=== PATIENT | male | born 1950 | race Caucasian/White ===

== ENCOUNTER 2021-04-25 12:05 | Inpatient (IN) | payer MEDICARE ==
[2021-04-25] MEDS ORDERED: Acetaminophen 325 MG Tab PO PRN (12:38)
[2021-04-25] MEDS ORDERED: Ondansetron 4 MG Tab.DIS PO PRN (12:38)
--- NOTE | 2021-04-25 12:49 | PCM.HP.2 ---
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 lucero for a right total knee arthroplasty. He did tolerate the procedure well. After the surgery he developed an ileus which did prolong his hospital stay. He also had some acute delirium secondary to the pain medications that he was on. He was being seen by physical therapy and occupational therapy and by 04/25/2021 and he was deemed good enough for discharge to an outside facility for ongoing therapies. He presents here today for short-term swing bed stay for physical therapy and occupational therapy as well as some nursing assistance prior to his ability to return home. At this time Markel notes that he is feeling well. He has no concerns other than getting strong enough to return home. Does have some swelling and discoloration to the right lower leg. Is doing well from a pain control standpoint would like to continue on with the Tylenol only given the reaction that he had high-level pain medications. We did review his full past medical history in his medications. Did discuss that he'll be on an oral medication for blood clot prevention and he notes understanding. He looks forward to getting started on his therapies and getting home. Past Medical History Cardiovascular History: Reports: High Cholesterol, Hypertension Respiratory History: Reports: Sleep Apnea Gastrointestinal History: Reports: Cirrhosis (secondary to chornic hep c), GERD (with erosive esophagitis) Genitourinary History: Reports: Prostate Disorder (BPH and s/p prostate cancer) Musculoskeletal History: Reports: Arthritis (s/p right total knee arthroplasty) Psychiatric History: Reports: Anxiety H&P Review of Systems - Review of Systems: Review Of Systems: See Below General: Reports: No Symptoms HEENT: Reports: No Symptoms Pulmonary: Reports: No Symptoms Cardiovascular: Reports: No Symptoms Gastrointestinal: Reports: No Symptoms Genitourinary: Reports: No Symptoms Musculoskeletal: Reports: Leg Pain (right knee and lower leg with some mild pains) Skin: Reports: Bruising (right lower leg) Psychiatric: Reports: No Symptoms Neurological: Reports: No Symptoms Hematologic/Lymphatic: Reports: No Symptoms Immunologic: Reports: No Symptoms Exam - Exam Exam: See Below - Vital Signs Vital Signs: Last Vital Signs Temp 98.0 F 04/25/21 12:41 Pulse 85 04/25/21 12:41 Resp BP 102/79 04/25/21 12:41 Pulse Ox 95 04/25/21 12:41 - Exam General: Alert, Oriented HEENT: Conjunctiva Clear, EOMI, Mucosa Moist & [place] Neck: Supple, Trachea Midline Lungs: Normal Respiratory Effort, Crackles (fine crackles at the bilateral bases (OHS?)) Cardiovascular: Regular Rate, Regular Rhythm GI/Abdominal Exam: Normal Bowel Sounds, Soft, Non-Tender Back Exam: Normal Inspection Extremities: Pedal Edema (RLE with some tenderness to palpation of the anterior calf) Skin: Warm, Dry, Intact, Other (surgical site is not evaluated as bandage is in place) Neuro Extensive - Mental Status: Alert, Oriented x3, Normal Mood/Affect, Normal Cognition Neuro Extensive - Motor, Sensory, Reflexes: CN II-XII Intact, Abnormal Gait (patient with use of walker and slight antalgia due to need of offloading right leg) Psychiatric: Alert, Normal Affect, Normal Mood Sepsis Event Note - Focused Exam Vital Signs: Vital Signs Temp Pulse BP Pulse Ox 04/25/21 12:41 98.0 F 85 102/79 95 *Q Meaningful Use (ADM) - VTE *Q VTE Anticoagulation Contraindications: Medical/Procedure Contrai - Problem List (1) Physical deconditioning SNOMED Code(s): 97496114996804 ICD Code: R53.81 - OTHER MALAISE Status: Acute Current Visit: Yes (2) Total knee replacement status SNOMED Code(s): 0186220009702, [id number], 4828604359882 ICD Code: Z96.659 - PRESENCE OF UNSPECIFIED ARTIFICIAL KNEE JOINT Status: Acute Current Visit: Yes Problem List Initiated/Reviewed/Updated: Yes Orders Last 24hrs: Active Orders 24 hr Category Date Time Status Patient Status [ADT] Routine ADT 04/25/21 12:38 Ordered Oxygen Therapy [RC] PRN Care 04/25/21 12:38 Ordered Up With Assistance [RC] ASDIRECTED Care 04/25/21 12:38 Ordered VTE/DVT Education [RC] PER UNIT ROUTINE Care 04/25/21 12:38 Ordered Vital Signs [RC] Q4H Care 04/25/21 12:38 Ordered Regular Diet [DIET] Diet 04/25/21 Lunch Ordered CBC WITH AUTO DIFF [HEME] AM Lab 04/26/21 05:11 Ordered COMPREHENSIVE METABOLIC PN,CMP [CHEM] AM Lab 04/26/21 05:11 Ordered Acetaminophen [TylenoL] Med 04/25/21 12:38 Ordered 650 mg PO Q4H PRN Ondansetron [Zofran ODT] Med 04/25/21 12:38 Ordered 4 mg PO Q4H PRN Anticoagulation Contraindications VTE [AST] Per Unit Oth 04/25/21 12:38 Ordered Routine Resuscitation Status Routine Resus Stat 04/25/21 12:38 Ordered Medication Orders Acetaminophen (Acetaminophen 325 Mg Tab) 650 mg PO Q4H PRN PRN Reason: Pain (Mild 1-3)/fever Ondansetron HCl (Ondansetron 4 Mg Tab.Dis) 4 mg PO Q4H PRN PRN Reason: nausea, able to take PO Assessment/Plan Comment:: Physical deconditioning S/P total right knee arthroplasty - Patient is status post total right knee arthroplasty on 04/17/2021 - A bit slow to recover and was discharged to [facility] or facility for ongoing PT/OT Plan - Continue eliquis 2.5 mg twice a day (Zechariah wanted us on for 12 days post operative which would bring us throug hthe evening of 04/29/21) - Lidocaine patch PRN - PT/OT - Tylenol prn for pain - heating pad and ice OK as needed Chronic: - HTN: Continue home losartan 50 mg daily, Coreg 3.125 mg twice a day added as well on discharge for uncontrolled BP - Coronary artery disease: Continue home aspirin, Lipitor 20 mg daily, nitro when necessary - Mood: Continue home citalopram 20 mg daily - GERD: Continue home omeprazole 20 mg daily - BPH: continue home flomax 0.4mg daily Diet: Regular DVT: oral anticoag through 04/29, will then discuss need for add-on CODE: FULL Disposition: Anticipate 1-2 weeks of hospital stay for therapies as well as nursing assistance prior to patient's ability to return home. - Mortality Measure Prognosis:: Good
[2021-04-25] MEDS ORDERED: Loperamide 2 MG Cap PO PRN (13:32)
[2021-04-25] MEDS ORDERED: Bisacodyl 5 MG Tab PO PRN (13:32)
[2021-04-25] MEDS ORDERED: Nitroglycerin 0.4 MG Tab.SL SL PRN (13:32)
[2021-04-25] MEDS: Carvedilol 3.125 MG Tab PO SCH (17:37)
[2021-04-25] MEDS: Apixaban 2.5 MG Tab PO SCH (19:28)
[2021-04-25] MEDS: MILK THISTLE 175 MG PO SCH (19:28)
[2021-04-25] MEDS: Citalopram 20 MG Tab PO SCH (19:28)
[2021-04-25] MEDS: Acetaminophen 500 MG Tab PO PRN (19:30)
[2021-04-26] MEDS: Omeprazole 20 MG Cap.CR PO SCH (06:33)
[2021-04-26] MEDS: Lidocaine 4% 1 each Patch TOP SCH (08:20)
[2021-04-26] MEDS: atorvaSTATin 10 MG Tab PO SCH (08:22)
[2021-04-26] MEDS: Carvedilol 3.125 MG Tab PO SCH ×2 (08:22→17:51)
[2021-04-26] MEDS: Apixaban 2.5 MG Tab PO SCH ×2 (08:22→20:26)
[2021-04-26] MEDS: Losartan 50 MG Tab PO SCH (08:22)
[2021-04-26] MEDS: Multivitamins with Iron/Calcium/Folic Acid/Minerals Tab PO SCH (08:23)
[2021-04-26] MEDS: Aspirin 81 MG Tab.EC PO SCH (08:23)
[2021-04-26] MEDS: MILK THISTLE 175 MG PO SCH ×2 (08:23→20:27)
[2021-04-26] MEDS: Polyethylene Glycol 3350 Powder 17 GM Packet PO SCH (08:24)
[2021-04-26] MEDS: TURMERIC ROOT EXTRACT 1000 MG PO SCH (08:24)
[2021-04-26 08:29] LABS: CHLORIDE,CL 103 mmol/L (98-107); SODIUM,NA 139 mmol/L (136-145)
[2021-04-26 08:34] LABS: ANION GAP 10.4 mmol/L (5-15)
[2021-04-26] MEDS: Acetaminophen 500 MG Tab PO PRN ×2 (11:38→21:43)
[2021-04-26] MEDS: Citalopram 20 MG Tab PO SCH (20:26)
[2021-04-26] MEDS: REMOVE LIDOCAINE TRDERM SCH (20:27)
[2021-04-27] MEDS: Omeprazole 20 MG Cap.CR PO SCH (06:00)
[2021-04-27] MEDS: atorvaSTATin 10 MG Tab PO SCH (07:26)
[2021-04-27] MEDS: Losartan 50 MG Tab PO SCH (07:26)
[2021-04-27] MEDS: Apixaban 2.5 MG Tab PO SCH ×2 (07:27→19:41)
[2021-04-27] MEDS: Aspirin 81 MG Tab.EC PO SCH (07:27)
[2021-04-27] MEDS: Multivitamins with Iron/Calcium/Folic Acid/Minerals Tab PO SCH (07:27)
[2021-04-27] MEDS: Carvedilol 3.125 MG Tab PO SCH ×2 (07:27→17:41)
[2021-04-27] MEDS: MILK THISTLE 175 MG PO SCH ×2 (07:28→19:42)
[2021-04-27] MEDS: TURMERIC ROOT EXTRACT 1000 MG PO SCH (07:28)
[2021-04-27] MEDS: Lidocaine 4% 1 each Patch TOP SCH (07:29)
[2021-04-27] MEDS: Polyethylene Glycol 3350 Powder 17 GM Packet PO SCH (07:31)
[2021-04-27] MEDS: Acetaminophen 500 MG Tab PO PRN ×2 (10:06→19:41)
[2021-04-27] MEDS: Citalopram 20 MG Tab PO SCH (19:41)
[2021-04-27] MEDS: REMOVE LIDOCAINE TRDERM SCH (19:52)
[2021-04-28] MEDS: Omeprazole 20 MG Cap.CR PO SCH ×2 (05:57→06:07)
[2021-04-28] MEDS: Aspirin 81 MG Tab.EC PO SCH (08:07)
[2021-04-28] MEDS: atorvaSTATin 10 MG Tab PO SCH (08:07)
[2021-04-28] MEDS: Multivitamins with Iron/Calcium/Folic Acid/Minerals Tab PO SCH (08:07)
[2021-04-28] MEDS: Carvedilol 3.125 MG Tab PO SCH ×2 (08:07→17:53)
[2021-04-28] MEDS: Losartan 50 MG Tab PO SCH (08:08)
[2021-04-28] MEDS: Lidocaine 4% 1 each Patch TOP SCH (08:08)
[2021-04-28] MEDS: MILK THISTLE 175 MG PO SCH ×2 (08:08→19:45)
[2021-04-28] MEDS: Apixaban 2.5 MG Tab PO SCH ×2 (08:08→19:46)
[2021-04-28] MEDS: TURMERIC ROOT EXTRACT 1000 MG PO SCH (08:09)
[2021-04-28] MEDS: Polyethylene Glycol 3350 Powder 17 GM Packet PO SCH (08:11)
[2021-04-28] MEDS: Acetaminophen 500 MG Tab PO PRN ×2 (13:02→19:46)
[2021-04-28] MEDS: Citalopram 20 MG Tab PO SCH (19:46)
[2021-04-28] MEDS: REMOVE LIDOCAINE TRDERM SCH (19:47)
[2021-04-29] MEDS: Acetaminophen 500 MG Tab PO PRN ×3 (01:35→18:47)
[2021-04-29] MEDS: Omeprazole 20 MG Cap.CR PO SCH (06:01)
[2021-04-29] MEDS: Losartan 50 MG Tab PO SCH (07:46)
[2021-04-29] MEDS: Aspirin 81 MG Tab.EC PO SCH (07:46)
[2021-04-29] MEDS: Carvedilol 3.125 MG Tab PO SCH ×2 (07:47→17:39)
[2021-04-29] MEDS: Multivitamins with Iron/Calcium/Folic Acid/Minerals Tab PO SCH (07:47)
[2021-04-29] MEDS: Apixaban 2.5 MG Tab PO SCH ×2 (07:47→20:36)
[2021-04-29] MEDS: atorvaSTATin 10 MG Tab PO SCH (07:47)
[2021-04-29] MEDS: Polyethylene Glycol 3350 Powder 17 GM Packet PO SCH (07:49)
[2021-04-29] MEDS: MILK THISTLE 175 MG PO SCH ×2 (07:49→20:38)
[2021-04-29] MEDS: TURMERIC ROOT EXTRACT 1000 MG PO SCH (07:50)
[2021-04-29] MEDS: Lidocaine 4% 1 each Patch TOP SCH (07:50)
--- OUTSIDE RECORDS SUMMARY | 2021-04-29 09:35 | XMSREPORT ---
:1950 Author Organization [facility] Address [address] [place] [address] [address] [place] [address] Care Team Providers Name Role Phone Provider, Attributed RESOURCE Attributed Provider Unavailab kolton Colon MD Primary Care Provider Reason for Visit Auth/Cert (Routine) Status Reason Specialty Diagnoses / Referred By Referred To Procedures Contact Contact Continuity of Diagnoses Bilateral primary osteoarthritis of knee Joaquín Robles MD Care Procedures ARTHROPLASTY KNEE CONDYLE & PLATEAU MEDIAL & LAT COMPARTMENTS [facility] [address] [place] [id number] Encounter Details Date Type Department Care Team Description 04/17/2021 - Hospital Encounter [facility] Joaquín Robles MD Ileus ([facility]) 04/25/[address] [place] [address] [address] [place] [address] [place] [address] [phone] Allergies Active Allergy Reactions Severity Noted Date Comments Codeine Other (Specify in Comments) Low 03/31/2013 Constipation documented as of this encounter (statuses as of 04/25/2021) Medications Medication Sig Dispensed Refills Start Date End Date Status milk thistle 250 MG CAPS Take 2 capsules 0 Active by mouth 1 time per day nitroglycerin Dissolve 1 30 tablet 1 06/18/2018 Acti ve (NITROSTAT) 0.4 mg tablet (0.4 mg) sublingual under the tongue tabletIndications: Every 5 minutes Nonobstructive as needed for atherosclerosis of chest pain May coronary artery repeat every 5 minutes for a total of 3 doses. 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) Additional Information Patient taking differently: 20 mg Oral Bedtime, Informant: Self, Reported on 04/17/2021 tamsulosin (FLOMAX) Take 0.4 mg by 0 Active 0.4 mg capsule mouth Take as directed atorvaSTATin Take 20 mg by mouth 0 Active (LIPITOR) 20 mg 1 time per day tablet Multiple Vitamin Take 2 tablets by 0 Active (MULTIVITAMIN) mouth 1 time per tablet day omeprazole Take 20 mg by mouth 0 Active (PRILOSEC) 20 mg 1 time a day in the capsule morning Take as directed Turmeric (QC TUMERIC Take 2,000 mg by 0 Active COMPLEX PO) mouth 1 time per day acetaminophen Take 2 tablets (650 40 tablet 0 04/18/ Active (TYLENOL) 325 mg mg) by mouth every 021 tabletIndications: 6 hours as needed Status post total for mild pain right knee replacement oxyCODONE (OXY-IR) 5 Take 1-2 tablets 40 tablet 0 04/18/2 Active mg tablet (immediate (5-10 mg) by mouth 021 release)Indications: Every 4 hours as Status post total needed for moderate right knee pain or severe pain replacement aspirin (ECOTRIN LOW Take 1 tablet (81 30 tablet 0 04/22/2 Active STRENGTH) 81 MG mg) by mouth 1 time 021 enteric coated per day tabletIndications: Status post total right knee replacement apixaban (ELIQUIS) Take 1 tablet (2.5 24 tablet 0 24/2 Active 2.5 MG mg) by mouth 2 021 tabletIndications: times a day Prophylaxis of DVT Indications: in Orthopedic Prophylaxis of Deep Surgery Vein Thrombosis in Orthopedic Surgery bisacodyl (DULCOLAX) Take 1 tablet (5 30 tablet 0 04/21/2 Active 5 mg mg) by mouth 2 021 tabletIndications: times a day as Status post total needed for right knee constipation replacement polyethylene glycol Take 1 packet by 30 packet 0 04/22/2 Active (MIRALAX) 17 g mouth 1 time per 021 packetIndications: day Dissolve in 4 Status post total to 8 ounces of right knee water, juice, soda, replacement coffee, tea. losartan 50 mg Take 1 tablet (50 90 tablet 4 25/2 04/27/ Active tabletIndications: mg) by mouth 1 time 021 0 22 Essential per day hypertension acetaminophen Take 2 tablets 60 tablet 0 A ctive (TYLENOL) 500 mg (1,000 mg) by mouth 021 tabletIndications: Every 6 hours Chronic low back pain with sciatica, sciatica laterality unspecified, unspecified back pain laterality lidocaine (LIDODERM) Apply 2 patches 30 patch 0 Active 5% patchIndications: topically 1 time 021 Chronic low back per day Patches may pain with sciatica, be left on for up sciatica laterality 12 hours in a 24 unspecified, hour period. unspecified back pain laterality loperamide (IMODIUM) Take 2 caps after 20 capsule 0 Active 2 mg the first loose 021 capsuleIndications: stool, then 1 cap Functional diarrhea after each loose stool, but no more than 8 caps per day. carVEDilol (COREG) Take 1 tablet 180 tablet 4 2 Active 3.125 mg (3.125 mg) by mouth 021 022 tabletIndications: 2 times a day with Essential meals hypertension doxycycline Take 1 tablet (100 20 tablet 0 2 Discontinued (VIBRAMYCIN) 100 mg mg) by mouth 2 (Therapy tabletIndications: times a day completed) Upper respiratory tract infection, unspecified type benzonatate Take 1 capsule (200 30 capsule 0 Discontinued (TESSALON) 200 MG mg) by mouth 3 018 021 (Therapy capsuleIndications: times a day as completed) Cough needed for cough sildenafil 20 mg Take up to 5 tabs 30 tablet 6 04/17 Discontinued tabletIndications: one hour before 021 (Duplicate) Other male erectile sexual intercourse dysfunction losartan 25 mg Take 1 tablet (25 90 tablet 3 2 Discontinued (Stop tabletIndications: mg) by mouth 1 time 018 0 21 Taking at Hypertension, per day Discha rge) unspecified type pantoprazole Take 1 tablet (40 60 tablet 1 2 Discontinued (PROTONIX) 40 mg mg) by mouth 2 021 (Duplicate) enteric coated times a day before tabletIndications: meals Erosive esophagitis sildenafil (VIAGRA) Take 1 tab one hour 6 tablet 11 Discontinued (Stop 100 MG prior to 021 021 Taking at tabletIndications: anticipated sexual Discharge) Erectile dysfunction activity. 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 Perez Vertebral body hemangioma 07/19/2013 Overview: T 6 Chronic hepatitis C 07/17/2013 Prostate cancer 02/17/2013 Elevated PSA 01/06/2013 Arthritis of knee, degenerative 10/03/2012 documented as of this encounter (statuses as of 04/25/2021) Resolved Problems Problem Noted Date Resolved Date Paraspinal muscle spasm 08/10/2013 08/31/2013 Acute back pain 07/19/2013 08/10/2013 documented as of this encounter (statuses as of 04/25/2021) Immunizations Name Administration Dates Next Due Hep A-Hep B 11/10/2013, 05/12/2013, 04/11/2013 Influenza Vaccine,unspecified 09/22/2000 Pneumococcal Conj PCV13 12/16/2017 documented as of this encounter Social History Tobacco Use Types Packs/Day Years Used Date Never Smoker Smokeless Tobacco: Never Used Alcohol Use Standard Drinks/Week Comments Yes 0 (1 standard drink = 0.6 oz pure alcoho l) Alcohol Habits Answer Date Recorded How often do you have a drink containing alcohol? Monthly or less 05/12/2019 How many drinks containing alcohol do you have on a Not aske d typical day when you are drinking? How often do you have six or more drinks on one Not asked occasion? Sexually Active Control Partners Comments Yes Female Sex Assigned at Date Recorded Not on file documented as of this encounter Last Filed Vital Signs Vital Sign Reading Time Taken Comments Blood Pressure 179/88 04/25/2021 7:08 AM CDT Pulse 74 04/25/2021 7:08 AM CDT Temperature 36.7 C (98.1 F) 04/25/2021 7:08 AM CDT Respiratory Rate 18 04/25/2021 7:08 AM CDT Oxygen Saturation 98% 04/25/2021 7:08 AM CDT Inhaled Oxygen Concentration - - Weight 158 kg (348 lb 5.2 oz) 04/17/2021 8:58 AM CDT Height 182.9 cm (6') 04/15/2021 8:56 AM CDT Body Mass Index 47.24 04/15/2021 8:56 AM CDT documented in this encounter Functional Status Functional Status Response Date of Assessment Is the person deaf or does he/she have serious difficulty No 06/04/2018 hearing? Is this person blind or does he/she have difficulty No 06/04/2018 seeing even when wearing glasses? Do you have difficulty with walking, balance, climbing Yes 06/04/2018 stairs, or had a fall in the last 3 months? Does the patient have difficulty dressing or bathing? No 06/04/2018 Because of a physical, mental, or emotional condition; No 06/04/2018 does this person have difficulty doing errands alone such as visiting a doctor's office or shopping? Cognitive Status Response Date of Assessment Because of a physical, mental, or emotional condition; No 06/04/2018 does this person have serious difficulty concentrating, remembering, or making decisions? documented as of this encounter Discharge Summaries See, Dale Short MD - 04/21/2021 8:53 AM CDT Images from the original note were not included. Hospital Discharge Summary Attending Physician: Joaquín Robles MD Attending Physician Specialty: Orthopedic Surgery Admit Date: 04/17/2021 Discharge Date: 05/24/21 Primary Care Physician: Kyle Colon MD Discharge Diagnoses 1. Ileus (HCC) 2. Status post total right knee replacement Total knee replacement status 3.Constipation, postoperative ileus. Resolved. 4.Coronary artery disease 5. Hypertension 6. Prediabetes 7. Depression 8. Hyperlipidemia 9. Morbid obesity 10. History of prostate cancer. BPH: 11.Liver cirrhosis secondary to Hepatitis C infection 12. History of gastric ulcers Hospital Course The patient is a 71-year-old male with past medical history of hypertension, coronary artery disease, hyperlipidemia, morbid obesity, prostate cancer, and liver cirrhosis secondary to hepatitis C infection. The patient was admitted by Dr. Joaquín Robles on 04/17/2021 for a right total knee replacement. Postoperatively, he developed ileus. He was seen by PT, OT, and it is recommended that he go to a fdc for continued therapy. He will follow up with his primary care provider and Dr. Robles after discharge. Receipt: [id number] Trans ID: [id number] PRODUCTION SANITIZER PRODUCTION SANITIZER LabTests Pending at Discharge Unresulted Pathology Orders (From admission, onward) Start Ordered 04/17/211201 TISSUE EXAM RELEASE UPON ORDERING, Routine Comments: Specimen A: Right knee bone and tissue Start: 04/17/211201 End: None 04/17/211201 Follow-Up Scheduled Contact information for follow-up [place], [facility], RESOURCE [address] [place] [id number] Next Steps: Follow up Instructions: Staff will provide services and therapies as needed. Preliminary Discharge Medications This list of medications is preliminary and tentative. Please see the After Visit Summary for the final and accurate medication list. Discharge Medication List START taking these medications START: acetaminophen 325 mg tablet Commonly known as: TYLENOL Dose: 650 mg Take 2 tablets (650 mg) by mouth every 6 hours as needed for mild pain START: apixaban 2.5 MG tablet Commonly known as: ELIQUIS Dose: 2.5 mg Take 1 tablet (2.5 mg) by mouth 2 times a day Indications: Prophylaxis of Deep Vein Thrombosis in Orthopedic Surgery START: aspirin 81 MG enteric coated tablet Commonly known as: ECOTRIN LOW STRENGTH Dose: 81 mg Take 1 tablet (81 mg) by mouth 1 time per day Start taking on: April 22, 2021 START: bisacodyl 5 mg tablet Dose: 5 mg Take 1 tablet (5 mg) by mouth 2 times a day as needed for constipation START: oxyCODONE 5 mg tablet (immediate release) Commonly known as: OXY-IR Dose: 5-10 mg Take 1-2 tablets (5-10 mg) by mouth Every 4 hours as needed for moderate pain or severe pain START: polyethylene glycol 17 g packet Commonly known as: MIRALAX Dose: 1 packet Take 1 packet by mouth 1 time per day Dissolve in 4 to 8 ounces of water, juice, soda, coffee, tea. Start taking on: April 22, 2021 CONTINUE taking these medications which have NOT CHANGED CONTINUE: atorvaSTATin 20 mg tablet Commonly known as: LIPITOR Dose: 20 mg Take 20 mg by mouth 1 time per day CONTINUE: escitalopram 20 mg tablet Commonly known as: LEXAPRO TAKE 1 TABLET BY MOUTH EVERY NIGHT AT BEDTIME CONTINUE: losartan 25 mg tablet Dose: 25 mg Take 1 tablet (25 mg) by mouth 1 time per day CONTINUE: milk thistle 250 MG Caps Dose: 2 capsule Take 2 capsules by mouth 1 time per day CONTINUE: multivitamin tablet Dose: 2 tablet Take 2 tablets by mouth 1 time per day CONTINUE: nitroglycerin 0.4 mg sublingual tablet Commonly known as: NITROSTAT Dose: 0.4 mg Dissolve 1 tablet (0.4 mg) under the tongue Every 5 minutes as needed for chest pain May repeat every 5 minutes for a total of 3 doses. CONTINUE: omeprazole 20 mg capsule Commonly known as: priLOSEC Dose: 20 mg Take 20 mg by mouth 1 time a day in the morning Take as directed CONTINUE: QC TUMERIC COMPLEX PO Dose: 2,000 mg Take 2,000 mg by mouth 1 time per day CONTINUE: tamsulosin 0.4 mg capsule Commonly known as: FLOMAX Dose: 0.4 mg Take 0.4 mg by mouth Take as directed You might also be taking other medications not listed above. If you have questions about any of your other medications, talk to the person who prescribed them or your Primary Care Provider. STOP taking these medications STOP: sildenafil 100 MG tablet Commonly known as: VIAGRA Where to Get Your Medications These medications were sent to [facility]/pharmacy #[id number] [place] [id number] [place] [id number] [place] [id number] acetaminophen 325 mg tablet apixaban 2.5 MG tablet aspirin 81 MG enteric coated tablet bisacodyl 5 mg tablet oxyCODONE 5 mg tablet (immediate release) polyethylene glycol 17 g packet Physical Exam Vitals and nursing note reviewed. Procedures Performed and Findings All procedures during admission Procedure(s): Right - RIGHT TOTAL KNEE REPLACEMENT - Wound Class: Clean Consultations Obtained CONSULT INTERNAL MEDICINE Discharge Disposition Instructions for after discharge Call 911 and seek emergency care if you experience any chest pain, shortness of breath or if you are coughing up blood Change with occlusive dressing at discharge. Leave dressing on for 7 days, then change every 7 dayswith occlusive dressing until follow up with provider. Purchase 4"x12" Mepilex dressing from pharmacy at discharge Contact your doctor if you develop a temperature of 101 degrees or greater Contact your doctor if you experience any numbness or tingling in your surgical extremity Contact your doctor if you have any pain or swelling in the calf of either leg Contact your doctor if you have any questions in the first week Contact your doctor if you have any redness or warmth around your incision. (Bruising is normal, expect the area around your incision to be bruised and many different shades of purple/yellow as the healing stages progress) Contact your doctor if you have significant side effects from your pain medications such as rash, itching, upset stomach or vomiting Contact your doctor if you notice any drainage from your incision or if the edges of your incision come apart Contact your doctor if your pain medications are not keeping your pain at a tolerable level Elevate affected extremity Elevate affected extremity for 30 minutes 4 times per day and as needed for swelling. While lying flat in bed or on the sofa, elevate your surgical leg on 2-3 pillows so it is above the level of your heart. This will help reduce swelling and pain. Swelling is to be expected for the first couple of weeks after an orthopedic surgery. Ice and elevation are important ways to help manage the swelling and pain. Ice to affected area Ice to affected area: 4-5 times per day for 30 minutes and as needed for swelling. Assess skin every 2 hrs. Do not apply directly on skin. May not return to work until after follow-up appointment No driving No driving until follow-up with your health care provider No tub bath until directed Do not take a tub bath, go swimming, or sit in a hot tub until your doctor tells you that you may do so. No use of alcohol or non-prescription drugs No use of alcohol. Alcohol affects your balance and can be very harmful if taken with pain medications. Also, do not take any non-prescription drugs not listed on your after visit summary without talking with your doctor first. They may cause increased bleeding and other harmful side effects. Notify provider with any questions or concerns Pharmacist: Review anticoagulation indication and dosing for accuracy Pharmacist, review the discharge AVS and: 1. The provider has specified that anticoagulation is not indicated outside thromboprophylaxis in the setting of orthopedic surgery. Please review and contact the prescribing physician if there are inaccuracies in anticoagulation prescribing (ex. wrong dose ordered for indication). 2. Ensure any doses given in the hospital are subtracted from the outpatient prescription quantity if on a set dose for a defined period of time. 3. If anticoagulation was e-prescribed, ensure patient is able to obtain prescription on discharge to prevent delays in therapy (ex. not sent to a mail order pharmacy where therapy could be interruptedfor multiple days). Contact the prescribing provider if medication should be filled locally on discharge. Resume home diet Resume home diet Resume normal activity Walk frequently and gradually increase the distance you are walking Weight bearing status - As tolerated When showering, cover your dressing with waterproof protection such as saran wrap or press and sealand tape so the dressing does not get wet. Medical Decision Making A total of 35 minutes were spent on discharge coordination. documented in this encounter Medications at Time of Discharge Medication Sig Dispensed Refills Start Date End Date loperamide (IMODIUM) 2 Take 2 caps after 20 capsule 0 2020 mg capsuleIndications: the first loose Functional diarrhea stool, then 1 cap after each loose stool, but no more than 8 caps per day. carVEDilol (COREG) 3.125 Take 1 tablet (3.125 180 tablet 4 0 04/25/2021 04/30/2022 mg tabletIndications: mg) by mouth 2 times Essential hypertension a day with meals aspirin (ECOTRIN LOW Take 1 tablet (81 30 tablet 0 04/22/20 21 STRENGTH) 81 MG enteric mg) by mouth 1 time coated per day tabletIndications: Status post total right knee replacement apixaban (ELIQUIS) 2.5 Take 1 tablet (2.5 24 tablet 0 04/21 MG tabletIndications: mg) by mouth 2 times Prophylaxis of DVT in a day Indications: Orthopedic Surgery Prophylaxis of Deep Vein Thrombosis in Orthopedic Surgery bisacodyl (DULCOLAX) 5 Take 1 tablet (5 mg) 30 tablet 0 mg tabletIndications: by mouth 2 times a Status post total right day as needed for knee replacement constipation polyethylene glycol Take 1 packet by 30 packet 0 04/22/2021 (MIRALAX) 17 g mouth 1 time per day packetIndications: Dissolve in 4 to 8 Status post total right ounces of water, knee replacement juice, soda, coffee, tea. losartan 50 mg Take 1 tablet (50 90 tablet 4 04/22/2021 tabletIndications: mg) by mouth 1 time Essential hypertension per day acetaminophen (TYLENOL) Take 2 tablets 60 tablet 0 04/21/20 21 500 mg (1,000 mg) by mouth tabletIndications: Every 6 hours Chronic low back pain with sciatica, sciatica laterality unspecified, unspecified back pain laterality lidocaine (LIDODERM) 5% Apply 2 patches 30 patch 0 021 patchIndications: topically 1 time per Chronic low back pain day Patches may be with sciatica, sciatica left on for up 12 laterality unspecified, hours in a 24 hour unspecified back pain period. laterality acetaminophen (TYLENOL) Take 2 tablets (650 40 tablet 0 325 mg mg) by mouth every 6 tabletIndications: hours as needed for Status post total right mild pain knee replacement oxyCODONE (OXY-IR) 5 mg Take 1-2 tablets 40 tablet 0 2020 tablet (immediate (5-10 mg) by mouth release)Indications: Every 4 hours as Status post total right needed for moderate knee replacement pain or severe pain Turmeric (QC TUMERIC Take 2,000 mg by 0 COMPLEX PO) mouth 1 time per day tamsulosin (FLOMAX) 0.4 Take 0.4 mg by mouth 0 mg capsule Take as directed atorvaSTATin (LIPITOR) Take 20 mg by mouth 0 20 mg tablet 1 time per day Multiple Vitamin Take 2 tablets by 0 (MULTIVITAMIN) tablet mouth 1 time per day omeprazole (PRILOSEC) 20 Take 20 mg by mouth 0 mg capsule 1 time a day in the morning Take as directed escitalopram (LEXAPRO) TAKE 1 TABLET BY 90 tablet 0 019 20 mg tabletIndications: MOUTH EVERY NIGHT AT Alcoholic cirrhosis of BEDTIME liver without ascites (HCC) nitroglycerin Dissolve 1 tablet 30 tablet 1 06/18/2018 (NITROSTAT) 0.4 mg (0.4 mg) under the sublingual tongue Every 5 tabletIndications: minutes as needed Nonobstructive for chest pain May atherosclerosis of repeat every 5 coronary artery minutes for a total of 3 doses. milk thistle 250 MG CAPS Take 2 capsules by 0 mouth 1 time per day documented as of this encounter Progress Notes See, Dale Short MD - 04/23/2021 9:05 AM CDT Images from the original note were not included. DAILY PROGRESS NOTE Markel Lares is a 71yr old male admitted on 04/17/2021 7:41 AM. Impression / Plan 1. Status post right total knee arthroplasty 04/17/2021- continue PT,OT, plan to transfer to rehab 2. Delirium from tramadol -resolved 3. Ileus-dc reglan , resolved 4. Coronary artery disease: Aspirin, Lipitor. 5. Hypertension: increase losartan 6. Prediabetes:dc blood glucose monitoring and Sliding scale insulin 7. Depression: Continue Lexapro 8. Hyperlipidemia: Continue Lipitor 9. Morbid obesity: Weight management as outpatient 10. History of prostate cancer. BPH: Continue Flomax 11. 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 History of gastric ulcers: Continue omeprazole. 13. Dispo: insurance denied placement to [facility]. 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 Daughter at bedside Review of Systems Review of Systems Constitutional: Positive for activity change. Negative for appetite change. HENT: Negative for mouth sores. Eyes: Negative for discharge. Respiratory: Negative for shortness of breath. Cardiovascular: Negative for chest pain. Gastrointestinal: Negative for abdominal distention. Genitourinary: Positive for frequency. Negative for dysuria. Musculoskeletal: Positive for arthralgias and joint swelling. Skin: Positive for color change and wound. Neurological: Negative for dizziness. Hematological: Negative for adenopathy. Psychiatric/Behavioral: Negative for agitation. All other systems reviewed and are negative. Physical Exam Vital Signs: Temp: 97.6 F (36.4 C) | BP: 145/69 | Pulse: 79 | Resp: 16 | Pain Ratin (out of 10) | Weight: (!) 158 kg (348 lb 5.2 oz) | O2 Device: Room Air O2 Flow Rate (L/min): 2 l/min | SpO2: 96 % (RA) Maximum Temperatures (last 24 hours) Temperature Maximum Max Temp 99.3 F (37.4 C) Intake and Output: 04/22 0700 - 04/23 0659 In: 1542 [Oral:250] Out: 750 [Urine:650; Emesis:100] Physical Exam Vitals and nursing note reviewed. Constitutional: Appearance: Normal appearance. He is obese. HENT: Head: Normocephalic and atraumatic. Nose: Nose normal. Eyes: General: Right eye: No discharge. Left eye: No discharge. Cardiovascular: Rate and Rhythm: Normal rate and regular rhythm. Pulmonary: Effort: Pulmonary effort is normal. Breath sounds: Normal breath sounds. Abdominal: Palpations: Abdomen is soft. Musculoskeletal: Right lower leg: Edema present. Left lower leg: Edema present. Skin: General: Skin is warm and dry. Findings: Bruising present. Neurological: General: No focal deficit present. Mental Status: He is alert. Labs Labs (Last day) 04/23/21 0557 - 04/22/21 0934 CBC 04/23/21 0557 04/22/21 0934 CBC WBC 4.0-11.0 (K/uL) 6.5 9.8 RBC 4.40-5.80 (M/uL) 4.03 4.40 Hemoglobin 13.5-17.5 (g/dL) 12.0 13.1 Hematocrit 40.0-50.0 (%) 37.5 40.6 MCV 80.0-98.0 (fL) 93.1 92.3 MCH 25.5-34.0 (pg) 29.8 29.8 MCHC 31.5-36.5 (g/dL) 32.0 32.3 RDW-CV 11.5-15.5 (%) 14.9 14.8 RDW-SD 35.5-50.0 (fl) 48.2 48.0 Platelet Count 140-400 (K/uL) 147 186 MPV 8.5-12.0 (fL) 10.7 10.6 04/23/21556 - 04/22/21 0934 CHEMISTRY 04/23/2155604/22/21 09 CHEMISTRY Glucose 70-100 (mg/dL) 115 140 Sodium 135-145 (meq/L) 138 137 Potassium 3.5-5.3 (meq/L) 3.9 4.1 Chloride 99-110 (meq/L) 105 100 CO2 20-29 (meq/L) 26 28 Anion Gap with K 6-20 (meq/L) 11 13 BUN 6-22 (mg/dL) 15 17 Creatinine 0.80-1.30 (mg/dL) 0.70 0.81 BUN/Creatinine Ratio 10.0-25.0 21.4 21.0 Calcium 8.5-10.5 (mg/dL) 8.2 8.7 Corrected Calcium 8.5-10.5 (mg/dL) 8.8 9.0 Bilirubin Total 0.2-1.2 (mg/dL) 1.7 1.9 Alkaline Phosphatase 30-150 (U/L) 66 75 ALT - SGPT 0-55 (U/L) 44 40 AST - SGOT 0-35 (U/L) 46 46 Protein Total 6.0-8.2 (g/dL) 5.7 6.4 Albumin 3.5-5.0 (g/dL) 3.2 3.6 eGFR >=60 (mL/min/1.73m2) >90 >90 eGFR Non- >=60 (mL/min/1.73m2) >90 >90 04/23/21556 - 04/22/21 0934 DIFFERENTIAL 04/23/2155604/22/21 09 DIFFERENTIAL Seg Neut Absolute 1.8-8.0 (K/uL) 4.0 8.1 Lymphocytes Absolute 0.8-4.1 (K/uL) 1.2 0.7 Monocytes Absolute 0.0-1.0 (K/uL) 0.9 0.9 Eosinophils Absolute 0.0-0.7 (K/uL) 0.3 0.1 Basophil Absolute 0.0-0.2 (K/uL) 0.0 0.0 Neutrophils Percent (%) 62.0 82.1 Neutrophils Abs. (Segs and Bands) (/uL) 4,000 8,100 Lymphocytes Percent (%) 19.1 6.9 Monocytes Percent (%) 14.4 9.5 Eosinophils Percent (%) 4.0 1.2 Basophil Percent (%) 0.2 0.1 04/22/21 1515 - 04/22/21 1515 FECAL TESTING MISC 04/22/21 1515 [place] [facility] [place] Presumptive Negative Presumptive Negative C difficile Toxin B Gene NAD Not Detected Not Detected 04/23/21 0614 - 04/22/21 1106 GLUCOSE POINT OF CARE 04/23/21 0614 04/22/21 2104 04/22/21 1703 04/22/21 1106 GLUCOSE POINT OF CARE Glucose POC 70-99 (mg/dL) 111 109 120 139 04/23/21 0557 - 04/22/21 0934 OTHER 04/23/21 0557 04/22/21 0934 OTHER [age]Years) [age] Medical Decision making MDM Reviewed: previous chart, nursing note and vitals eeDale MD - 04/22/2021 9:24 AM CDT Images from the original note were not included. DAILY PROGRESS NOTE Markel Lares is a 71yr old male admitted on 04/17/2021 7:41 AM. Impression / Plan 1. Status post right total knee arthroplasty 04/17/2021- continue PT,OT, plan to transfer to rehab 2. Delirium from tramadol -resolved 3. Ileus- start reglan , obtain abdominal x-ray and cbc, cmp 4. Coronary artery disease: Aspirin, Lipitor. 5. Hypertension: increase losartan 6. Prediabetes: Sliding scale insulin 7. Depression: Continue Lexapro 8. Hyperlipidemia: Continue Lipitor 9. Morbid obesity: Weight management as outpatient 10. History of prostate cancer. BPH: Continue Flomax 11. 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 History of gastric ulcers: Continue omeprazole. 13. Dispo: [facility] once insurance approve Interval History HPI Patient had nausea and vomiting this morning.he had diarrhea too Review of Systems Review of Systems Constitutional: Positive for activity change. Negative for appetite change. HENT: Negative for mouth sores. Eyes: Negative for discharge. Respiratory: Negative for shortness of breath. Cardiovascular: Negative for chest pain. Gastrointestinal: Negative for abdominal distention. Genitourinary: Positive for frequency. Negative for dysuria. Musculoskeletal: Positive for arthralgias and joint swelling. Skin: Positive for color change and wound. Neurological: Negative for dizziness. Hematological: Negative for adenopathy. Psychiatric/Behavioral: Negative for agitation. All other systems reviewed and are negative. Physical Exam Vital Signs: Temp: 98.3 F (36.8 C) | BP: 154/84 | Pulse: 88 | Resp: 16 | Pain Ratin (out of 10) | Weight: (!) 158 kg (348 lb 5.2 oz) | O2 Device: Room Air O2 Flow Rate (L/min): 2 l/min | SpO2: 93 % Maximum Temperatures (last 24 hours) Temperature Maximum Max Temp 98.8 F (37.1 C) Intake and Output: 04/21 0700 - 04/22 0659 In: - Out: 850 [Urine:650; Emesis:200] Physical Exam Vitals and nursing note reviewed. Constitutional: Appearance: Normal appearance. He is obese. HENT: Head: Normocephalic and atraumatic. Nose: Nose normal. Eyes: General: Right eye: No discharge. Left eye: No discharge. Cardiovascular: Rate and Rhythm: Normal rate and regular rhythm. Pulmonary: Effort: Pulmonary effort is normal. Breath sounds: Normal breath sounds. Abdominal: Palpations: Abdomen is soft. Musculoskeletal: Right lower leg: Edema present. Left lower leg: Edema present. Skin: General: Skin is warm and dry. Findings: Bruising present. Neurological: General: No focal deficit present. Mental Status: He is alert. Labs Labs (Last day) 04/22/21 0601 - 04/21/21 1642 GLUCOSE POINT OF CARE 04/22/21 0601 04/21/21 2124 04/21/21 1642 GLUCOSE POINT OF CARE Glucose POC 70-99 (mg/dL) 161 132 142 04/21/21 1003 - 04/21/21 1003 URINALYSIS 04/21/21 1003 URINALYSIS Color Urine Selene, Dark Yellow, Straw, Yellow, Colorless Yellow Clarity Urine Clear Clear Specific [place] 1.002-1.030 1.015 Glucose Urine Negative Negative Bilirubin Urine Negative Negative Ketones Urine Negative, 5 mg/dL, 10 mg/dL 5 mg/dL Blood Urine Negative Negative PH Urine 5.0, 5.5, 6.0, 6.5, 7.0, 7.5, 8.0 5.0 Protein Urine Negative Negative Nitrite Negative Negative Leukocyte Esterase Urine Negative Negative Urobilinogen < 2 mg/dL < 2 mg/dL Medical Decision making MDM Reviewed: previous chart, nursing note and vitals Dale tao MD - 04/21/2021 3:00 PM CDT Images from the original note were not included. DAILY PROGRESS NOTE Markel Lares is a 71yr old male admitted on 04/17/2021 7:41 AM. Impression / Plan 1. Status post right total knee arthroplasty 04/17/2021- continue PT,OT, plan to transfer to rehab 2. Delirium from tramadol last night- tramadol dc, continue tylenol and oxycodone 3. Ileus- resolved, continue bowel regimen 4. Coronary artery disease: Aspirin, Lipitor. 5. Hypertension: Continue losartan 6. Prediabetes: Sliding scale insulin 7. Depression: Continue Lexapro 8. Hyperlipidemia: Continue Lipitor 9. Morbid obesity: Weight management as outpatient 10. History of prostate cancer. BPH: Continue Flomax 11. 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 History of gastric ulcers: Continue omeprazole. 13. Dispo: [facility] once insurance approve Interval History HPI Patient sitting in the chair, had frequency Review of Systems Review of Systems Constitutional: Positive for activity change. Negative for appetite change. HENT: Negative for mouth sores. Eyes: Negative for discharge. Respiratory: Negative for shortness of breath. Cardiovascular: Negative for chest pain. Gastrointestinal: Negative for abdominal distention. Genitourinary: Positive for frequency. Negative for dysuria. Musculoskeletal: Positive for arthralgias and joint swelling. Skin: Positive for color change and wound. Neurological: Negative for dizziness. Hematological: Negative for adenopathy. Psychiatric/Behavioral: Negative for agitation. All other systems reviewed and are negative. Physical Exam Vital Signs: Temp: 98.8 F (37.1 C) | BP: 141/82 | Pulse: 93 | Resp: 18 | Pain Ratin (out of 10) | Weight: (!) 158 kg (348 lb 5.2 oz) | O2 Device: Room Air O2 Flow Rate (L/min): 2 l/min | SpO2: 96 % Maximum Temperatures (last 24 hours) Temperature Maximum Max Temp 99 F (37.2 C) Intake and Output: 04/20 0700 - 04/21 0659 In: - Out: 850 [Urine:850] Physical Exam Vitals and nursing note reviewed. Constitutional: Appearance: Normal appearance. He is obese. HENT: Head: Normocephalic and atraumatic. Nose: Nose normal. Eyes: General: Right eye: No discharge. Left eye: No discharge. Cardiovascular: Rate and Rhythm: Normal rate and regular rhythm. Pulmonary: Effort: Pulmonary effort is normal. Breath sounds: Normal breath sounds. Abdominal: Palpations: Abdomen is soft. Musculoskeletal: Right lower leg: Edema present. Left lower leg: Edema present. Skin: General: Skin is warm and dry. Findings: Bruising present. Neurological: General: No focal deficit present. Mental Status: He is alert. Labs Labs (Last day) 04/21/21 0857 - 04/20/21 1734 GLUCOSE POINT OF CARE 04/21/21 0857 04/21/21 0611 04/20/21 2122 04/20/21 1734 GLUCOSE POINT OF CARE Glucose POC 70-99 (mg/dL) 128 151 107 116 04/21/21 1003 - 04/21/21 1003 URINALYSIS 04/21/21 1003 URINALYSIS Color Urine Selene, Dark Yellow, Straw, Yellow, Colorless Yellow Clarity Urine Clear Clear Specific [place] 1.002-1.030 1.015 Glucose Urine Negative Negative Bilirubin Urine Negative Negative Ketones Urine Negative, 5 mg/dL, 10 mg/dL 5 mg/dL Blood Urine Negative Negative PH Urine 5.0, 5.5, 6.0, 6.5, 7.0, 7.5, 8.0 5.0 Protein Urine Negative Negative Nitrite Negative Negative Leukocyte Esterase Urine Negative Negative Urobilinogen < 2 mg/dL < 2 mg/dL Medical Decision making MDM Reviewed: previous chart, nursing note and vitals Delfino Smith MD - 04/20/2021 9:48 AM CDT Images from the original note were not included. DAILY PROGRESS NOTE Markel Lares is a 71yr old male admitted on 04/17/2021 7:41 AM. Impression / Plan Active Problems: Ileus (HCC) Status post total right knee replacement Total knee replacement status Resolved Problems: * No resolved hospital problems. * Plan: Status post right total knee arthroplasty 04/17/2021 -Care as per Ortho team. -PT/OT. -Pain management. Constipation, postoperative ileus. Resolved. Post-op nausea, no emesis -advance diet as tolerated -bowel regimen prn, pt had 8 BMs -zofran, reglan prn for nausea Chronic medical conditions: Coronary artery disease: Aspirin, Lipitor. Hypertension: Continue losartan Prediabetes: Sliding scale insulin Depression: Continue Lexapro Hyperlipidemia: Continue Lipitor Morbid obesity: Weight management as outpatient History of prostate cancer. BPH: Continue Flomax Liver cirrhosis secondary to Hepatitis C infection: Status post Hepatitis C treatment History of gastric ulcers: Continue omeprazole. Dispo: SNF vs [facility] on Wednesday Interval History HPI No acute events overnight. Content patient resolved. Patient had a bowel movement since yesterday. Reports has abdominal paindistention improved. Still reports nausea. Right leg pain, well controlled with current regimen. Review of Systems Review of Systems Constitutional: Negative for fever. Respiratory: Negative for cough and shortness of breath. Cardiovascular: Negative for chest pain, palpitations and leg swelling. Gastrointestinal: Positive for diarrhea and nausea. Negative for abdominal distention, abdominal pain, constipation and vomiting. Genitourinary: Negative for dysuria. Musculoskeletal: Positive for arthralgias. Neurological: Negative for dizziness. Physical Exam Vital Signs: Temp: 98.5 F (36.9 C) | BP: 135/101 | Pulse: 94 | Resp: 16 | Pain Ratin (out of10) | Weight: (!) 158 kg (348 lb 5.2 oz) | O2 Device: Room Air O2 Flow Rate (L/min): 2 l/min | SpO2: 90 % Maximum Temperatures (last 24 hours) Temperature Maximum Max Temp 98.5 F (36.9 C) Intake and Output: 04/19 0700 - 04/20 0659 In: - Out: 250 [Urine:250] Physical Exam Vitals and nursing note reviewed. Cardiovascular: Rate and Rhythm: Normal rate and regular rhythm. Pulmonary: Breath sounds: No wheezing or rales. Abdominal: General: There is distension. Tenderness: There is abdominal tenderness. Hernia: A hernia is present. Musculoskeletal: Right lower leg: No edema. Left lower leg: No edema. Neurological: General: No focal deficit present. Mental Status: He is alert. Labs Labs (Last day) 04/20/21 0554 - 04/19/21 1123 GLUCOSE POINT OF CARE 04/20/21 0554 04/19/21 1715 04/19/21 1123 GLUCOSE POINT OF CARE Glucose POC 70-99 (mg/dL) 143 132 109 Medical Decision making Medical Decision Making enedict, Gina Gonzalez APRN-EDITOR IN CHIEF - 04/20/2021 8:59 AM CDT Orthopedic Progress Note Markel Lares is a 71yr old male admitted on 04/17/2021 7:41 AM 3 Days Post-Op, patient of Joaquín Robles MD Status Post: Procedure(s): RIGHT TOTAL KNEE REPLACEMENT Secondary diagnoses: Patient Active Problem List Diagnosis Arthritis of knee, degenerative Elevated PSA Prostate cancer (HCC) Chronic hepatitis C (HCC) Compression fracture Vertebral body hemangioma Back pain Erosive esophagitis Radiation proctitis Hepatic cirrhosis due to chronic hepatitis C infection (HCC) Radiation induced proctitis Thoracic back pain Low back pain Cirrhosis of liver without ascites (HCC) Other chest pain Chest pain, non-cardiac Erectile dysfunction of organic origin Ileus (HCC) Status post total right knee replacement Total knee replacement status The patient is doing well, good pain control with current meds. He denies nausea, chest pain, and shortness of breath today. He is passing gas and urinating without difficulty. He did have a bowel movement yesterday after difficulties with constipation. Lab Results Component Value Date HEMOGLOBIN 13.4 (L) 04/18/2021 Current Vitals: BP 135/101 | Pulse 94 | Temp 98.5 F (36.9 C) | Resp 16 | Ht 1.829 m (6') | Wt (!) 158 kg (348 lb 5.2 oz) | SpO2 90% | BMI 47.24 kg/m Gen: Sitting up in chair, alert and orientated, no apparent distress Incision: no drainage. Dressing clean, dry, and intact. right KNEE: Warm, well perfused. Brisk capillary refill noted. Sensation intact to light touchdistally. Homans negative, no calf pain bilaterally. Compartments soft and compressible. DP and PT pulses are palpable. Motor grossly intact, able to PF/DF ankle and wiggle toes. Some tenderness to palpation, moderate swelling to knee. No erythema around knee or increase in warmth. Lab Results Component Value Date WBC 10.0 06/18/2018 RBC 4.62 06/18/2018 HEMOGLOBIN 13.4 (L) 04/18/2021 HEMATOCRIT 42.0 06/18/2018 MCV 90.9 06/18/2018 MCH 31.0 06/18/2018 MCHC 34.0 06/18/2018 RDW 15.0 08/03/2013 PLTCOUNT 152 06/18/2018 NEUTROPCT 69.9 06/18/2018 LYMPHSPCT 20.6 06/18/2018 MONOSPCT 7.9 06/18/2018 EOSPCT 1.3 06/18/2018 BASOPHILPCT 0.3 06/18/2018 Lab Results Component Value Date INR 1.0 (L) 05/12/2019 Plan: Continue cares, PT/OT. Continue pain management and DVT prophylaxis with Eliquis. Continue weightbearing as tolerated with no kneeling or twisting. Plan for discharge to [facility] rehab Wednesday. Gina Cervantes APRN, [employer]-C Delfino Smith MD - 04/19/2021 1:43 PM CDT Images from the original note were not included. DAILY PROGRESS NOTE Markel Lares is a 71yr old male admitted on 04/17/2021 7:41 AM. Impression / Plan Active Problems: Ileus (HCC) Status post total right knee replacement Resolved Problems: * No resolved hospital problems. * Plan: Status post right total knee arthroplasty 04/17/2021 -Care as per Ortho team. -PT/OT. -Pain management. Constipation, postoperative ileus. -Encourage out of bed to chair, ambulation. -bowel regimen -N.p.o., had a bowel movement passes gas now, advance to clear liquid diet Chronic medical conditions: Coronary artery disease: Aspirin, Lipitor. Hypertension: Continue losartan Prediabetes: Sliding scale insulin Depression: Continue Lexapro Hyperlipidemia: Continue Lipitor Morbid obesity: Weight management as outpatient History of prostate cancer. BPH: Continue Flomax Liver cirrhosis secondary to Hepatitis C infection: Status post Hepatitis C treatment History of gastric ulcers: Continue omeprazole. Interval History HPI No acute events overnight. Patient reports nausea, abdominal distention and pain. Patient was placedn.p.o. abdominal x-ray obtained which revealed distended small bowel loops. Later patient had a small bowel movement, nausea abdominal pain improved, clear liquid diet started. Review of Systems Review of Systems Constitutional: Negative for fever. Respiratory: Negative for cough and shortness of breath. Cardiovascular: Negative for chest pain, palpitations and leg swelling. Gastrointestinal: Positive for abdominal distention, abdominal pain, constipation and nausea. Negative for diarrhea and vomiting. Genitourinary: Negative for dysuria. Musculoskeletal: Positive for arthralgias. Neurological: Negative for dizziness. Physical Exam Vital Signs: Temp: 97.4 F (36.3 C) | BP: 124/73 | Pulse: 66 | Resp: 16 | Pain Ratin (out of 10) | Weight: (!) 158 kg (348 lb 5.2 oz) | O2 Device: Room Air O2 Flow Rate (L/min): 2 l/min | SpO2: 93 % Maximum Temperatures (last 24 hours) Temperature Maximum Max Temp 97.8 F (36.6 C) Intake and Output: 04/18 0700 - 04/19 0659 In: - Out: 200 [Urine:200] Physical Exam Vitals signs and nursing note reviewed. Cardiovascular: Rate and Rhythm: Normal rate and regular rhythm. Pulmonary: Breath sounds: No wheezing or rales. Abdominal: General: There is distension. Tenderness: There is abdominal tenderness. Hernia: A hernia is present. Musculoskeletal: Right lower leg: No edema. Left lower leg: No edema. Neurological: General: No focal deficit present. Mental Status: He is alert. Labs Labs (Last day) 04/19/21 0542 - 04/19/21 0542 CHEMISTRY 04/19/21 0542 CHEMISTRY Glucose 70-100 (mg/dL) 154 Sodium 135-145 (meq/L) 136 Potassium 3.5-5.3 (meq/L) 5.0 Chloride 99-110 (meq/L) 102 CO2 20-29 (meq/L) 26 Anion Gap with K 6-20 (meq/L) 13 BUN 6-22 (mg/dL) 21 Creatinine 0.80-1.30 (mg/dL) 0.79 BUN/Creatinine Ratio 10.0-25.0 26.6 Calcium 8.5-10.5 (mg/dL) 9.3 eGFR >=60 (mL/min/1.73m2) >90 eGFR Non- >=60 (mL/min/1.73m2) >90 04/19/21 1123 - 04/18/21 1712 GLUCOSE POINT OF CARE 04/19/21 1123 04/19/21 0528 04/18/21 2059 04/18/21 1712 GLUCOSE POINT OF CARE Glucose POC 70-99 (mg/dL) 109 140 141 158 04/19/21 0542 - 04/19/21 0542 OTHER 04/19/21 0542 OTHER Age (Years) 71 Medical Decision making Medical Decision Making lir Romo PA - 04/19/2021 11:35 AM CDT ORTHOPAEDIC POST-OPERATIVE PROGRESS NOTE 04/19/2021 POD # 2 Right total knee arthroplasty Patient of Dr. Robles S: Markel Lares is a 71yr male. Patient currently reports of moderate pain. Notes that slowly improving. Currently planning for placement at [facility] on Wednesday. Tolerates diet. Reports that he does have abdominal discomfort due to constipation. Suppository has been tried, no effect at this point. Urinating without difficulty. Denies chest pain, shortness of breath, nausea. Denies numbness and tingling and calf pain. O: Temp Readings from Last 1 Encounters: 04/19/21 97.4 F (36.3 C) BP Readings from Last 1 Encounters: 04/19/21 124/73 Pulse Readings from Last 1 Encounters: 04/19/21 66 Gen: Appears comfortable lying in bed. No acute distress. Alert and oriented. Incision: Prineo in place. NO active drainage. No purulence or fluctuance. Dressing C/D/I. right KNEE: Tender to palpation around the anterior knee. Moderate edema. Compartments are compressible. Sensation is grossly intact to light touch L3- S1. Motor is grossly intact distally, able to DF/PF ankle, flex/extend toes. DP and PT pulses are palpable. No calf tenderness to palpation. Extremity is warm and well perfused. Lab Results Component Value Date WBC 10.0 06/18/2018 RBC 4.62 06/18/2018 HEMOGLOBIN 13.4 (L) 04/18/2021 HEMATOCRIT 42.0 06/18/2018 MCV 90.9 06/18/2018 MCH 31.0 06/18/2018 MCHC 34.0 06/18/2018 RDW 15.0 08/03/2013 PLTCOUNT 152 06/18/2018 NEUTROPCT 69.9 06/18/2018 LYMPHSPCT 20.6 06/18/2018 MONOSPCT 7.9 06/18/2018 EOSPCT 1.3 06/18/2018 BASOPHILPCT 0.3 06/18/2018 Lab Results Component Value Date INR 1.0 (L) 05/12/2019 A/P: 1. s/p Right total knee arthroplasty: DVT prophylaxis: Eliquis 2.5mg 2x/day x 12 days total post-operetive Pain control: Continue current regimen Wound care: Placed mepilex dressing over the incision. Change prior to discharge PT/OT: continue; WBAT with standard knee precautions Activity: as tolerated; Disposition/planning: continue cares; plan for d/c to [facility] on Wednesday Follow up: 2 weeks with [facility] and [address] Robles 2. Opiod induced constipation Will attempt another suppository, if continues to be ineffective then try enema. 3. Acute Blood loss Anemia: Expected Ilir Huntley Pa-C Adela Mendoza APRN-MARIELLE - 04/18/2021 10:39 AM CDT Images from the original note were not included. DAILY PROGRESS NOTE Markel Lares is a 71yr old male admitted on 04/17/2021 7:41 AM. Impression / Plan #CAD -patient not currently taking asa, start 81 mg aspirin daily #Hypertension Restart losartan, hold if systolic less than 100 when necessary hydralazine for systolic blood pressure greater than 180 #Prediabetes Last hemoglobin A1c 6.1 on 03/31/2021 -Fasting glucose was 164 Low-dose sliding scale insulin 3 times a day with meals, blood sugars before meals and at bedtime Hypoglycemia protocol #Status post right total knee arthroplasty Managed by orthopedics Tylenol and tramadol scheduled for pain, oxycodone as needed Eliquis 2.5 mg twice daily for 23 doses for DVT prophylaxis per orthopedic preference Postop hemoglobin 13.4 PT/OT following Case management to assist with discharge planning. patient would like to discharge to short-term intermediate facility versus acute rehab #History of hepatitis C infection #Hyperlipidemia Continue Lipitor GERD Continue omeprazole #BPH Continue Flomax #Mood Disorder Continue lexapro #History of prostate cancer #Hemochromatosis Morbid obesity Body mass index is 47.24 kg/m. Interval History AMANDA Jean Baptiste is postop day 1 from a right total knee arthroplasty. No acute events overnight. His vital signs are stable. Postop hemoglobin 13.4, creatinine 0.91, GFR 83. His pain is controlled on oral pain medication. He is tolerating a regular diet with no nausea or vomiting. He is voiding well, but has not had a bowel movement. He does report passing flatus. He currently denies any chest pain, shortness breath, nausea, headache, and numbness or tingling. He will work with physical and occupational therapy today and plan will be for him to discharge to short-term intermediate facility ifinsurance approves. Case management working on placement. Review of Systems Review of Systems Respiratory: Negative for chest tightness and shortness of breath. Cardiovascular: Negative for chest pain. Gastrointestinal: Negative for nausea and vomiting. Genitourinary: Negative for difficulty urinating. Musculoskeletal: Positive for arthralgias. Neurological: Negative for light-headedness and headaches. Physical Exam Vital Signs: Temp: 98.2 F (36.8 C) | BP: 136/79 | Pulse: 80 | Resp: 16 | Pain Ratin (out of 10) | Weight: (!) 158 kg (348 lb 5.2 oz) | O2 Device: Room Air O2 Flow Rate (L/min): 2 l/min | SpO2: 96 % Maximum Temperatures (last 24 hours) Temperature Maximum Max Temp 98.4 F (36.9 C) Intake and Output: 04/17 0700 - 04/18 0659 In: 3404 [Oral:540] Out: 1200 [Urine:1200] Physical Exam Vitals signs and nursing note reviewed. Constitutional: General: He is not in acute distress. Appearance: He is well-developed. He is obese. He is not diaphoretic. HENT: Head: Normocephalic and atraumatic. Eyes: Conjunctiva/sclera: Conjunctivae normal. Neck: Musculoskeletal: Normal range of motion. Cardiovascular: Rate and Rhythm: Normal rate and regular rhythm. Pulses: Normal pulses. Heart sounds: Normal heart sounds. No murmur. No friction rub. No gallop. Pulmonary: Effort: Pulmonary effort is normal. No respiratory distress. Breath sounds: Normal breath sounds. No wheezing or rales. Abdominal: General: Bowel sounds are normal. There is no distension. Palpations: Abdomen is soft. Tenderness: There is no abdominal tenderness. Musculoskeletal: Right knee: He exhibits decreased range of motion. Skin: General: Skin is warm and dry. Neurological: Mental Status: He is alert and oriented to person, place, and time. Psychiatric: Behavior: Behavior normal. Thought Content: Thought content normal. Judgment: Judgment normal. Labs Labs (Last day) 04/18/21 05 - 04/18/21 05 CBC 04/18/21 05 CBC Hemoglobin 13.5-17.5 (g/dL) 13.4 Medical Decision making MDM Reviewed: previous chart, nursing note and vitals Reviewed previous: labs Interpretation: labs This note was created, at least in part, with the use of [employer] System. Inadvertenttypographical errors, due to software recognition problems, may still exist. Zi Diaz PA - 04/18/2021 9:00 AM CDT ORTHO progress note. Markel Lares is a 71yr old male admitted on 04/17/2021 7:41 AM 1 Day Post-Op Status Post: Procedure(s): RIGHT TOTAL KNEE REPLACEMENT Patient doing ok, complains of mild pain with current meds. The patient denies nausea. Patient states overall he is happy with his progress and treatment and has no concerns. Lab Results Component Value Date HEMOGLOBIN 13.4 (L) 04/18/2021 Current Vital Signs Temp: 98.2 F (36.8 C) BP: 144/87 Pulse: 80 O2 Device: NC - no humidity O2 Flow Rate (L/min): 2 l/min Resp: 16 Pain Ratin (out of 10) Weight: (!) 158 kg (348 lb 5.2 oz) SpO2: 96 % Dist NVI. Dressings Clean & Dry. Homans negative. Compartments soft. EHL/DF/PF intact. X-rays reviewed, no complications seen. Plan: Continue cares, PT. Home when able. Zi Diaz, PA documented in this encounter Consult Notes Adela Hutchins APRN-CNP - 04/17/2021 1:02 PM CDTAssociated Order(s): CONSULT INTERNAL MEDICINE Images from the original note were not included. HOSPITAL CONSULT NOTE Patient ID: Markel Lares is a 71yr male. PCP: Kyle Colon MD Attending Provider: Joaquín Robles MD CONSULT INTERNAL MEDICINE Consult performed by: Adela Hutchins APRN-CNP Consult ordered by: Zi Diaz PA Impression / Plan #CAD -patient not currently taking asa, start 81 mg aspirin daily #Hypertension Hold losartan until a.m. labs when necessary hydralazine for systolic blood pressure greater than 180 #Prediabetes Last hemoglobin A1c 6.1 on 03/31/2021 Fasting glucose in a.m. #Status post right total knee arthroplasty Managed by orthopedics Tylenol and tramadol scheduled for pain, oxycodone as needed Eliquis 2.5 mg twice daily for 24 doses for DVT prophylaxis per orthopedic preference Hemoglobin in a.m., preop hemoglobin 15.5 PT/OT to see Case management to assist with discharge planning. Patient plans to discharge back to his motor home. #History of hepatitis C infection #Hyperlipidemia Continue Lipitor GERD Continue omeprazole #BPH Continue Flomax #Mood Disorder Continue lexapro #History of prostate cancer #Hemochromatosis Morbid obesity Body mass index is 47.24 kg/m. Chief Complaint / HPI HPI Markel Lares is admitted under the orthopedic service status post right total knee arthroplasty on 04/17/2021. Spinal anesthesia with EBL not listed. Internal medicine consultation requested to assist with co-managment postoperatively. Patient was seen at his bedside. He currently denies any p ain, chest pain, shortness of breath, nausea, and headache. He has not voided since surgery. Patient has had right knee pain for years. Preoperatively he rates his pain 8 out of 10. He had difficulty with ambulation and activities of daily living. He started marijuana for pain control priorto surgery. He was using a cane at home. Preop labs reviewed from 03/31/2021: Hemoglobin 15.5, creatinine 0.93, GFR 83 Stress echo reviewed from 04/22/2014: Normal study, EF 77% Medications Current Facility-Administered Medications Medication fentaNYL 100 mcg/2 mL preservative free injection solution 25-100 mcg midazolam (VERSED) injection solution 0.25-2 mg nalOXone (NARCAN) injection solution (vial) 0.4 mg nalOXone (NARCAN) injection solution (vial) 0.2 mg ondansetron (ZOFRAN) injection solution 4 mg sodium chloride 0.9% flush (adult) 10 mL lactated ringers IV solution lidocaine PF (XYLOCAINE-MPF) 1 % preservative free injection solution 0.1- 0.3 mL ropivacaine (NAROPIN) 35 mg, ketorolac (TORADOL) 15 mg, EPINEPHrine (ADRENALIN) 0.25 mg, morphine sulfate (PF) (DURAMORPH) 5 mg in sodium chloride 0.9% 50 mL (multimodal syringe) vancomycin for injection 1000 mg vial no anticoagulants/antiplatelets reminder lactated ringers IV solution fentaNYL 100 mcg/2 mL preservative free injection solution 50 mcg nalOXone (NARCAN) injection solution (vial) 0.4 mg nalOXone (NARCAN) injection solution (vial) 0.2 mg ondansetron (ZOFRAN) injection solution 4 mg And prochlorperazine (COMPAZINE) 10 mg/2 mL injection solution 5 mg And diphenhydrAMINE (BENADRYL) injection solution 12.5 mg albuterol (PROVENTIL) (2.5 mg/3mL) 0.083% inhalation soln 2.5 mg racepinephrine (S-2) 2.25 % inhalation solution 0.5 mL meperidine (DEMEROL) injection solution (conc: 25 mg/mL) 25 mg benzocaine-menthol (CEPACOL w/ BENZOCAINE) lozenge 1 lozenge Facility-Administered Medications Ordered in Other Encounters Medication ePHEDrine injection solution PHENYLephrine (100 mcg/mL) in sodium chloride 0.9% IV prefilled syringe 10 mL midazolam (VERSED) injection solution dexAMETHasone sodium phosphate (DECADRON) (10 mg/mL) injection solution bupivacaine 0.75% in dextrose 8.25% (MARCAINE SPINAL;SENSORCAINE-MPF SPINAL) intrathecal injection propofol (DIPRIVAN) 10 mg/mL IV emulsion (anesthesia lidocaine PF (XYLOCAINE-MPF) 2 % injection solution Allergies Allergies Allergen Reactions Codeine Other (Specify in Comments) Constipation Medical / Surgical / Family History Past Medical History: Diagnosis Date Allergy Anxiety and depression BPH (benign prostatic hypertrophy) Degenerative disc disease, lumbar Depression ED (erectile dysfunction) Hemochromatosis Hepatitis C history of HTN (hypertension) Hyperlipidemia Knee pain Morbid obesity (HCC) Prostate cancer (HCC) Radiation/lupron Past Surgical History: Procedure Laterality Date APPENDECTOMY COLONOSCOPY 07/06/2014 Procedure: COLONOSCOPY;; Surgeon: Yun Gray MD OPEN REDUCTION Right 03/27/2015 Procedure: RIGHT PROXIMAL HUMERUS FRACTURE OPEN REDUCTION INTERNAL FIXATION;; Surgeon: Joaquín Robles MD UPPER ENDOSCOPY 07/06/2014 Procedure: UPPER ENDOSCOPY;; Surgeon: Yun Gray MD UPPER ENDOSCOPY N/A 06/06/2018 Procedure: UPPER ENDOSCOPY;; Surgeon: Mo Higginbotham MD VASECTOMY Family History Problem Relation Age of Onset Colorectal Cancer Father Prostate Cancer Father Bone Cancer Father Bladder Cancer Neg Hx Kidney Cancer Neg Hx Testicular Cancer Neg Hx Social History Social History Tobacco Use Smoking status: Never Smoker Smokeless tobacco: Never Used Substance Use Topics Alcohol use: Yes Frequency: Monthly or less Drug use: Yes Types: Marijuana Comment: Medical marijuana gummies. , 'Hash' - couple weeks ago. ROS Review of Systems Constitutional: Negative. HENT: Negative. Eyes: Negative. Respiratory: Negative for chest tightness and shortness of breath. Cardiovascular: Negative for chest pain. Gastrointestinal: Negative for nausea and vomiting. Genitourinary: Positive for difficulty urinating. Musculoskeletal: Positive for arthralgias. Skin: Negative. Neurological: Negative for headaches. Hematological: Negative. Psychiatric/Behavioral: Negative. Physical Exam BP 142/71 | Pulse 67 | Temp 98.2 F (36.8 C) | Resp 14 | Ht 1.829 m (6') | Wt (!) 158 kg (348 lb 5.2 oz) | SpO2 93% | BMI 47.24 kg/m Physical Exam Vitals signs and nursing note reviewed. Constitutional: General: He is not in acute distress. Appearance: He is well-developed. He is obese. He is not diaphoretic. HENT: Head: Normocephalic and atraumatic. Eyes: Conjunctiva/sclera: Conjunctivae normal. Neck: Musculoskeletal: Normal range of motion. Cardiovascular: Rate and Rhythm: Normal rate and regular rhythm. Pulses: Normal pulses. Heart sounds: Normal heart sounds. No murmur. No friction rub. No gallop. Pulmonary: Effort: Pulmonary effort is normal. No respiratory distress. Breath sounds: Normal breath sounds. No wheezing or rales. Abdominal: General: Bowel sounds are normal. There is no distension. Palpations: Abdomen is soft. Tenderness: There is no abdominal tenderness. Musculoskeletal: Right knee: He exhibits decreased range of motion. Skin: General: Skin is warm and dry. Neurological: Mental Status: He is alert and oriented to person, place, and time. Psychiatric: Behavior: Behavior normal. Thought Content: Thought content normal. Judgment: Judgment normal. Labs Labs (Last day) No results found within the past day. Medical Decision Making MDM Reviewed: previous chart, nursing note and vitals Reviewed previous: labs (echo) This note was created, at least in part, with the use of [employer] Voice Dictation System. Inadvertenttypographical errors, due to software recognition problems, may still exist. documented in this encounter Miscellaneous Notes Clinical Team - Nieves Marrero RN - 04/25/2021 10:39 AM CDT Patient discharged to [facility]ing Bed via wheelchair and transport staff. The patient's sonis transporting the patient to the facility. Dressing change completed to right knee with occlusive dressing. Discharge package sent with patient and report called to nurse Benjamin at [facility]. Questions answered. Personal belongings sent home with patient. are Planning - Nieves Marrero RN - 04/25/2021 9:38 AM CDT Problem: ACUTE PAIN Goal: CLIENT SATISFACTION: PAIN MANAGEMENT Description: DEFINITION: Extent of positive perception of nursing care to relieve pain. 1=Not at all satisfied, 2=Somewhat satisfied, 3=Moderately satisfied, 4=Very satisfied, 5=Completely satisfied. Outcome: NOC Rating 3 Flowsheets (Taken 04/25/2021 0956) Initial Score: 2 Target Score: 4 Plan of care reviewed with: Patient Patient specific goal for the day: Patient's pain will be managed with both pharmacologic and non-pharmacologic options Patient specific goal for the stay: Patient's pain will be managed to keep pain less than 4/10 Achieve goal for stay: By discharge Patient Progress: Patient verbalizing pain to right knee this shift rating it at 6/10. Ice pack applied, scheduled Tylenol administered. RLE elevated and pillow support in place. Will continue to monitor and assess pain. Problem: RISK FOR FALLS Goal: FALL PREVENTION BEHAVIOR Description: DEFINITION: Personal or family hospice home care coordinator actions to minimize risk factors that might precipitate falls in the personal environment. 1=Never demonstrated, 2=Rarely demonstrated, 3=Sometimes demonstrated, 4=Often demonstrated, 5=Consistently demonstrated. Outcome: NOC Rating 3 Flowsheets (Taken 04/25/2021 0933) Initial Score: 2 Target Score: 4 Plan of care reviewed with: Patient Patient specific goal for the day: Fall/safety precautions will be implemented to prevent falls Patient specific goal for the stay: Patient will not fall during this shift Achieve goal for stay: By discharge Patient Progress: Patient alert and oriented and calling appropriately. Patient ambulates with assist of 1, FWW, GB. Bed in lowest position, call light within reach, care rounding ongoing. Will continue to monitor and assess fall risk. hysical Therapy - Mary Galindo SPT - 04/25/2021 9:25 AM CDT Physical Therapy Orthopedic TKA Discharge Note Date: 04/25/2021 Subjective: Alert and Oriented. Patient feels ready to discharge to [facility] bed today. Objective: Gait belt donned for all out of bed activities. Lab Results Component Value Date HEMOGLOBIN 12.8 (L) 04/25/2021 Supine to/from sit: N/t. Sit to/from stand: Patient goes sit to/from stand to/from recliner with BFWW and contact to minimalassistance. Sitting Balance: Fair. Standing Balance: Fair with BFWW and CGA. Gait: Patient ambulates 185 ft x 2 with BFWW and CGA with a steady semi reciprocating gait pattern and recliner follow. Upon completion of session, patient to return to recliner with cold packs applied to anterior-posterior aspect of right knee. Stairs: N/t. ROM: AAROM - right knee - 8 - 80 degrees Exercises: Completes 10 repetitions of exercise on surgical LE including heels slides, seated LAQ, and knee extension and flexion stretching with 30 second holds x 2. Pain: (0-10 scale) At rest: 2 With Activity: 2 Education: Completed for precautions, use of equipment, home exercise activity and mobility progression. Written home exercise program provided. Patient and family verbalizes understanding of home exercise program. Equipment: Patient indicates all needed assistive devices obtained prior to hospitalization or will obtain on their own. Assessment: Patient demonstrates safety with mobility, applying precautions as indicated. Goals: All goals achieved as identified in initial evaluation. Plan: Patient will be discharged to [facility] swing bed. Time Treatment Occurred: 8:13 am Gait trainin minutes Therapeutic Exercise: 17 minutes Therapeutic Activity: 0 minutes TOTAL TIMED CODES: 32 minutes TREATMENT TOTAL TIME: 32 minutes are Planning - Vidal Robison RN - 04/25/2021 7:32 AM CDT Problem: ACUTE PAIN Goal: CLIENT SATISFACTION: PAIN MANAGEMENT Description: DEFINITION: Extent of positive perception of nursing care to relieve pain. 1=Not at all satisfied, 2=Somewhat satisfied, 3=Moderately satisfied, 4=Very satisfied, 5=Completely satisfied. Outcome: NOC Rating 2 Flowsheets (Taken 04/25/2021 07) Patient Progress: minimal rt knee discomfort voiced Problem: IMPAIRED PHYSICAL MOBILITY Goal: MOBILITY Description: DEFINITION: Ability to move purposefully in own environment independently with or without assistive device. 1=Severely compromised / Total assistance: Performs less than 25% of activity; 2=Substantially compromised / Maximal assistance: Performs 25-49% of activity; 3=Moderately compromised / Moderate assistance: Performs 50-74% of activity; 4=Mildly compromised / Modified independence: Needs assistive device, supervision, minimal contact,or safety is a concern; 5=Not compromised / Complete independence. Flowsheets (Taken 04/25/2021 07) Patient Progress: up in chair for meals,walk with staff hysical Therapy - Mary Galindo SPT - 04/24/2021 2:55 PM CDT Physical Therapy Orthopedic TKA Treatment Note Date: 04/24/2021 Assessment/Recommendations: Patient tolerates exercise and ambulation well. Patient ambulated 185 ftx 2 with BFWW and CGA. Plan to discharge to [facility] swing bed tomorrow if medically stable and bed available. Subjective: Alert and Oriented. Patient mentions right knee loosened up after completion of exercise and ambulation. Objective: Gait belt donned for all out of bed activities. Lab Results Component Value Date HEMOGLOBIN 13.4 (L) 04/24/2021 Supine to/from sit: Patient goes supine to sit with minimal assistance. Sit to/from stand: Patient goes sit to stand from raised bed with BFWW and CGA. Patient goes stand to sit to recliner with BFWW and CGA. Sitting Balance: Fair. Standing Balance: Fair with BFWW and CGA. Gait: Patient ambulates 185 ft x 2 with BFWW and CGA with a slow, steady semi reciprocating gait pattern with a recliner follow. At completion of session, patient returned to recliner with cold packs to anterior-posterior aspect of right knee. Stairs: N/t. ROM: N/t. Exercises: Completes 10 reps of exercise on surgical LE which includes ankle pumps, quad sets and hamstring sets with good quality strength, and supine heel slides, SAQ, and SLR with minimal assistance. Pain: (0-10 scale) At rest: 0 With Activity: 0 Education: Reviewed precautions, exercise progression, transfer techniques, gait and mobility progression. Assessment: Patient tolerated treatment well. Anticipate that patient will be ready to discharge to [facility] swing bed in [place] tomorrow. Plan: Continue with plan of care. Time Treatment Occurred: 14:15 Gait: 20 minutes Therapeutic Exercise: 15 minutes Therapeutic Activity: 0 minutes TOTAL TIMED CODES: 35 minutes TREATMENT TOTAL TIME: 35 minutes are Planning - Marley Olivares LPN - 04/24/2021 2:23 PM CDT Problem: ACUTE PAIN Goal: CLIENT SATISFACTION: PAIN MANAGEMENT Description: DEFINITION: Extent of positive perception of nursing care to relieve pain. 1=Not at all satisfied, 2=Somewhat satisfied, 3=Moderately satisfied, 4=Very satisfied, 5=Completely satisfied. Flowsheets (Taken 04/24/2021 0944) Plan of care reviewed with: Patient Patient specific goal for the day: manage pain Patient specific goal for the stay: Patient's pain will be controlled with oral pain medications during stay Patient Progress: minimal rt knee discomfort voiced Problem: IMPAIRED PHYSICAL MOBILITY Goal: MOBILITY Description: DEFINITION: Ability to move purposefully in own environment independently with or without assistive device. 1=Severely compromised / Total assistance: Performs less than 25% of activity; 2=Substantially compromised / Maximal assistance: Performs 25-49% of activity; 3=Moderately compromised / Moderate assistance: Performs 50-74% of activity; 4=Mildly compromised / Modified independence: Needs assistive device, supervision, minimal contact,or safety is a concern; 5=Not compromised / Complete independence. Flowsheets (Taken 04/24/2021 0944) Plan of care reviewed with: Patient Patient specific goal for the day: work with therapy, increase tolerance Patient specific goal for the stay: safe mobility Patient Progress: up in chair for meals,walk with staff Problem: IMBALANCED NUTRITION: LESS THAN BODY REQUIREMENTS Goal: GASTROINTESTINAL FUNCTION Description: DEFINITION: Ability of the gastrointestinal tract to ingest and digest food products, absorb nutrients, and eliminate waste. 1=Severely compromised, 2=Substantially compromised, 3=Moderately compromised, 4=Mildly compromised, 5=Not compromised. 04/24/2021 1423 by Marley Olivares LPN Flowsheets (Taken 04/24/2021 1423) Patient Progress: one loose stool eary am this shift 04/24/2021 0945 by Marley Olivares LPN Flowsheets (Taken 04/24/2021 0945) Patient specific goal for the day: Patient will have formed stools Patient specific goal for the stay: Patient will return to baseline bowel status Achieve goal for stay: By discharge Patient Progress: abd distended,pt had large liquid loose stool will continue to monotor Problem: RISK FOR FALLS Goal: FALL PREVENTION BEHAVIOR Description: DEFINITION: Personal or family hospice home care coordinator actions to minimize risk factors that might precipitate falls in the personal environment. 1=Never demonstrated, 2=Rarely demonstrated, 3=Sometimes demonstrated, 4=Often demonstrated, 5=Consistently demonstrated. Flowsheets (Taken 04/24/2021 0947) Plan of care reviewed with: Patient Patient specific goal for the day: Pt will call for assistance Patient specific goal for the stay: No falls Achieve goal for stay: By discharge Patient Progress: using call light appropriately hysical Therapy - Mary Galindo SPT - 04/24/2021 10:32 AM CDT Physical Therapy Orthopedic TKA Treatment Note Date: 04/24/2021 Assessment/Recommendations: Patient tolerated exercise, ambulation and stairs well. Patient ambulated 225ft x1 and 140ft x 1 with BFWW and CGA. Patient ascended/descended 10 stairs with BFWW and CGA. Patient ready to be discharged to [facility] swing bed when available. Subjective: Alert and Oriented. Patient reports feeling less stiffness in his right knee after completing exercises and ambulating. Objective: Gait belt donned for all out of bed activities. Lab Results Component Value Date HEMOGLOBIN 13.4 (L) 04/24/2021 Supine to/from sit: N/t. Sit to/from stand: Patient goes sit to/from stand with BFWW and CGA. Sitting Balance: Fair. Standing Balance: Fair with BFWW and CGA. Gait: Patient ambulates 225ft x 1 and 140ft x1 with BFWW and CGA with a steady semi reciprocating gait pattern and recliner follow. Upon completion of session, patient returned to recliner with cold packs applied to anterior-posterior aspect of right knee. Stairs: Patient ascends/descends 10 stairs with BFWW and CGA with a step to pattern. ROM: AAROM - right knee - 8 - 83 degrees Exercises: Completes 10 reps of exercise on surgical LE which includes heel slides and LAQ with minimal to no assistance and right knee flexion and extension stretches 2 x 30 seconds each with minimal to no assistance. Pain: (0-10 scale) At rest: 0 With Activity: 0 Education: Reviewed precautions, exercise progression, transfer techniques, gait and mobility progression. Assessment: Patient tolerated treatment well. Anticipate that patient will be ready to go [facility] bed when medically stable and bed available. Plan: Continue with plan of care. Time Treatment Occurred: 0945am Gait: 15 minutes Therapeutic Exercise: 15 minutes Therapeutic Activity: 10 minutes TOTAL TIMED CODES: 40 minutes TREATMENT TOTAL TIME: 40 minutes ase Jay - Ren Tolbert (MARLA Cobb - 04/24/2021 9:01 AM CDT CASE MANAGEMENT / SOCIAL SERVICE FINAL TRANSITION PLAN TRANSITION DATE: 04/25/21 TRANSITION TIME: 1000 INTENDED PAYER SOURCE FOR AGENCY: Private Insurance TRANSITION DESTINATION: [place] [facility] [id number] [place] [phone] please complete orders per discharge to SNF protocol [facility] please fax orders/meds/transfer forms per discharge to SNF protocol Nursing please call for nurse to nurse report Nurse # [phone], DOES ACCEPTING FACILITY REQUIRE COVID TESTING BEFORE DISCHARGE: Needs one negative test within 24-48 hours TRANSITION TRANSPORTATION: Family Car TRANSPORTATION PAYMENT: Not applicable TRANSITION CHOICES OFFERED: Acute Rehab Home Health: Bath Aid, Home Safety Evaluation, Nurse, Occupational Therapy and Physical Therapy Home: Family/Friend Support [facility] Facility Swing Bed DOES THE PATIENT HAVE A PRIMARY CARE PHYSICIAN? Yes Kyle Colon MD PATIENT / SUBSTITUTE DECISION MAKER GOAL UPON TRANSITION: First Choice: Acute Rehab [facility] inpatient rehab had approved admission but [employer] insurance denied the admission. PATIENT CHOICE EDUCATION: Not applicable MEDICARE 3 IP MIDNIGHT CRITERIA MET: Yes: 5 days RESOURCE(S) PROVIDED: NA DOES PATIENT HAVE CLOTHING TO WEAR AT DISCHARGE? Yes ANTICIPATED MODE OF TRANSPORT TO AND FROM FOLLOW UP APPOINTMENTS: As arranged by accepting facility Family Car VERIFIED CORRECT PHARMACY IS ENTERED FOR DISCHARGE: Yes - Pharmacy: they have their own pharmacy Use "65 button" METHOD OF PRESCRIBING MEDICATIONS: Medications to be E-prescribed to above pharmacy TRANSITION ROUNDING COMPLETED WITH THE FOLLOWING: service counselorkeeper helper Pharmacist Physical Therapist COMMENTS / PATIENT AND FAMILY RESPONSE TO PLAN: Received call from Doe cerna nurse caser up from [employer] Called back and left update that patient was still here and that We had tried to get approval for acute rehab and were denied and Were now trying to get approval for swing bed in [place] Asked for assistance with this prior auth SPECIAL TRANSITION DAY INSTRUCTIONS TO NURSE / MD: [place] Swing bed [facility]ing Bed [address],[id number] [place] [phone] please complete orders per discharge to SNF protocol [facility] please fax orders/meds/transfer forms per discharge to SNF protocol Nursing please call for nurse to nurse report Nurse # [phone], CURRENT READMISSION RISK SCORE / HANDOFF: Predictive Risk Score Risk of Unplanned Readmission: 16.4 Handoff given: N/A SIGNED: Mary Tolbert RN ([place]) [facility] [id number] [email or web address] Care Planning - Vidal Robison RN - 04/24/2021 7:44 AM CDT Problem: ACUTE PAIN Goal: CLIENT SATISFACTION: PAIN MANAGEMENT Description: DEFINITION: Extent of positive perception of nursing care to relieve pain. 1=Not at all satisfied, 2=Somewhat satisfied, 3=Moderately satisfied, 4=Very satisfied, 5=Completely satisfied. Flowsheets (Taken 04/24/2021 0743) Patient Progress: Patient has rated pain this shift minimal at 2/10. scheduled medications administered as ordered, see MAR. Problem: IMPAIRED PHYSICAL MOBILITY Goal: MOBILITY Description: DEFINITION: Ability to move purposefully in own environment independently with or without assistive device. 1=Severely compromised / Total assistance: Performs less than 25% of activity; 2=Substantially compromised / Maximal assistance: Performs 25-49% of activity; 3=Moderately compromised / Moderate assistance: Performs 50-74% of activity; 4=Mildly compromised / Modified independence: Needs assistive device, supervision, minimal contact,or safety is a concern; 5=Not compromised / Complete independence. Outcome: NOC Rating 3 Flowsheets (Taken 04/24/2021 0743) Patient Progress: up with gait belt walker and guidance of one grabiel well are Planning - [place] Hall RN - 04/23/2021 5:34 PM CDT Problem: ACUTE PAIN Goal: CLIENT SATISFACTION: PAIN MANAGEMENT Description: DEFINITION: Extent of positive perception of nursing care to relieve pain. 1=Not at all satisfied, 2=Somewhat satisfied, 3=Moderately satisfied, 4=Very satisfied, 5=Completely satisfied. Flowsheets (Taken 04/23/2021 9276) Initial Score: 4 Target Score: 4 Plan of care reviewed with: Patient Patient specific goal for the day: Patient will be able to complete ADLs and transfers with controlled pain Patient specific goal for the stay: Patient's pain will be controlled with oral pain medications during stay Achieve goal for stay: By discharge Patient Progress: Patient has rated pain this shift minimal at 2/10. scheduled medications administered as ordered, see MAR. Problem: IMBALANCED NUTRITION: LESS THAN BODY REQUIREMENTS Goal: GASTROINTESTINAL FUNCTION Description: DEFINITION: Ability of the gastrointestinal tract to ingest and digest food products, absorb nutrients, and eliminate waste. 1=Severely compromised, 2=Substantially compromised, 3=Moderately compromised, 4=Mildly compromised, 5=Not compromised. Flowsheets (Taken 04/23/2021 1731) Initial Score: 3 Target Score: 5 Plan of care reviewed with: Patient Patient specific goal for the day: Patient will have formed stools Patient specific goal for the stay: Patient will return to baseline bowel status Achieve goal for stay: By discharge Patient Progress: Patient has had three BMs today, see flowsheets. Mostly fluffy. Bowel sounds present and very active, abdomen slightly distended and firm. will monitor. hysical Therapy - Mary Galindo SPT - 04/23/2021 4:21 PM CDT Physical Therapy Orthopedic TKA Treatment Note Date: 04/23/2021 Assessment/Recommendations: Patient tolerates exercises and ambulating well. Patient ambulates significantly farther today, 230ft x1 with BFWW, CGA and recliner follow. Awaiting bed availability for discharge to SNF. Subjective: Alert and Oriented. Patient's daughter present from [place] and encouraging patient toparticipate. Patient's right knee is sore and stiff but no pain. Objective: Gait belt donned for all out of bed activities. Lab Results Component Value Date HEMOGLOBIN 12.0 (L) 04/23/2021 Supine to/from sit: Patient goes supine to sit with SBA. Sit to/from stand: Patient goes sit to stand from raised bed and stand to sit to recliner with FWW and CGA. Sitting Balance: Fair. Standing Balance: Fair with BFWW and CGA. Gait: Patient ambulates 230ft with BFWW and CGA with slow, steady semi reciprocating to reciprocating gait pattern and recliner follow. Patient returned to recliner with cold pack applied to anterior-posterior aspect of right knee. Stairs: N/t. ROM: N/t. Exercises: Completes 10 reps of exercise on surgical LE which includes ankle pumps, quad sets and hamstring sets with good quality strength, and supine heel slides, SAQ, and SLR with sheet and minimal to no assistance. Pain: (0-10 scale) At rest: 0 With Activity: 0 Education: Reviewed precautions, exercise progression, transfer techniques, gait and mobility progression. Assessment: Patient tolerated treatment well. Anticipate that patient will be ready to go when medically stable and bed ready to SNF for discharge. Plan: Continue with plan of care. Time Treatment Occurred: 3:53 pm Gait: 12 minutes Therapeutic Exercise: 15 minutes Therapeutic Activity: 0 minutes TOTAL TIMED CODES: 27 minutes TREATMENT TOTAL TIME: 27 minutes are Planning - Marley Olivares LPN - 04/23/2021 2:41 PM CDT Problem: ACUTE PAIN Goal: CLIENT SATISFACTION: PAIN MANAGEMENT Description: DEFINITION: Extent of positive perception of nursing care to relieve pain. 1=Not at all satisfied, 2=Somewhat satisfied, 3=Moderately satisfied, 4=Very satisfied, 5=Completely satisfied. Flowsheets (Taken 04/23/2021 0976) Plan of care reviewed with: Patient Patient specific goal for the day: manage pain Patient specific goal for the stay: Patient will maintain a tolerable pain level with oral pain medications. Achieve goal for stay: By discharge Patient Progress: voices stiffness rt knee, chronic back pain lidocaine patches applied to lower back Problem: IMPAIRED PHYSICAL MOBILITY Goal: MOBILITY Description: DEFINITION: Ability to move purposefully in own environment independently with or without assistive device. 1=Severely compromised / Total assistance: Performs less than 25% of activity; 2=Substantially compromised / Maximal assistance: Performs 25-49% of activity; 3=Moderately compromised / Moderate assistance: Performs 50-74% of activity; 4=Mildly compromised / Modified independence: Needs assistive device, supervision, minimal contact,or safety is a concern; 5=Not compromised / Complete independence. Flowsheets (Taken 04/23/2021 0910) Plan of care reviewed with: Patient Patient specific goal for the day: work with therapy Patient specific goal for the stay: safe mobility Achieve goal for stay: By discharge Patient Progress: up with gait belt walker and guidance of one grabiel well Problem: IMBALANCED NUTRITION: LESS THAN BODY REQUIREMENTS Goal: GASTROINTESTINAL FUNCTION Description: DEFINITION: Ability of the gastrointestinal tract to ingest and digest food products, absorb nutrients, and eliminate waste. 1=Severely compromised, 2=Substantially compromised, 3=Moderately compromised, 4=Mildly compromised, 5=Not compromised. Flowsheets (Taken 04/23/2021 0912) Plan of care reviewed with: Patient Patient specific goal for the day: Resolve ileus Patient specific goal for the stay: Return to baseline Goal: GASTROINTESTINAL FUNCTION Description: DEFINITION: Ability of the gastrointestinal tract to ingest and digest food products, absorb nutrients, and eliminate waste. 1=Severely compromised, 2=Substantially compromised, 3=Moderately compromised, 4=Mildly compromised, 5=Not compromised. Flowsheets (Taken 04/23/2021 1440) Patient Progress: no stools this shift advanced to diabetic diet Problem: IMBALANCED NUTRITION: LESS THAN BODY REQUIREMENTS Goal: GASTROINTESTINAL FUNCTION Description: DEFINITION: Ability of the gastrointestinal tract to ingest and digest food products, absorb nutrients, and eliminate waste. 1=Severely compromised, 2=Substantially compromised, 3=Moderately compromised, 4=Mildly compromised, 5=Not compromised. Flowsheets (Taken 04/23/2021 1440) Patient Progress: no stools this shift advanced to diabetic diet Occupational Therapy - Preeti Wilcox OTR/Michaela - 04/23/2021 2:22 PM CDT Occupational Therapy Orthopedic Progress Note Treatment Today's Treatment Self care/home management: 33 minutes Start Time: 1050 Total for time-based codes: 33 minutes Total treatment time: 33 minutes Impression/Plan: See daily M-F for ADL/transfer training/education, assess adpative equipment needs. Recommend: Short term SNF Pain: Pain at rest: 3/10 Pain during activity: 3/10 Location: R knee Treatment provided: Patient was brought to the OT department via w/c and was educated in car & walk in shower transfers to simulate home setting. Patient completing sit<>stand from w/c with min cues and min A for each stand. Patient completed car transfer with min A using FWW, needing extra time/effort to manage RLE in/out of the car. Patient completed walk in shower transfer with CGA usingshower chair and verbal cues to slow down when completing transfers. Pt completing toileting while standing at toilet with CGA prior to returning to bed. He was mod A with lifting RLE into bed. At thistime, patient would not be safe to return home alone. Recommend for patient to continue with skilled therapies at a low intensity setting upon medical stability. Recommend w/c transport for safety. Adaptive Equipment Recommended: Grab bars shower To further assess. Assessment: Patient showing a decrease in ADL/transfer performance and will benefit from continued OT. Goals by discharge: Patient will be independent with bed, chair, toilet, car transfers with adaptive equipment as needed. Patient will be independent with tub/shower transfer with adaptive equipment as needed. Patient will be independent with self care skills with adaptive equipment as needed. Patient will be independent Pt progressing towards goals Therapist pager #: [phone] Physical Therapy - Mary Galindo SPT - 04/23/2021 10:03 AM CDT Physical Therapy Orthopedic TKA Treatment Note Date: 04/23/2021 Assessment/Recommendations: Patient agreeable and tolerates exercise and walking well. Patient up with 1 and ambulates 100-110 ft x 2 with BFWW and CGA with a recliner follow. Recommend SNF on discharge. Subjective: Alert and Oriented. Patient presents with no confusion. Patient reports stiffness and soreness in his right knee but was eager to participate in therapy. Objective: Gait belt donned for all out of bed activities. Lab Results Component Value Date HEMOGLOBIN 12.0 (L) 04/23/2021 Supine to/from sit: Goes supine to/from sit with minimal assist of 1. Sit to/from stand: Goes sit to stand from recliner with BFWW and minimal to contact assist. Goes stand to sit on raised bed with BFWW and minimal to contact assist. Sitting Balance: Fair. Standing Balance: Fair with BFWW and CGA. Gait: Patient ambulates 100ft x 1 and 110ft x1 with BFWW and CGA with a slow, steady reciprocating gait pattern and close follow with recliner. On completion of treatment, patient returned to bed withcold packs applied to anterior- posterior aspect of right knee. Stairs: N/t. ROM: AAROM right knee - 9-96 degrees. Exercises: Completes 10 reps of exercise on surgical LE which includes ankle pumps, quad sets and hamstring sets with fair quality strength, and supine heel slides, SAQ, and SLR with sheet/minimal to contact assistance. Pain: (0-10 scale) At rest: 0 With Activity: 0 Education: Reviewed precautions, exercise progression, transfer techniques, gait and mobility progression. Assessment: Patient tolerated treatment well. Anticipate that patient will be ready to go SNF when medically stable and bed available. Plan: Continue with plan of care. Time Treatment Occurred: 09:10am Gait: 15 minutes Therapeutic Exercise: 15 minutes Therapeutic Activity: 10 minutes TOTAL TIMED CODES: 40 minutes TREATMENT TOTAL TIME: 40 minutes linical Team - Marley Olivares LPN - 04/23/2021 9:07 AM CDT Rt outer and inner thigh dark purple ase Mgmt - Ren Tolbert RN (Dee) - 04/23/2021 9:01 AM CDT CASE MANAGEMENT / SOCIAL SERVICE TRANSITION PLAN - PROGRESS NOTE PLAN: [facility] has accepted him as a patient for admission Wednesday They have submitted info to [facility] for approval to TCU/SWB Insurance [facility] has denied admission to [facility] rehab Will Continue to Follow for Support and Progression Towards Final Transition Plan Case Management will continue to collaborate with the patient, family, and care team to ensure a safe, timely, and effective transition plan goal is TCU/SWB to continue therapy prior to discharge home BARRIERS TO TRANSITION: Awaiting Therapy Recommendations Discharge Needs to be Determined Medical observation of lab work and vital signs DOES ACCEPTING FACILITY REQUIRE COVID TESTING BEFORE DISCHARGE: N/A COMMENTS / PATIENT AND FAMILY RESPONSE TO PLAN: Patient's chart reviewed. Patient reviewed in transition rounds today with Charge Nurse,pharmacist, physical therapy, andRN/CUT TOBACCO BULKER Pan Devulcanizer. Had long discussion with Patient and daughter Fiona and placido of insurance process He is also aware that [employer] may deny the stayif they don't feel he meets criteria. IS PATIENT'S ADMISSION ASSOCIATED WITH TIA, ISCHEMIC, OR HEMORRHAGIC STROKE?: No PATIENT / SUBSTITUTE DECISION MAKER GOAL UPON TRANSITION: First Choice[facility] Swing Bed ANTICIPATED NEEDS UPON TRANSITION: [facility] RESOURCE(S) PROVIDED: DANDRE WELSH Acute rehab navigatorDiane visitedwith patient on Wednesday Patient accepted their bed offer Insurance approval was started through [facility] on Wednesday ANTICIPATED MODE OF TRANSPORT UPON TRANSITION: Stretcher transport--[facility] or [facility] As arranged by accepting facility [facility] ANTICIPATED MODE OF TRANSPORT TO AND FROM FOLLOW UP APPOINTMENTS: As arranged by accepting facility [facility] VERIFIED CORRECT PHARMACY IS ENTERED FOR DISCHARGE: No Depends on disposition TRANSITION ROUNDING COMPLETED WITH THE FOLLOWING: service counselorkeeper helper Pharmacist Physical Therapist SIGNED: Mary Tolbert RN (Dorea) [facility] [id number] [email or web address] are Planning - Kassidy Crane RN - 04/23/2021 4:06 AM CDT Problem: ACUTE PAIN Goal: CLIENT SATISFACTION: PAIN MANAGEMENT Description: DEFINITION: Extent of positive perception of nursing care to relieve pain. 1=Not at all satisfied, 2=Somewhat satisfied, 3=Moderately satisfied, 4=Very satisfied, 5=Completely satisfied. Flowsheets (Taken 04/23/2021 0358) Patient Progress: pt has denied pain to knee & back this shift. has hx of chronic low back pain,using lidoderm patches Problem: IMPAIRED PHYSICAL MOBILITY Goal: MOBILITY Description: DEFINITION: Ability to move purposefully in own environment independently with or without assistive device. 1=Severely compromised / Total assistance: Performs less than 25% of activity; 2=Substantially compromised / Maximal assistance: Performs 25-49% of activity; 3=Moderately compromised / Moderate assistance: Performs 50-74% of activity; 4=Mildly compromised / Modified independence: Needs assistive device, supervision, minimal contact,or safety is a concern; 5=Not compromised / Complete independence. Flowsheets (Taken 04/23/2021 0358) Patient Progress: pt is up with 1 assist using gait belt & walker. pt walked to & from bathroom this shift. gait steady Problem: IMBALANCED NUTRITION: LESS THAN BODY REQUIREMENTS Goal: GASTROINTESTINAL FUNCTION Description: DEFINITION: Ability of the gastrointestinal tract to ingest and digest food products, absorb nutrients, and eliminate waste. 1=Severely compromised, 2=Substantially compromised, 3=Moderately compromised, 4=Mildly compromised, 5=Not compromised. Flowsheets (Taken 04/23/2021 0400) Initial Score: 2 Target Score: 4 Plan of care reviewed with: Patient Patient specific goal for the day: Resolve ileus Patient specific goal for the stay: Return to baseline Achieve goal for stay: By discharge Patient Progress: pt is on a full liquid diet for now due to ileus. pt has had > 20 bowel movements in past few days due to laxatives. stools very liquidy & has some incontinence. denies nausea at present. abdomen remains slightly firm & rounded, with active bowel sounds. pt tolerating fullliquid diet. Problem: RISK FOR FALLS Goal: FALL PREVENTION BEHAVIOR Description: DEFINITION: Personal or family hospice home care coordinator actions to minimize risk factors that might precipitate falls in the personal environment. 1=Never demonstrated, 2=Rarely demonstrated, 3=Sometimes demonstrated, 4=Often demonstrated, 5=Consistently demonstrated. Flowsheets (Taken 04/23/2021399) Initial Score: 3 Target Score: 4 Plan of care reviewed with: Patient Patient specific goal for the day: Pt will call for assistance Patient specific goal for the stay: No falls Achieve goal for stay: By discharge Patient Progress: pt had post op delirium which has now resolved. has bed & chair alarms activated currently. pt is using call light approprietly & is A&O x4. will continue to monitor linical Team - Melyssa Louis RN - 04/22/2021 6:[address] Muller notified regarding pt has approximately 20 loose stools since yesterday and pt has no control of his bowel. C-diff negative. Order received to hold Lactulose and give Imodium. Will monitor. are Planning - Larry Vázquez RN - 04/22/2021 5:44 PM CDT Problem: ACUTE PAIN Goal: CLIENT SATISFACTION: PAIN MANAGEMENT Description: DEFINITION: Extent of positive perception of nursing care to relieve pain. 1=Not at all satisfied, 2=Somewhat satisfied, 3=Moderately satisfied, 4=Very satisfied, 5=Completely satisfied. Flowsheets (Taken 04/22/20211741) Patient Progress: Rates pain 0-2/10, mainly in lower back. Scheduled medications given, see MAR. Problem: IMPAIRED PHYSICAL MOBILITY Goal: MOBILITY Description: DEFINITION: Ability to move purposefully in own environment independently with or without assistive device. 1=Severely compromised / Total assistance: Performs less than 25% of activity; 2=Substantially compromised / Maximal assistance: Performs 25-49% of activity; 3=Moderately compromised / Moderate assistance: Performs 50-74% of activity; 4=Mildly compromised / Modified independence: Needs assistive device, supervision, minimal contact,or safety is a concern; 5=Not compromised / Complete independence. Flowsheets (Taken 04/22/20211741) Patient Progress: Up x1, gait belt, and walker. Occupational Therapy - Zehra Coreas OTR/L - 04/22/2021 4:05 PM CDT Attempted to see pt for OT this date. Patient declined secondary to fatigue. OT will follow up on 04/23 as able/appropriate. DAHLIA Norris OTR/L [place] Pager #: [phone] ase Mgmt - Ren Tolbert RN (Dee) - 04/22/2021 1:49 PM CDT CASE MANAGEMENT / SOCIAL SERVICE TRANSITION PLAN - PROGRESS NOTE PLAN: Insurance [employer] has denied admission to [facility] rehab Waiting for bed offer for TCU/SWB Will Continue to Follow for Support and Progression Towards Final Transition Plan Case Management will continue to collaborate with the patient, family, and care team to ensure a safe, timely, and effective transition plan goal is TCU to continue therapy prior to discharge home BARRIERS TO TRANSITION: Awaiting Therapy Recommendations Discharge Needs to be Determined Medical observation of lab work and vital signs DOES ACCEPTING FACILITY REQUIRE COVID TESTING BEFORE DISCHARGE: N/A COMMENTS / PATIENT AND FAMILY RESPONSE TO PLAN: Patient's chart reviewed. Patient reviewed in transition rounds today with Charge Nurse,pharmacist, physical therapy, andRN/CUT TOBACCO BULKER Pan Devulcanizer. Had long discussion with Patient and son and they are aware of insurance process He is also aware that [employer] may deny the stay if they don't feel he meets criteria. IS PATIENT'S ADMISSION ASSOCIATED WITH TIA, ISCHEMIC, OR HEMORRHAGIC STROKE?: No PATIENT / SUBSTITUTE DECISION MAKER GOAL UPON TRANSITION: First Choice:[facility] Swing Bed ANTICIPATED NEEDS UPON TRANSITION: [facility] RESOURCE(S) PROVIDED: DANDRE WESLH Acute rehab navigatorDiane visited with patient on Wednesday Patient accepted their bed offer Insurance approval was started through [facility] on Wednesday ANTICIPATED MODE OF TRANSPORT UPON TRANSITION: Stretcher transport--[facility] or [facility] As arranged by accepting facility [facility] ANTICIPATED MODE OF TRANSPORT TO AND FROM FOLLOW UP APPOINTMENTS: As arranged by accepting facility [facility] VERIFIED CORRECT PHARMACY IS ENTERED FOR DISCHARGE: No Depends on disposition TRANSITION ROUNDING COMPLETED WITH THE FOLLOWING: service counselorkeeper helper Pharmacist Physical Therapist SIGNED: Mary Tolbert RN (Dorea) [facility] [phone] [email or web address] hysical Therapy - Kyle Slaughter, PT - 04/22/2021 9:31 AM CDT Patient declined PT as he " does not have the energy " for therapy. are Planning - Aberle, Miranda J, RN - 04/22/2021 6:55 AM CDT Problem: ACUTE PAIN Goal: CLIENT SATISFACTION: PAIN MANAGEMENT Description: DEFINITION: Extent of positive perception of nursing care to relieve pain. 1=Not at all satisfied, 2=Somewhat satisfied, 3=Moderately satisfied, 4=Very satisfied, 5=Completely satisfied. Outcome: NOC Rating 3 Flowsheets (Taken 04/22/2021 06) Plan of care reviewed with: Patient Patient specific goal for the day: Patient will maintain a tolerable pain level with scheduled and PRN pain medications. Patient specific goal for the stay: Patient will maintain a tolerable pain level with oral pain medications. Achieve goal for stay: By discharge Patient Progress: Patient rating pain a 0-2/10 on a scale of 0 to 10. Patient given scheduled pain medications. Patient understands additional pain medications are available if pain increases. Patient repositioned for comfort. Will continue to montior. Problem: IMPAIRED PHYSICAL MOBILITY Goal: MOBILITY Description: DEFINITION: Ability to move purposefully in own environment independently with or without assistive device. 1=Severely compromised / Total assistance: Performs less than 25% of activity; 2=Substantially compromised / Maximal assistance: Performs 25-49% of activity; 3=Moderately compromised / Moderate assistance: Performs 50-74% of activity; 4=Mildly compromised / Modified independence: Needs assistive device, supervision, minimal contact,or safety is a concern; 5=Not compromised / Complete independence. Outcome: NOC Rating 3 Flowsheets (Taken 04/22/2021651) Plan of care reviewed with: Patient Patient specific goal for the day: Patient will alert staff prior to ambulating Patient specific goal for the stay: Patient will remain free from falls during this hospitalization. Achieve goal for stay: By discharge Patient Progress: Patient ambulating with assist x1, gait belt, and walker. Patient repositioned frequently throughout the night. Will continue to monitor. Clinical Team - Melyssa Louis RN - 04/21/2021 7:30 PM CDT Pt had a large emesis tonight with yellow mucus looks like bile mucus as well as a large loose stool. Dr. Jensen notified regarding concern that his post-op ileus has not completely resolved yet as wellas his intermittent confusion. Dr. Jensen ordered scheduled Reglan, lactulose and placed pt on full liquid tonight. Will monitor closely. are Planning - Kristen Roche RN - 04/21/2021 3:27 PM CDT Problem: ACUTE PAIN Goal: CLIENT SATISFACTION: PAIN MANAGEMENT Description: DEFINITION: Extent of positive perception of nursing care to relieve pain. 1=Not at all satisfied, 2=Somewhat satisfied, 3=Moderately satisfied, 4=Very satisfied, 5=Completely satisfied. Flowsheets (Taken 04/21/2021 1525) Initial Score: 3 Target Score: 5 Plan of care reviewed with: Patient Patient specific goal for the day: pt will have tolerable pain level with use of available oral painmedications and alternative therapies, during this shift. Patient specific goal for the stay: pt will report a pain level at or below 6/10 with use of prescribed oral medications before discharge Achieve goal for stay: By discharge Patient Progress: pt rates pain today between 3 and 6 out of 10. pt is satisfied with pain management, hysical Therapy - Suze Lowry DPT - 04/21/2021 12:22 PM CDT Physical Therapy Orthopedic TKA Treatment Note Date: 04/21/2021 Assessment/Recommendations: Patient tolerates seated exercise and walking fair. Patient goes sit to stand from recliner with contact assist and ambulates 150 feet with BFWW and contact assist with slow, semi-reciprocating gait pattern. Was very confused throughout PT treatment, not sure of environment and not appropriate conversation. Recommend discharge to intensive rehab when medically stable and therapy goals met. Subjective: Alert and Oriented. Patient demonstrates confusion. Patient states " I am not in thehospital." Objective: Gait belt donned for all out of bed activities. Lab Results Component Value Date HEMOGLOBIN 13.4 (L) 04/18/2021 Supine to/from sit: N/t as up in recliner. Sit to/from stand: Goes sit to stand from recliner with contact assist and verbal cues for proper hand placement. Sitting Balance: Fair Standing Balance: Fair with bariatric FWW and contact assist. Gait: Ambulates 150 feet with bariatric fWW and contact assist with slow, semi- reciprocating gait pattern with recliner follow. At completion of treatment, cold packs applied to anterior-posterior aspect of right knee while sitting in recliner. Stairs: - ROM: AAROM right knee - 5 - 80 degrees Exercises: Completes 10 reps of exercise on surgical LE which includes ankle pumps, quad sets and hamstring sets with fair quality strength, and seated heel slides, and LAQ with minimal to no assistance. Pain: (0-10 scale) At rest: low back - 6, right knee - 4. With Activity: - Education: Reviewed precautions, exercise progression, transfer techniques, gait and mobility progression. Assessment: Patient tolerated treatment well. Anticipate that patient will be ready to go to rehab when medically stable and bed available. Plan: Continue with plan of care. Time Treatment Occurred: 1245 Gait: 13 minutes Therapeutic Exercise: 15 minutes Therapeutic Activity: 0 minutes TOTAL TIMED CODES: 28 minutes TREATMENT TOTAL TIME: 28 minutes are Planning - Kristen Roche RN - 04/21/2021 12:15 PM CDT Problem: ACUTE PAIN Goal: CLIENT SATISFACTION: PAIN MANAGEMENT Description: DEFINITION: Extent of positive perception of nursing care to relieve pain. 1=Not at all satisfied, 2=Somewhat satisfied, 3=Moderately satisfied, 4=Very satisfied, 5=Completely satisfied. Flowsheets (Taken 04/21/2021 1525) Initial Score: 3 Target Score: 5 Plan of care reviewed with: Patient Patient specific goal for the day: pt will have tolerable pain level with use of available oral painmedications and alternative therapies, during this shift. Patient specific goal for the stay: pt will report a pain level at or below 6/10 with use of prescribed oral medications before discharge Achieve goal for stay: By discharge Patient Progress: pt rates pain today between 3 and 6 out of 10. pt is satisfied with pain management, Problem: IMPAIRED PHYSICAL MOBILITY Goal: MOBILITY Description: DEFINITION: Ability to move purposefully in own environment independently with or without assistive device. 1=Severely compromised / Total assistance: Performs less than 25% of activity; 2=Substantially compromised / Maximal assistance: Performs 25-49% of activity; 3=Moderately compromised / Moderate assistance: Performs 50-74% of activity; 4=Mildly compromised / Modified independence: Needs assistive device, supervision, minimal contact,or safety is a concern; 5=Not compromised / Complete independence. 04/21/20212030 by Kristen Roche RN Flowsheets (Taken 04/21/20212030) Plan of care reviewed with: Patient Patient specific goal for the day: pt will call staff for assitance and remain free from falls for this shift Patient specific goal for the stay: pt will remain free from falls during this admission Patient Progress: pt is up with 1 assist with walker and gait belt in place. 04/21/20211528 by Kristen Roche RN Flowsheets (Taken 04/21/2021 152) Initial Score: 3 Target Score: 4 Plan of care reviewed with: Patient ccupational Therapy - Zehra Coreas OTR/Michaela - 04/21/2021 11:59 AM CDT Occupational Therapy Orthopedic Progress Note Treatment Today's Treatment Self care/home management: 24 minutes Start Time: 1050 Total for time-based codes: 24 minutes Total treatment time: 24 minutes Impression/Plan: See daily M-F for ADL/transfer training/education, assess adpative equipment needs. Recommend: Short term SNF Pain: Pain at rest: 6/10 Pain during activity: 6/10 Location: R knee Treatment provided: Patient was brought to the OT department via w/c and was educated in car & walk in shower transfers to simulate home setting. Patient completing sit<>stand from w/c with max cues and min-mod A for each stand. Patient completed car transfer with mod A using FWW, needing extra time/effort to manage RLE in/out of the car. Patient completed walk in shower transfer with mod Ausing shower chair and verbal cues to manage step over shower threshold. At this time, patient wouldnot be safe to return home alone. Recommend for patient to continue with skilled therapies at a low intensity setting upon medical stability. Recommend w/c transport for safety. Adaptive Equipment Recommended: Grab bars shower To further assess. Assessment: Patient showing a decrease in ADL/transfer performance and will benefit from continued OT. Goals by discharge: Patient will be independent with bed, chair, toilet, car transfers with adaptive equipment as needed. Patient will be independent with tub/shower transfer with adaptive equipment as needed. Patient will be independent with self care skills with adaptive equipment as needed. Patient will be independent Pt progressing towards goals Therapist pager #: [phone] Clinical Team - Kristen Roche RN - 04/21/2021 11:45 AM CDT Pt report given to Tory GUTIÉRREZ, @ [facility]. Pt waitin [facility] to transport to facility. ase Mgmt - Ren Tolbert (Mary)MARLA - 04/21/2021 11:03 AM CDT CASE MANAGEMENT / SOCIAL SERVICE TRANSITION PLAN - PROGRESS NOTE PLAN: Has been approved for [facility] rehab Waiting for insurance approval Will Continue to Follow for Support and Progression Towards Final Transition Plan Case Management will continue to collaborate with the patient, family, and care team to ensure a safe, timely, and effective transition plan goal is TCU or acute rehab to continue therapy prior to discharge home Will also need [employer] Medicare replacement approval for TCU/Rehab BARRIERS TO TRANSITION: Awaiting Therapy Recommendations Discharge Needs to be Determined Medical observation of lab work and vital signs DOES ACCEPTING FACILITY REQUIRE COVID TESTING BEFORE DISCHARGE: N/A COMMENTS / PATIENT AND FAMILY RESPONSE TO PLAN: Patient's chart reviewed. Patient reviewed in transition rounds today with Charge Nurse, pharmacist, physical therapy, and RN/CUT TOBACCO BULKER Pan Devulcanizer. [facility] rehab visited patient on Wednesday and feels he would be a good candidate for their program. They started the pre-auth Wednesday through [employer]. Had long discussion with Patient and son and they are aware of insurance process He is aware that if he makes good progress over the weekend he may be able to go straight home with home health. He is also aware that [employer] may deny the rehab stay if they don't feel he meets criteria. IS PATIENT'S ADMISSION ASSOCIATED WITH TIA, ISCHEMIC, OR HEMORRHAGIC STROKE?: No PATIENT / SUBSTITUTE DECISION MAKER GOAL UPON TRANSITION: First Choice: Acute Rehab [facility] Swing Bed ANTICIPATED NEEDS UPON TRANSITION: Acute Rehab [facility] RESOURCE(S) PROVIDED: DANDRE WELSH Acute rehab navigatorDiane visited with patient on Wednesday Patient accepted their bed offer Insurance approval was started through [facility] on Wednesday ANTICIPATED MODE OF TRANSPORT UPON TRANSITION: Stretcher transport--[facility] or [facility] As arranged by accepting facility [facility] ANTICIPATED MODE OF TRANSPORT TO AND FROM FOLLOW UP APPOINTMENTS: As arranged by accepting facility [facility] VERIFIED CORRECT PHARMACY IS ENTERED FOR DISCHARGE: No Depends on disposition TRANSITION ROUNDING COMPLETED WITH THE FOLLOWING: service counselorkeeper helper Pharmacist Physical Therapist SIGNED: Mary Tolbert RN (Dorea) [facility] [id number] [email or web address] hysical Therapy - Kyle Slaughter, PT - 04/21/2021 10:46 AM CDT Physical Therapy Orthopedic TKA Treatment Note Date: 04/21/2021 Assessment/Recommendations: Patient tolerates seated exercise and walking fair. Patient goes sit to stand from recliner with contact assist and ambulates 150 feet with BFWW and contact assist with slow, semi-reciprocating gait pattern. Demonstrates 1 episode of slight buckling with right knee with walking but able to regain balance on own with contact assist. Recommend discharge to intensive rehab when medically stable and therapy goals met. Subjective: Alert and Oriented. Patient demonstrates some confusion. Patient states " I'm not going to discharge for 4 - 5 days ... and then I"ll just go home." Objective: Gait belt donned for all out of bed activities. Lab Results Component Value Date HEMOGLOBIN 13.4 (L) 04/18/2021 Supine to/from sit: N/t as up in recliner. Sit to/from stand: Goes sit to stand from recliner with contact assist and verbal cues for proper hand placement. Sitting Balance: Fair Standing Balance: Fair with bariatric FWW and contact assist. Gait: Ambulates 150 feet with bariatric fWW and contact assist with slow, semi- reciprocating gait pattern with recliner follow. Demonstrates 1 episode of slight buckling of right knee with walking but able to regain balance. At completion of treatment, cold packs applied to anterior-posterior aspect of right knee while sitting in recliner. Stairs: - ROM: AAROM right knee - 5 - 80 degrees Exercises: Completes 10 reps of exercise on surgical LE which includes ankle pumps, quad sets and hamstring sets with fair quality strength, and seated heel slides, and LAQ with minimal to no assistance. Pain: (0-10 scale) At rest: low back - 6, right knee - 4. With Activity: - Education: Reviewed precautions, exercise progression, transfer techniques, gait and mobility progression. Assessment: Patient tolerated treatment well. Anticipate that patient will be ready to go to rehab when medically stable and bed available. Plan: Continue with plan of care. Time Treatment Occurred: 1017 Gait: 13 minutes Therapeutic Exercise: 15 minutes Therapeutic Activity: 0 minutes TOTAL TIMED CODES: 28 minutes TREATMENT TOTAL TIME: 28 minutes are Planning - Vidal Robison RN - 04/21/2021 7:37 AM CDT Problem: ACUTE PAIN Goal: CLIENT SATISFACTION: PAIN MANAGEMENT Description: DEFINITION: Extent of positive perception of nursing care to relieve pain. 1=Not at all satisfied, 2=Somewhat satisfied, 3=Moderately satisfied, 4=Very satisfied, 5=Completely satisfied. Outcome: NOC Rating 3 Flowsheets (Taken 04/21/2021 0736) Patient Progress: rates pain 4-5/10. see mar Problem: IMPAIRED PHYSICAL MOBILITY Goal: MOBILITY Description: DEFINITION: Ability to move purposefully in own environment independently with or without assistive device. 1=Severely compromised / Total assistance: Performs less than 25% of activity; 2=Substantially compromised / Maximal assistance: Performs 25-49% of activity; 3=Moderately compromised / Moderate assistance: Performs 50-74% of activity; 4=Mildly compromised / Modified independence: Needs assistive device, supervision, minimal contact,or safety is a concern; 5=Not compromised / Complete independence. Outcome: NOC Rating 2 Flowsheets (Taken 04/21/2021 9768) Patient Progress: Up x1-2, gait belt, and walker. Bed alarm on. Tried to get up three times without assistance. linical Team - Johanna Georges RN - 04/21/2021 5:39 AM CDT Pt. has been up & down & in/out of bed every 30-45 minutes all night long. Very little sleep tonight. Possibly 1 hour total. Pt has not slept well the 2 nights prior as well either. linical Team - Johanna Georges RN - 04/20/2021 11:33 PM CDT Pt. is experiencing delirium r/t pain medications and lack of sleep. Pt. states he is seeing Aliens.Dr. Reeves notified and scientific technical writer was told to hold all Narcotics and just give Tylenol. are Planning - Larry Vázquez RN - 04/20/2021 6:38 PM CDT Problem: ACUTE PAIN Goal: CLIENT SATISFACTION: PAIN MANAGEMENT Description: DEFINITION: Extent of positive perception of nursing care to relieve pain. 1=Not at all satisfied, 2=Somewhat satisfied, 3=Moderately satisfied, 4=Very satisfied, 5=Completely satisfied. Flowsheets (Taken 04/20/2021 9802) Patient Progress: Pt says he has no pain during shift. Problem: IMPAIRED PHYSICAL MOBILITY Goal: MOBILITY Description: DEFINITION: Ability to move purposefully in own environment independently with or without assistive device. 1=Severely compromised / Total assistance: Performs less than 25% of activity; 2=Substantially compromised / Maximal assistance: Performs 25-49% of activity; 3=Moderately compromised / Moderate assistance: Performs 50-74% of activity; 4=Mildly compromised / Modified independence: Needs assistive device, supervision, minimal contact,or safety is a concern; 5=Not compromised / Complete independence. Flowsheets (Taken 04/20/2021 183) Patient Progress: Up x1-2, gait belt, and walker. Bed alarm on. Tried to get up three times without assistance. Problem: IMPAIRED SKIN INTEGRITY Goal: WOUND HEALING: PRIMARY INTENTION Description: DEFINITION: Extent of regeneration of cells and tissues following intentional closure. 1=None, 2=Limited, 3=Moderate, 4=Substantial, 5=Extensive (rate granulation, scar formation, decreased wound size). Flowsheets (Taken 04/20/2021 183) Patient Progress: Drsg to R knee dry and intact. linical Team - Tyler Domínguez RN - 04/20/2021 3:49 PM CDT Per PT report, patient not following simple directs. Cryptologic Supervisor's assessment patient shows signs of delirium, Confused but corrects self. Provider notified MD Smith. Scheduled Tramadol discontinued by . Patient moved to closer to charge nurse desk. Will continue to monitor. hysical Therapy - Magdalena Robledo, PT - 04/20/2021 1:15 PM CDT Physical Therapy Orthopedic TKA Treatment Note Date: 04/20/2021 Assessment/Recommendations: Patient tolerated treatment fairly well, ambulating 60 ft with bariatricFWW and CGA, at slow pace, semi-reciprocal pattern. Markel seemed somewhat confused this afternoon, difficulty following simple commands for ankle pumps, trouble understanding how to back step to chair,difficulty finding his room after short walk out into the hallway. (Tyler, service counselor, made aware.) Anticipate that patient will be ready to go to [facility] rehab Wednesday for continued therapies. Subjective: Alert and oriented to place, day of week, and today's date (looks at white board). Patient responds with joking remarks when asked other orientation questions. Confusion noted as documented above. Difficulty following simple commands. Objective: Lab Results Component Value Date HEMOGLOBIN 13.4 (L) 04/18/2021 Sit to supine: use of trapeze and assist of 1 with right lower extremity Sit to/from stand: Moderate assist of 1 to rise from recliner chair. Minimal assist of 1 to rise from elevated bed up to FWW. Sitting Balance: Good EOB. Required total assist to don slippers. Standing Balance: Fair with BFWW Gait: Ambulated 60 ft with BFWW and contact guard assist of 1, at slow pace, semi-reciprocal pattern. Heavy reliance on upper extremities, cues for "step- through" gait pattern. Stairs: NA AAROM Right Knee: 12 - 70 degrees flexion Exercises: Completes 10 reps of exercises including bilateral active ankle pumps, and with surgical LE: quad sets and hamstring sets with fair minus/fair quality strength, heel slide flexion/ "floor polishing" with gentle over-pressure stretch, LAQs and SAQs with moderate assist; SLR with mod-max assistance. Supine knee extension stretch with gentle over-pressure applied to improve ROM. Patient sitting comfortably in recliner chair at end of session, enjoying a cheeseburger and fries. Cold packs applied to right knee and call light in reach. Pain: (0-10 scale) At rest: 6 With activity: 7 Cold packs applied to right knee. Education: Reviewed precautions, exercise progression, transfer techniques, gait and mobility progression. Plan: Continue with PT plan of care. Time Treatment Occurred: 13:15 Gait: 14 minutes Therapeutic Exercise: 15 minutes Therapeutic Activity: 0 minutes TOTAL TIMED CODES: 29 minutes TREATMENT TOTAL TIME: 29 minutes are Planning - Naty Gaming LPN - 04/20/2021 12:03 PM CDT Patient participated with PT/OT as ordered, walk to the bathroom with assist of 1, FWW, and gait belt. Non-slip socks in use. Steady gait. Tolerated well. Alert and oriented x2,. Will continue participate in PT/OT until discharged from therapies. Patient rates pain at 7/10 on 0-10 scale. Oral pain medication available as needed, see MAR. Ice applied to right knee and positioned for comfort. Incision to right knee dressed. . Patient voiced satisfied with pain management. Patient was instructed to inform nursing staff if further pain management needed right away. Viadl Weber RN - 04/20/2021 7:53 AM CDT Problem: IMPAIRED PHYSICAL MOBILITY Goal: MOBILITY Description: DEFINITION: Ability to move purposefully in own environment independently with or without assistive device. 1=Severely compromised / Total assistance: Performs less than 25% of activity; 2=Substantially compromised / Maximal assistance: Performs 25-49% of activity; 3=Moderately compromised / Moderate assistance: Performs 50-74% of activity; 4=Mildly compromised / Modified independence: Needs assistive device, supervision, minimal contact,or safety is a concern; 5=Not compromised / Complete independence. Outcome: NOC Rating 2 Flowsheets (Taken 04/20/2021 0753) Achieve goal for stay: By discharge Patient Progress: Up x1, gait belt, and walker. Gait steady. Vidal Weber RN - 04/20/2021 7:52 AM CDT Problem: ACUTE PAIN Goal: CLIENT SATISFACTION: PAIN MANAGEMENT Description: DEFINITION: Extent of positive perception of nursing care to relieve pain. 1=Not at all satisfied, 2=Somewhat satisfied, 3=Moderately satisfied, 4=Very satisfied, 5=Completely satisfied. Outcome: NOC Rating 2 Flowsheets (Taken 04/20/2021 0752) Patient Progress: Rates pain 7-10/10. Scheduled and PRN medications given, see MAR. Ice applied. Larry Hill RN - 04/19/2021 5:07 PM CDT Problem: ACUTE PAIN Goal: CLIENT SATISFACTION: PAIN MANAGEMENT Description: DEFINITION: Extent of positive perception of nursing care to relieve pain. 1=Not at all satisfied, 2=Somewhat satisfied, 3=Moderately satisfied, 4=Very satisfied, 5=Completely satisfied. Flowsheets (Taken 04/19/20211706) Patient Progress: Rates pain 7-10. Scheduled and PRN medications given, see JAN. Ice applied. Problem: IMPAIRED PHYSICAL MOBILITY Goal: MOBILITY Description: DEFINITION: Ability to move purposefully in own environment independently with or without assistive device. 1=Severely compromised / Total assistance: Performs less than 25% of activity; 2=Substantially compromised / Maximal assistance: Performs 25-49% of activity; 3=Moderately compromised / Moderate assistance: Performs 50-74% of activity; 4=Mildly compromised / Modified independence: Needs assistive device, supervision, minimal contact,or safety is a concern; 5=Not compromised / Complete independence. Flowsheets (Taken 04/19/20211706) Patient Progress: Up x1, gait belt, and walker. Gait steady. hysical Therapy - Jessi Maradiaga, PT - 04/19/2021 2:07 PM CDT Physical Therapy Orthopedic TKA Treatment Note Date: 04/19/2021 Assessment/Recommendations: Patient tolerated treatment fairly. Limited by high pain levels. Anticipate that patient will be ready to go to [facility] Wednesday. Subjective: Alert and Oriented. Nauseated this afternoon. Feels as though he needs to have a BM. Agreeable to ambulate to the bathroom but declines further ambulation this PM. Objective: Lab Results Component Value Date HEMOGLOBIN 13.4 (L) 04/18/2021 Sit to supine: use of trapeze and assist x 1 with right lower extremity Sit to/from stand: Moderate assist x 1 from chair and toilet Sitting Balance: Good Standing Balance: Good with BFWW Gait: Ambulated 10 feet x 2 with BFWW and contact guard assist x 1 and assist with IV pole. Step-to pattern with heavy reliance on upper extremities, cues for reciprocating gait. Stairs: NA ROM: See AM note Exercises: Completes 10 reps of exercises including bilateral active ankle pumps, and with surgical LE: quad sets and hamstring sets with fair quality strength, heel slides with assist, active assisted LAQ, and SLR with mod-max assistance. Patient lying in comfortably in bed at end of session. Ice packs applied to right knee and call light in reach. Pain: (0-10 scale) At rest: 8-9 Education: Reviewed precautions, exercise progression, transfer techniques, gait and mobility progression. Plan: Continue with PT plan of care. Time Treatment Occurred: 13:40 Gait: 10 minutes Therapeutic Exercise: 15 minutes Therapeutic Activity: 0 minutes TOTAL TIMED CODES: 25 minutes TREATMENT TOTAL TIME: 25 minutes hysical Therapy - Jessi Maradiaga, PT - 04/19/2021 10:32 AM CDT Physical Therapy Orthopedic TKA Treatment Note Date: 04/19/2021 Assessment/Recommendations: Patient tolerated treatment fairly. Limited by high pain levels. Progressing with mobility. Anticipate that patient will be ready to go to [facility] rehab Wednesday. Subjective: Alert and Oriented. Agreeable to PT. Son is present and supportive. Objective: Lab Results Component Value Date HEMOGLOBIN 13.4 (L) 04/18/2021 Supine to sit: modified independence with use of trapeze Sit to/from stand: Moderate assist x 2 Sitting Balance: Good Standing Balance: Good with BFWW Gait: Ambulated 40 feet with BFWW and contact guard assist x 1, chair following for safety and to progress ambulation distance. Step-to pattern with heavy reliance on upper extremities, cues for reciprocating gait. Stairs: NA ROM: AAROM Right knee: 5-75 degrees Exercises: Completes 10 reps of exercises including bilateral active ankle pumps, and with surgical LE: quad sets and hamstring sets with fair quality strength, heel slides with assist, active assisted LAQ, and SLR with mod-max assistance. Pain: (0-10 scale) At rest: 8-9 Receiving pain medication at beginning of session. Education: Reviewed precautions, exercise progression, transfer techniques, gait and mobility progression. Plan: Continue with PT plan of care. Time Treatment Occurred: 9:30 / 10:10 AM Gait: 15 minutes Therapeutic Exercise: 10 minutes Therapeutic Activity: 0 minutes TOTAL TIMED CODES: 25 minutes TREATMENT TOTAL TIME: 25 minutes are Planning - Vidal Robison RN - 04/19/2021 7:32 AM CDT Problem: ACUTE PAIN Goal: CLIENT SATISFACTION: PAIN MANAGEMENT Description: DEFINITION: Extent of positive perception of nursing care to relieve pain. 1=Not at all satisfied, 2=Somewhat satisfied, 3=Moderately satisfied, 4=Very satisfied, 5=Completely satisfied. Outcome: NOC Rating 3 Flowsheets (Taken 04/19/2021 0731) Patient Progress: Rates pain 5-8/10. Scheduled and PRN medications given, see MAR. Ice applied. Problem: IMPAIRED PHYSICAL MOBILITY Goal: MOBILITY Description: DEFINITION: Ability to move purposefully in own environment independently with or without assistive device. 1=Severely compromised / Total assistance: Performs less than 25% of activity; 2=Substantially compromised / Maximal assistance: Performs 25-49% of activity; 3=Moderately compromised / Moderate assistance: Performs 50-74% of activity; 4=Mildly compromised / Modified independence: Needs assistive device, supervision, minimal contact,or safety is a concern; 5=Not compromised / Complete independence. Outcome: NOC Rating 3 Flowsheets (Taken 04/19/2021 0731) Patient Progress: Up x1, gait belt, and walker. Gait steady. are Planning - Larry Vázquez RN - 04/18/2021 4:47 PM CDT Problem: ACUTE PAIN Goal: CLIENT SATISFACTION: PAIN MANAGEMENT Description: DEFINITION: Extent of positive perception of nursing care to relieve pain. 1=Not at all satisfied, 2=Somewhat satisfied, 3=Moderately satisfied, 4=Very satisfied, 5=Completely satisfied. Flowsheets (Taken 04/18/2021 1645) Patient Progress: Rates pain 5-8/10. Scheduled and PRN medications given, see MAR. Ice applied. Problem: IMPAIRED PHYSICAL MOBILITY Goal: MOBILITY Description: DEFINITION: Ability to move purposefully in own environment independently with or without assistive device. 1=Severely compromised / Total assistance: Performs less than 25% of activity; 2=Substantially compromised / Maximal assistance: Performs 25-49% of activity; 3=Moderately compromised / Moderate assistance: Performs 50-74% of activity; 4=Mildly compromised / Modified independence: Needs assistive device, supervision, minimal contact,or safety is a concern; 5=Not compromised / Complete independence. Flowsheets (Taken 04/18/2021 1645) Patient Progress: Up x1, gait belt, and walker. Gait steady. Problem: IMPAIRED SKIN INTEGRITY Goal: WOUND HEALING: PRIMARY INTENTION Description: DEFINITION: Extent of regeneration of cells and tissues following intentional closure. 1=None, 2=Limited, 3=Moderate, 4=Substantial, 5=Extensive (rate granulation, scar formation, decreased wound size). Flowsheets (Taken 04/18/2021 1645) Patient Progress: Drsg to R knee dry and intact. hysical Therapy - Jami Bazan PT - 04/18/2021 3:48 PM CDT Physical Therapy Orthopedic Treatment Note Date: 04/18/2021 PM Diagnosis, ortho procedure and date: R TKA 04/17/2021 Precautions: no kneeling, no twisting Assessment/Recommendations: Markel was able to ambulate ~ 60' with BFWW today. He will benefit from continued PT in a TCU/Rehab setting prior to home. Subjective: Willing to work with therapy. Objective: Supine to/from sit: Independent Sit to/from stand: Contact guard assist Sitting Balance: Good Standing Balance: Fair+ Gait: Ambualted ~ 60' with BFWW and recliner following. Stairs: NA ROM: ~ 10-75 degrees R knee Exercises: Patient completes TKA exercises times 10 repetitions with mod assistance for active exercises. Fair strength with isometric exercises. Pain: (0-10 scale) At rest: 6 With Activity: 8 Education: Reviewed precautions, exercise progression, transfer techniques, gait and mobility progression. Plan: Continue with TKA protocol. Time Treatment Occurred: 1527 Gait: 10 minutes Exercise: 13 minutes Therapeutic Activity: 0 minutes TOTAL TIMED CODES: 23 minutes TREATMENT TOTAL TIME: 23 Minutes Dominga Bazan PT Alpha pager [phone] Nutrition Team - Tila Manning RD - 04/18/2021 1:33 PM CDT Nutrition Note Patient admitted on 04/17/2021 7:41 AM for Active Problems: * No active hospital problems. * R TKA Per EMR Malnutrition Screening Tool completed at admission, pt does not meet screening criteria for an increased potential for developing malnutrition with an MST Score of 0 (Score > 2 considered positive for nutrition risk). Nutrition screening revealed no difficulty eating or significant unintentional weight loss prior to admission. Past medical history noted and is not currently placing pt at increased nutrition risk. Height: 182.9 cm (6') Weight: (!) 158 kg (348 lb 5.2 oz) BMI: Body mass index is 47.24 kg/m. Nutrition (From admission, onward) Start Ordered 04/17/21 1415 ADVANCE DIET TOLERATED ONCE 04/17/21 1414 04/17/21 1415 Diet - Regular Now Question: Standard Diets Answer: Regular 04/17/21 1414 Plan to monitor po intake adequacy during admission. If provider feels pt has nutritional concerns,please send Inpatient Dietitian consult with indication for referral. PAZ Conklin Pager #[phone] Physical Therapy - Jami Bazan, PT - 04/18/2021 11:55 AM CDT Physical Therapy Orthopedic Treatment Note Date: 04/18/2021 AM Diagnosis, ortho procedure and date: R TKA 04/17/2021 Precautions: no kneeling, no twisting Assessment/Recommendations: Markel was able to participate well with his exercises, but declined ambulation, as he was fatigued after working with OT. Will follow BID. Pt plans to continue PT in a TCUor rehab setting at [place] Subjective: Pleasant, cooperative. Objective: Supine to/from sit: Used trapeze Sit to/from stand: Min assist of 1 with BFWW from recliner Sitting Balance: Good Standing Balance: Good with BFWW Gait: Ambulated ~ 5' from chair to bed with Contact guard assist Stairs: NA ROM: 5-74 degrees R knee Exercises: Patient completes TKA exercises times 10 repetitions with min assistance for active exercises. Good strength with isometric exercises. Pain: (0-10 scale) At rest: 6 With Activity: 8 Education: Reviewed precautions, exercise progression, transfer techniques, gait and mobility progression. Plan: Continue with TKA protocol. Time Treatment Occurred: 1145 Gait: 0 minutes Exercise: 15 minutes Therapeutic Activity: 0 minutes TOTAL TIMED CODES: 15 minutes TREATMENT TOTAL TIME: 15 Minutes Dominga Bazan PT Alpha pager [phone] ase Jay - Ren Tolbert (Mary) RN - 04/18/2021 11:10 AM CDT CASE MANAGEMENT / SOCIAL SERVICE TRANSITION PLAN - PROGRESS NOTE PLAN: Awaiting Medical Doctor Recommendations for Transition Will Continue to Follow for Support and Progression Towards Final Transition Plan Case Management will continue to collaborate with the patient, family, and care team to ensure a safe, timely, and effective transition plan goal is TCU or acute rehab to continue therapy prior to discharge home Will also need [employer] Medicare replacement approval for TCU/Rehab BARRIERS TO TRANSITION: Awaiting Therapy Recommendations Discharge Needs to be Determined Medical observation of lab work and vital signs DOES ACCEPTING FACILITY REQUIRE COVID TESTING BEFORE DISCHARGE: N/A COMMENTS / PATIENT AND FAMILY RESPONSE TO PLAN: Patient's chart reviewed. Patient reviewed in transition rounds today with Charge Nurse, pharmacist, physical therapy, and RN/CUT TOBACCO BULKER Pan Devulcanizer. [facility] visited patient today and feels he would be a good candidate for their program. They will start the pre-auth today through [employer]. Had long discussion with Patient and son and they aware of insurance process He is aware that if he makes good progress over the weekend he may be able to go straight home with home health. He is also aware that [employer] may deny the rehab stay. IS PATIENT'S ADMISSION ASSOCIATED WITH TIA, ISCHEMIC, OR HEMORRHAGIC STROKE?: No PATIENT / SUBSTITUTE DECISION MAKER GOAL UPON TRANSITION: First Choice: Acute Rehab [facility] Swing Bed ANTICIPATED NEEDS UPON TRANSITION: Acute Rehab [facility] RESOURCE(S) PROVIDED: DANDRE WELSH Acute rehab navigator, Diane, is in house visiting with patient. If he is in agreement to rehab, [facility] will start the insurance process today ANTICIPATED MODE OF TRANSPORT UPON TRANSITION: As arranged by accepting facility [facility] ANTICIPATED MODE OF TRANSPORT TO AND FROM FOLLOW UP APPOINTMENTS: As arranged by accepting facility [facility] VERIFIED CORRECT PHARMACY IS ENTERED FOR DISCHARGE: No Depends on disposition TRANSITION ROUNDING COMPLETED WITH THE FOLLOWING: service counselorkeeper helper Pharmacist Physical Therapist SIGNED: Mary Tolbert RN (Dorea) [facility] [address] [email or web address] Occupational Therapy - Puma Bassett OTR/Michaela - 04/18/2021 11:00 AM CDT Occupational Therapy Orthopedic Evaluation Date: 04/18/2021 Time: 1100 Admitting Diagnosis: R TKA PMH: Past Medical History: Diagnosis Date Allergy Anxiety and depression BPH (benign prostatic hypertrophy) Degenerative disc disease, lumbar Depression ED (erectile dysfunction) Hemochromatosis Hepatitis C history of HTN (hypertension) Hyperlipidemia Knee pain Morbid obesity (HCC) Prostate cancer (HCC) Radiation/lupron Precautions: TKA Weight bearing status: WBAT SOCIAL/HOME ENVIRONMENT House: Motor home Lives Alone: Yes Bed/Bath on Main Floor: Yes Bath Setup: Walk-In Shower Prior Level of Functioning: Independent Adaptive Equipment Available: bow string maker and sock aid ADLs Dressing: CGA to don/doff brief using bow string maker and SBA to don/doff socks using bow string maker and sock aid .Pt reported he has used a bow string maker and sock aid for LB dressing before, but he still needed cues to use the appropriate AE. For example, he started to try donning his socks with the bow string maker and requireda cue to use the sock aid instead. Toileting: CGA to urinate in standing at the toilet TRANSFERS Bed: contact guard assistance for sit to stand from EOB with height of bed elevated Chair: contact guard assistance with walker. Pt tended to plop during stand to sit and benefited from cues to slow down and sit down more carefully. Toilet: contact guard assistance with walker to ambulate and stand at the toilet, sit to stand was not completed Total Knee precautions were reviewed with the patient. Patient demonstrates understanding of precautions. UE FUNCTION: WFL COGNITION: Alert and oriented Pain Level at Rest: 05/08 Pain Level with Activity: 05/08 PATIENT/FAMILY EDUCATION: TKA precautions Transfers Self Care Role of OT Family present during evaluation: Son Adaptive Equipment Recommended: Continue to assess; pt reported he will likely need a toilet riser and bow string maker Plan to obtain adaptive equipment: To further assess. Assessment: Patient showing a decrease in ADL/transfer performance and will benefit from continued OT. He lives alone, so needs to be independent with ADLs, transfers, and IADLs to return home and he currently requires CGA for ADLs and transfers. Plan: See daily M-F for ADL/transfer training/education, assess adpative equipment needs. Recommend: Rehab or SNF via w/c transport Goals by discharge: Patient will be independent with bed, chair, toilet, car transfers with adaptive equipment as needed. Patient will be independent with tub/shower transfer with adaptive equipment as needed. Patient will be independent with self care skills with adaptive equipment as needed. Patient will be independent for kitchen/home safety. Treatment Today's Treatment Evaluation Self care/home management: 15 minutes Total for time-based codes: 15 minutes Total treatment time: 31 minutes Evaluation Complexity PMH/Comorbidities that affect Occupational Performance: See above for PMH Occupational Profile/Medical and Therapy History: LOW - Brief history relating to presenting problem Patient Assessment: LOW - 1-3 performance deficits relating to physical, cognitive, psychosocial limitations/restrictions Clinical Decision Making: LOW - Low complexity, limited amount of treatment options, no assessment modification, no comorbidities Evaluation Complexity: Low Treatment provided: OT educated pt in precautions, safety, compensatory techniques, and AE for LB dressing, toileting, and transfers. Gait belt donned for all OOB activity and pt left sitting in chair with call light and tray table within reach. Therapist pager #: [phone] Certification dates: 04/18/2021 to 05/18/21 CERTIFICATION I certify that the services as described in the above note are furnished while the patient is under my care; a plan for furnishing these services has been established and will be periodically reviewed;the services are required for the patient; and the services are subject to established guidelines [id number] signed by Puma Bassett OTR/L at 04/18/2021 3:14 PM CDTCare Gilbert - Zelda Andrew RN - 04/18/2021 8:43 AM CDT Problem: ACUTE PAIN Goal: CLIENT SATISFACTION: PAIN MANAGEMENT Description: DEFINITION: Extent of positive perception of nursing care to relieve pain. 1=Not at all satisfied, 2=Somewhat satisfied, 3=Moderately satisfied, 4=Very satisfied, 5=Completely satisfied. Outcome: NOC Rating 3 Flowsheets (Taken 04/18/2021 0840) Patient Progress: Relates satisfied with pain management. See MAR. States has slept well. Problem: IMPAIRED PHYSICAL MOBILITY Goal: MOBILITY Description: DEFINITION: Ability to move purposefully in own environment independently with or without assistive device. 1=Severely compromised / Total assistance: Performs less than 25% of activity; 2=Substantially compromised / Maximal assistance: Performs 25-49% of activity; 3=Moderately compromised / Moderate assistance: Performs 50-74% of activity; 4=Mildly compromised / Modified independence: Needs assistive device, supervision, minimal contact,or safety is a concern; 5=Not compromised / Complete independence. Outcome: NOC Rating 3 Flowsheets (Taken 04/18/2021 0840) Patient Progress: Amb to BR with walker, gait belt, non-skid slippers and 1 assist. Gait steady, grabiel well. Resume PT in am. Problem: IMPAIRED SKIN INTEGRITY Goal: WOUND HEALING: PRIMARY INTENTION Description: DEFINITION: Extent of regeneration of cells and tissues following intentional closure. 1=None, 2=Limited, 3=Moderate, 4=Substantial, 5=Extensive (rate granulation, scar formation, decreased wound size). Outcome: NOC Rating 3 Flowsheets (Taken 04/18/2021 0840) Patient Progress: Drsg to R knee dry and intact. are Planning - Adela Ramsey RN - 04/17/2021 11:04 PM CDT Problem: ACUTE PAIN Goal: CLIENT SATISFACTION: PAIN MANAGEMENT Description: DEFINITION: Extent of positive perception of nursing care to relieve pain. 1=Not at all satisfied, 2=Somewhat satisfied, 3=Moderately satisfied, 4=Very satisfied, 5=Completely satisfied. Flowsheets (Taken 04/18/2021 2651) Initial Score: 3 Target Score: 5 Plan of care reviewed with: Patient Patient specific goal for the day: patient will report pain to be at or below 6/10 Patient specific goal for the stay: patient will report pain to be at or below 6/10 with oral medications and non-phamacological interventions Patient Progress: max reported pain ws 9/10. prn oxycodone 10mg administered in addition to scheduled pain medications, ice applied. Problem: IMPAIRED PHYSICAL MOBILITY Goal: MOBILITY Description: DEFINITION: Ability to move purposefully in own environment independently with or without assistive device. 1=Severely compromised / Total assistance: Performs less than 25% of activity; 2=Substantially compromised / Maximal assistance: Performs 25-49% of activity; 3=Moderately compromised / Moderate assistance: Performs 50-74% of activity; 4=Mildly compromised / Modified independence: Needs assistive device, supervision, minimal contact,or safety is a concern; 5=Not compromised / Complete independence. Flowsheets (Taken 04/18/2021 005) Initial Score: 3 Target Score: 4 Plan of care reviewed with: Patient Patient specific goal for the day: patient will call staff for asstance and will have no falls Patient specific goal for the stay: patient will have no falls and will work with therapies to improve function and be discharged. Achieve goal for stay: By discharge Patient Progress: paient somewhat forgetful, but is alert, fully oriented, using call light appropriately, and waiting for assistance before attempting to mobilize. He is able to mobilize to a sittingpossition at the edge of the bed with minimal assistance, but generally requires a strong boost to move into standing position. steady once standing, he has stood at the edge of the bed several times. has not ambulated this evening, not since his walk with PT. Problem: IMPAIRED SKIN INTEGRITY Goal: WOUND HEALING: PRIMARY INTENTION Description: DEFINITION: Extent of regeneration of cells and tissues following intentional closure. 1=None, 2=Limited, 3=Moderate, 4=Substantial, 5=Extensive (rate granulation, scar formation, decreased wound size). Flowsheets (Taken 04/18/2021 010) Initial Score: 3 Target Score: 4 Plan of care reviewed with: Patient Patient specific goal for the day: incision will be monitored and reinforced as needed. Patient specific goal for the stay: dressing will be changed and wound will show signs of healing. Achieve goal for stay: By discharge Patient Progress: dressing to right knee remaines clean, dry, and intact. ice applied continuously. Sue Tolbert, Dorea (Mary), RN - 04/17/2021 3:13 PM CDT CASE MANAGEMENT / SOCIAL SERVICE TRANSITION PLAN - INITIAL ASSESSMENT TRANSITION PLAN: goal is TCU or acute rehab to continue therapy prior to discharge home Will also need [employer] Medicare replacement approval for TCU/Rehab BARRIERS TO TRANSITION: Awaiting Therapy Recommendations / progress towards goals for safety Medical barriers: pain control COMMENTS / PATIENT AND FAMILY RESPONSE TO PLAN: Discussed with interdisciplinary team. Met with patient and son at the patient's bedside. Introduced Case Management and role in patient care. son Thomas [phone] Patient lives alone in [place], [place]. Patient was independent with ADLs prior to this admissions. Patient's goal upon discharge is TCU or rehab prior to home with family support. Anticipating transition in 1-2 days. Education provided in regards to anticipated plan of care. Encouraged patient to voice any concerns. Patient voiced understanding. Questions answered. 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 COMMUNITY SERVICES: None HEALTHCARE DIRECTIVE: No POWER OF DRESSING MACHINE OPERATOR: None FINANCIAL CONCERNS: No Concerns PRIMARY CARE PHYSICIAN: Yes Kyle Colon MD [phone] [place] [id number] IS PATIENT'S ADMISSION ASSOCIATED WITH TIA, ISCHEMIC, OR HEMORRHAGIC STROKE?: No LANGUAGE / COMMUNICATION BARRIERS: No PATIENT / SUBSTITUTE DECISION MAKER GOAL UPON TRANSITION: First Choice: Outpatient Therapy: Physical Therapy PATIENT CHOICE EDUCATION: Not applicable MEDICARE 3 IP MIDNIGHT CRITERIA MET: N/A TRANSITION CHOICES OFFERED: Home Health: Bath Aid, Nurse, Occupational Therapy and Physical Therapy Home: Family/Friend Support Outpatient Therapy: Physical Therapy Transitional Care REFERRAL(S) MADE: No RESOURCE(S) PROVIDED: OPPT DOES PATIENT HAVE CLOTHING TO WEAR AT DISCHARGE? Yes ANTICIPATED MODE OF TRANSPORT UPON DISCHARGE: [employer]avan [employer] VERIFIED CORRECT PHARMACY IS ENTERED FOR DISCHARGE: No --will depend on TCU rehab [id number] [address] [address] E- [facility] [address] [address] E- [id number] [address] [place] [id number] METHOD OF PRESCRIBING MEDICATIONS: Medications to be E-prescribed to above pharmacy TRANSITION ROUNDING COMPLETED WITH THE FOLLOWING: New admission CURRENT READMISSION RISK SCORE / HANDOFF: Handoff given: N/A Please refer to readmission risk assessment flowsheet for further details. SIGNED: Mary Tolbert RN (Dorea) [facility] [address] [email or web address] Operative Note - Joaquín Robles MD - 04/17/2021 2:23 PM CDT Operative Note Markel Lares is a 71yr old male admitted on 04/17/2021 7:41 AM. Attending Physician: Joaquín Robles MD Patient Type: Ambulatory Surgery Operative Date: 04/17/2021 Surgeon: Surgeon(s) and Role: * Joaquín Robles MD - Primary Claim Taker: Double Reamer Operator : May Tomlinson RN; Heydi Llanes RN Scrub Person : Sang Fernando CRCST; Naty Nielsen CST; Ivanna Barnes ST Mural Artist: Zi Diaz PA Anesthesia Type: spinal Anesthesia Staff: Anesthesiologist: Matt Tinoco MD CATTLE PRODUCERS: Marsha Brown APRN-CATTLE PRODUCERS Operative Procedure: PREOPERATIVE DIAGNOSIS: Degenerative joint disease, right knee. POSTOPERATIVE DIAGNOSIS: Degenerative joint disease, right knee. OPERATION PERFORMED: Total knee arthroplasty, right. PROCEDURE IN DETAIL: Informed consent was obtained. Chart was reviewed. The patient was brought to the operating room. After anesthesia was induced, all pressure points were carefully observed and padded in the supine position. The lower extremity was prepped and draped in the usual aseptic fashion. Atime-out was completed. The extremity was exsanguinated with Esmarch and tourniquet inflated to 300 mmHg. We began by making a standard anterior longitudinal incision for the medial parapatellar approach to the knee. The fat pads were excised. A proximal-medial tibial subperiosteal soft tissue releasewas completed. We then completed a posterior patellar cut of approximately 9 mm followed by preparation of the patella for the patellar onlay button. The patellar protector was then positioned. We thendrilled the femoral canal followed by placement of the 6-degree valgus distal femoral cutting guide.We then completed our distal femoral cuts. The femur was then sized followed by placement of the 4-in-1 cutting block. We then completed our anterior, posterior, and chamfer femoral cuts. We then placed the extramedullary proximal tibia cutting guide. This guide in conjunction with the anterior drop mary kate and 2- 10 resection guide were used to position the guide appropriately. We then completed our proximal tibial cuts. The flexion and extension gaps were sized, and confirmed to be appropriate. We thenexcised the remainder of the menisci and the posterior osteophytes as well as released the posteriorcapsule. We then prepared the proximal tibia with the reamer and V cutting jig. We then placed the trial components. The knee was found to be stable through full functional range of motion. The trial implants were removed. The joint was copiously irrigated followed by the placement of the implants with methylmethacrylate cement. Note that a local anesthetic multimodal cocktail was placed in the posterior capsule prior to placement of the MC poly component and in the anterior soft tissue after closure of the extensor mechanism. The cement was allowed to cure with the knee in full extension. The joint was then copiously irrigated, followed by closure of the extensor mechanism with interrupted No. 1 Vicryl. The deep subcutaneous tissue was closed with No. 1 Vicryl, superficial subcutaneous was closed with 2-0 Vicryl, and the skin was closed with stratofix suture and and dermabond prineo. The wound was dressed with standard gauze dressings and jose armando wrap. The patient tolerated the procedure without difficulty and was taken to recovery room in stable condition. The skilled assistance of a diploma medical assistant (MARCIANO) was necessary for the following activities: positioning of the patient, assistance with the procedure including retraction, assistance with wound closure, dressing/splint application. Of note, no qualified vice president precision market insights was available for the ope rative procedure. Tourniquet Time: Total Tourniquet Time Documented: Leg Upper (Right) - 62 minutes Total: Leg Upper (Right) - 62 minutes Implants: Implant Name Type Inv. Item Serial No. Education Site Manager Lot No. LRB No. Used Action CMNT BONE CMNT-R 1X40 N [id number] [facility] [id number] Tissue Synthetic CMNT BONE CMNT-R 1X40 N [id number] [facility] BRANDON [id number] Right 1 Implanted CMNT BONE CMNT-R 1X40 N [id number] [facility] [id number] Tissue Synthetic CMNT BONE CMNT-R 1X40 N [id number] [facility] [employer]ON [id number] Right 1 Implanted KNEE FEM PSN [id number] N [facility] - [id number] Total Jt Knee KNEE FEM PSN [id number] N [facility] [employer]ON [id number] Right 1 Wasted KNEE TIB STEM PSN 5D RT SZG N [facility] - [id number] Total Jt Knee KNEE TIB STEM PSN 5D RT SZG N [facility] [employer]ON [id number] Right 1 Implanted KNEE PSN PTLA ALL PE VE 41MM N [id number] [facility] - [id number] Total Jt Knee KNEE PSN PTLA ALL PE VE41MM N [facility] [employer] [id number] Right 1 Implanted KNEE PSN ASF MC [id number] G N [facility] - [id number] Total Jt Knee KNEE PSN ASF MC [id number] G N [facility] [employer] [id number] Right 1 Implanted KNEE FEM PSN CRCMNTNARW [id number] N [facility] - [id number] Total Jt Knee KNEE FEM PSN CRCMNTNARW [id number] N [facility] [employer]ON [id number] Right 1 Implanted Estimated Blood Loss: minimal Discharge/Follow-Up Plan:admission to hospital Jensen - Tory Birmingham, PHARM D - 04/17/2021 10:16 AM CDT 04/17/2021 10:16 AM CDT - Patient was seen by pharmacy. HOME MEDICATIONS have been reconciled and updated to match the patient's home usage. Medication reconciliation: No medications were available for review for medication reconciliation. Patient opts in for meds-to-bed at discharge. Medication adherence: 1. Last dose time for turmeric and milk thistle reported to nurse to communicate to anesthesiology prior to surgery given last dose yesterday morning at 0700 - RN notified. 2. Patient no longer taking tamsulosin per his own choice and no longer has nitroglycerin PRN at home. Cryptologic Supervisor to follow-up with PCP - message sent. Provided education regarding importance of taking prescribed medications as directed and following up with provider. 3. Patient reports to using a nasal spray [id number] but doesn't recall what it is. Needs follow-up to update at next visit. Medications added: None Medications removed: Benzonatate (therapy completed) Doxycycline (therapy completed) Pantoprazole (switched to omeprazole in past) Sildenafil 20 mg (changed to 100 mg tablets in past) Medications changed: Updated turmeric dose per patient Updated milk thistle dose per patient Updated MVT dose per patient Prior to Admission Medications Prescriptions Last Dose Informant Patient Reported? Taking? Multiple Vitamin (MULTIVITAMIN) tablet 04/16/2021 at 0700 Self Yes Yes Sig: Take 2 tablets by mouth 1 time per day Turmeric (QC TUMERIC COMPLEX PO) 04/16/2021 at 0700 Self Yes Yes Sig: Take 2,000 mg by mouth 1 time per day atorvaSTATin (LIPITOR) 20 mg tablet 04/16/2021 at 1700 Self Yes Yes Sig: Take 20 mg by mouth 1 time per day escitalopram (LEXAPRO) 20 mg tablet 04/16/2021 at 1700 Self No Yes Sig: TAKE 1 TABLET BY MOUTH EVERY NIGHT AT BEDTIME Patient taking differently: Take 20 mg by mouth every night at bedtime losartan 25 mg tablet 04/16/2021 at 0700 No Yes Sig: Take 1 tablet (25 mg) by mouth 1 time per day milk thistle 250 MG CAPS 04/16/2021 at 0700 Self Yes Yes Sig: Take 2 capsules by mouth 1 time per day nitroglycerin (NITROSTAT) 0.4 mg sublingual tablet at not taking No Yes Sig: Dissolve 1 tablet (0.4 mg) under the tongue Every 5 minutes as needed for chest pain May repeatevery 5 minutes for a total of 3 doses. omeprazole (PRILOSEC) 20 mg capsule 04/16/2021 at 0700 Yes Yes Sig: Take 20 mg by mouth 1 time a day in the morning Take as directed sildenafil (VIAGRA) 100 MG tablet Unknown at Unknown time No Yes Sig: Take 1 tab one hour prior to anticipated sexual activity. Patient taking differently: Take 100 mg by mouth 1 time a day as needed (one hour prior to anticipated sexual activity.) tamsulosin (FLOMAX) 0.4 mg capsule at not taking Yes Yes Sig: Take 0.4 mg by mouth Take as directed Facility-Administered Medications: None Tory Birmingham, PHARM D documented in this encounter Plan of Treatment Date Type Specialty Care Team Description 04/29/2021 Office Visit Orthopedics Zi Diaz PA [address] [place] [address] [phone] 05/30/2021 Office Visit Orthopedics Joaquín Robles MD [address] [place] [address] [phone] Name Type Priority Associated Diagnoses Order S chedule COMPLETE BLOOD COUNT WITH Lab Routine Ea rly AM draw for labs DIFFERENTIAL until discontin ued starting 2020, 4 completed COMPREHENSIVE METABOLIC Lab Routine Don y AM draw for labs PANEL until discontin ued starting 2020, 4 completed documented as of this encounter Implants Implanted Type Area Education Site Manager Device Shelf Model / Identifier Expiration Date Ser ial / Lot Cmnt Vertaplex Hv Twin Pk N 406-08/03/2013 Bone/Tiss THORACIC MARIAN 02/26/2015 [id number] / Implanted: 08/03/2013 by Ramírez Perez MD (Quantity not on file) ue/A llogr / Explanted: (Quantity not on file) aft [id number] Description:T6 Vertebroplasty Plate Humr Prox 3.5 5hl 114mm N 241.903 Ea - Sn/A Ortho Other Right: SHOULDER J&J DEPUY SYNTHES 241.903 / Implanted: Qty: 1 on 03/27/2015 by Joaquín Robles MD at [facility] N/A / N/A Description:Implant verified by Dr. Robles and OR staff. Screw Lock Remedios Full 3.7x40mm N 02.240.040 Ea - Sn/A Ortho O ther Right: SHOULDER J&J DEPUY SYNTHES 02.240.040 / Implanted: Qty: 1 on 03/27/2015 by Joaquín Robles MD at [facility] N/A / N/A Description:Implant verified by Dr. Robles and OR staff. Screw Lock Remedios Full 3.7x42mm N 02.240.042 Ea - Sn/A Ortho O ther Right: SHOULDER J&J DEPUY SYNTHES 02.240.042 / Implanted: Qty: 1 on 03/27/2015 by Joaquín Robles MD at [facility] N/A / N/A Description:Implant verified by Dr. Robles and OR staff. Screw Lock Remedios Full 3.7x42mm N 02.240.042 Ea - Sn/A Ortho O ther Right: SHOULDER J&J DEPUY SYNTHES 02.240.042 / Implanted: Qty: 1 on 03/27/2015 by Joaquín Robles MD at [facility] N/A / N/A Description:Implant verified by Dr. Robles and OR staff. Screw Lock Remedios Full 3.7x42mm N 02.240.042 Ea - Sn/A Ortho O ther Right: SHOULDER J&J DEPUY SYNTHES 02.240.042 / Implanted: Qty: 1 on 03/27/2015 by Jaoquín Robles MD at [facility] N/A / N/A Description:Implant verified by Dr. Robles and OR staff. Screw Lock Remedios Full 3.7x46mm N 02.240.046 Ea - Sn/A Ortho O ther Right: SHOULDER J&J DEPUY SYNTHES 240.046 / Implanted: Qty: 1 on 03/27/2015 by Joaquín Robles MD at [facility] N/A / N/A Description:Implant verified by Dr. Robles and OR staff. Screw Lock Remedios Full 3.7x48mm N 240.048 Ea - Sn/A Ortho O ther Right: SHOULDER J&J DEPUY SYNTHES [id number] / Implanted: Qty: 1 on 03/27/2015 by Joaquín Robles MD at [facility] N/A / N/A Description:Implant verified by Dr. Robles and OR staff. Screw Saúl Slftp 3.5x32mm N 204.832 Ea - Sn/A Ortho Other Ri ght: SHOULDER J&J DEPUY SYNTHES 204.832 / Implanted: Qty: 3 on 03/27/2015 by Joaquín oRbles MD at [facility] N/A / N/A Description:Implant verified by Dr. Robles and OR staff. Screw Saúl Slftp 3.5x34mm N 204.834 Ea - Sn/A Ortho Other Ri ght: SHOULDER J&J DEPUY SYNTHES 204.834 / Implanted: Qty: 1 on 03/27/2015 by Joaquín Robles MD at [facility] N/A / N/A Description:Implant verified by Dr. Robles and OR staff. Cmnt Bone Cmnt-R 1x40 N [id number] Ea1 - [id number] Tissue Synthe tic Right: KNEE BRANDON 11/28/2024 [id number] / Implanted: Qty: 1 on 04/17/2021 by Joaquín Robles MD at [facility] / [id number] Cmnt Bone Cmnt-R 1x40 N [id number] Ea1 - [id number] Tissue Synthe tic Right: KNEE BRANDON 06/28/2025 [id number] / Implanted: Qty: 1 on 04/17/2021 by Joaquín Robles MD at [facility] / [id number] Knee Tib Stem Psn 5d Rt Szg N [id number] Ea1 - [id number] Total Jt Knee Right: KNEE BRANDON 07/04/2030 [id number] / Implanted: Qty: 1 on 04/17/2021 by Joaquín Robles MD at [facility] / [id number] Knee Psn Ptla All Pe Ve 41mm N [id number] Ea1 - [id number] Total Jt Knee Right: KNEE BRANDON 06/28/2024 [id number] / Implanted: Qty: 1 on 04/17/2021 by Joaquín Robles MD at [facility] / [id number] Knee Psn Asf Mc [id number] G N [id number] Ea - [id number] Total Jt Knee Right: KNEE BRANDON 12/01/2025 [id number] / Implanted: Qty: 1 on 04/17/2021 by Joaquín Robles MD at [facility] / [id number] Knee Fem Psn Crcmntnarw [id number] N [id number] Ea - [id number] Total Jt Knee Right: KNEE BRANDON 2024 [id number] / Implanted: Qty: 1 on 04/17/2021 by Joaquín Rolbes MD at [facility] / [id number] documented as of this encounter Procedures Procedure Name Priority Date/Time Associated Diagnosis Comme nts SARS-COV-2, INFLUENZA STAT 04/25/2021 9:26 Re sults for this A+B, AND/OR RSV AM CDT procedure ar e in NUCLEIC ACID TESTING the res ults PANEL section. LAB ONLY-COMPLETE Routine 04/25/2021 5:31 Result s for this BLOOD COUNT WITH AM CDT procedure a re in DIFFERENTIAL the results section. COMPREHENSIVE Routine 04/25/2021 5:31 Results fo r this METABOLIC PANEL AM CDT procedure ar e in the results section. LAB ONLY-COMPLETE Routine 04/25/2021 5:31 Result s for this BLOOD COUNT WITH AM CDT procedure a re in DIFFERENTIAL the results section. LAB ONLY-COMPLETE Routine 04/24/2021 6:05 Result s for this BLOOD COUNT WITH AM CDT procedure a re in DIFFERENTIAL the results section. COMPREHENSIVE Routine 04/24/2021 6:05 Results fo r this METABOLIC PANEL AM CDT procedure ar e in the results section. LAB ONLY-COMPLETE Routine 04/24/2021 6:05 Result s for this BLOOD COUNT WITH AM CDT procedure a re in DIFFERENTIAL the results section. GLUCOSE BY METER, Routine 04/23/2021 6:14 Result s for this POCT AM CDT procedure are i n the results section. LAB ONLY-COMPLETE Routine 04/23/2021 5:57 Result s for this BLOOD COUNT WITH AM CDT procedure a re in DIFFERENTIAL the results section. COMPREHENSIVE Routine 04/23/2021 5:57 Results fo r this METABOLIC PANEL AM CDT procedure ar e in the results section. LAB ONLY-COMPLETE Routine 04/23/2021 5:57 Result s for this BLOOD COUNT WITH AM CDT procedure a re in DIFFERENTIAL the results section. GLUCOSE BY METER, Routine 04/22/2021 9:04 Result s for this POCT PM CDT procedure are i n the results section. GLUCOSE BY METER, Routine 04/22/2021 5:03 Result s for this POCT PM CDT procedure are i n the results section. CLOSTRIDIUM DIFFICILE Routine 04/22/2021 3:15 Re sults for this BY NAAT (PCR/LAMP) PM CDT procedure are in the results section. GLUCOSE BY METER, Routine 04/22/2021 11:06 Result s for this POCT AM CDT procedure are i n the results section. XRAY ABDOMEN 1 VIEW Routine 04/22/2021 10:31 Resu lts for this AM CDT procedure are i n the results section. LAB ONLY-COMPLETE Routine 04/22/2021 9:34 Result s for this BLOOD COUNT WITH AM CDT procedure a re in DIFFERENTIAL the results section. COMPREHENSIVE Routine 04/22/2021 9:34 Results fo r this METABOLIC PANEL AM CDT procedure ar e in the results section. LAB ONLY-COMPLETE Routine 04/22/2021 9:34 Result s for this BLOOD COUNT WITH AM CDT procedure a re in DIFFERENTIAL the results section. GLUCOSE BY METER, Routine 04/22/2021 6:01 Result s for this POCT AM CDT procedure are i n the results section. GLUCOSE BY METER, Routine 04/21/2021 9:24 Result s for this POCT PM CDT procedure are i n the results section. GLUCOSE BY METER, Routine 04/21/2021 4:42 Result s for this POCT PM CDT procedure are i n the results section. URINE DIP, REFLEX TO Routine 04/21/2021 10:03 Res ults for this MICROSCOPIC, REFLEX AM CDT procedur e are in TO CULTURE the results section. GLUCOSE BY METER, Routine 04/21/2021 8:57 Result s for this POCT AM CDT procedure are i n the results section. GLUCOSE BY METER, Routine 04/21/2021 6:11 Result s for this POCT AM CDT procedure are i n the results section. GLUCOSE BY METER, Routine 04/20/2021 9:22 Result s for this POCT PM CDT procedure are i n the results section. GLUCOSE BY METER, Routine 04/20/2021 5:34 Result s for this POCT PM CDT procedure are i n the results section. GLUCOSE BY METER, Routine 04/20/2021 11:08 Result s for this POCT AM CDT procedure are i n the results section. GLUCOSE BY METER, Routine 04/20/2021 5:54 Result s for this POCT AM CDT procedure are i n the results section. GLUCOSE BY METER, Routine 04/19/2021 5:15 Result s for this POCT PM CDT procedure are i n the results section. GLUCOSE BY METER, Routine 04/19/2021 11:23 Result s for this POCT AM CDT procedure are i n the results section. XRAY ABDOMEN 1 VIEW Routine 04/19/2021 10:02 Resu lts for this AM CDT procedure are i n the results section. COLLECT AND HOLD Routine 04/19/2021 5:42 Results for this LAVENDER (EDTA) TOP AM CDT procedur e are in TUBE the results section. BASIC METABOLIC PANEL Routine 04/19/2021 5:42 Re sults for this AM CDT procedure are i n the results section. GLUCOSE BY METER, Routine 04/19/2021 5:28 Result s for this POCT AM CDT procedure are i n the results section. GLUCOSE BY METER, Routine 04/18/2021 8:59 Result s for this POCT PM CDT procedure are i n the results section. GLUCOSE BY METER, Routine 04/18/2021 5:12 Result s for this POCT PM CDT procedure are i n the results section. GLUCOSE BY METER, Routine 04/18/2021 11:16 Result s for this POCT AM CDT procedure are i n the results section. COLLECT AND HOLD Routine 04/18/2021 5:20 Results for this GREEN TOP TUBE AM CDT procedure are in the results section. HEMOGLOBIN Routine 04/18/2021 5:20 Results for this AM CDT procedure are i n the results section. BASIC METABOLIC PANEL STAT 04/18/2021 5:20 Re sults for this AM CDT procedure are i n the results section. XRAY KNEE 1-2 VIEWS Routine 04/17/2021 1:33 Resu lts for this RT PM CDT procedure are i n the results section. TISSUE EXAM Routine 04/17/2021 12:01 Primary osteoarthritis R esults for this PM CDT of both knees procedure are in the results section. ARTHROPLASTY KNEE 04/17/2021 10:53 Primary osteoarthri tis AM CDT of both knees Special Needs *X* CHON, BMI 47.62, Overnigh t Stay, Outpatient per Insurance documented in this encounter Results SARS-COV-2, INFLUENZA A+B, AND/OR RSV NUCLEIC ACID TESTING PANEL (04/25/2021 9:26 AM CDT) Pathologist Sig nature SARS-CoV-2 Not Detected Not Detected [facility] Specimen Respiratory - Nasopharyngeal swab (speci men) Narrative Performed At Please read entire report. Results for Influenza A and B or [facility] RSV may also be available depending on which viruses y our provider selected for testing. Your Covid-19 test is negative: 1)Avoiding close contact is s till recommended. 2)Cover your coughs and snee zes. 3)Wash your hands often with soap and wate r for at least 20 seconds or use an alcohol-based patient relations liaison containing over 60% alcohol. Avoid touch ing your face. 4)Avoid sharing personal household items, including dishes, cups, utensils, towels, clothing, or bedding. These items should be cleaned thoroughly with soap and water after use. Clean all "high touch" surfaces i n your home daily. 5) Monitor your symptoms. Contact your provider if you are feeling worse. If you have shortness of breath or difficulty breathing, call 911. This assay is for in vitro diagnostic use under FDA Emergency Use Authorization only. Optimal performance of this test requires appropriate specimen collection, storage, and transport to the medical center enterprise site. Detection of SARS-CoV-2 RNA may be affected by sample collection methods, patient factors (eg, presence of symptoms), and/or stage of infection. False-negative results may arise from degradation of v iral RNA during shipping/storage. Results should be interpreted by a trained professiona l in conjunction with the patient s history and clinical signs and symptoms, and epidemiological risk factors. Negative (Not Detected) results do not preclude infect ion with the SARS-CoV-2 virus and should not be the sole b asis of patient treatment/management or public health decis ion. Follow up testing should be performed according to the current CDC recommendations. This test was performed by polymerase chain reaction ( PCR) on the GeneXpert instrument. Performing Organization Address City/State/ZIP Code Phon e Number [facility] [address] [place] [address] [place] [address] [phone] LAB ONLY-COMPLETE BLOOD COUNT WITH DIFFERENTIAL (04/25/2021 5:31 AM CDT) WBC 7.9 4.0 - 11.0 K/uL [facility] RBC 4.40 4.40 - 5.80 [facility] Hemoglobin 12.8 (L) 13.5 - 17.5 [facility] g/dL [place] Hematocrit 40.6 40.0 - 50.0 % [facility] MCV 92.3 80.0 - 98.0 fL [facility] MCH 29.1 25.5 - 34.0 pg [facility] MCHC 31.5 31.5 - 36.5 [facility] g/dL [place] RDW-CV 14.9 11.5 - 15.5 % [facility] RDW-SD 48.3 35.5 - 50.0 fl [facility] Platelet Count 148 140 - 400 K/uL [facility] MPV 11.0 8.5 - 12.0 fL [facility] Seg Neut Absolute 4.6 1.8 - 8.0 K/uL [facility] Lymphocytes Absolute 1.9 0.8 - 4.1 K/uL [facility] Monocytes Absolute 1.0 0.0 - 1.0 K/uL [facility] Eosinophils Absolute 0.3 0.0 - 0.7 K/uL [facility] Basophil Absolute 0.0 0.0 - 0.2 K/uL [facility] Neutrophils Abs. 4,600 /uL [facility] (Segs and Bands) [place] Neutrophils Percent 58.6 % [facility] Lymphocytes Percent 24.0 % [facility] Monocytes Percent 12.5 % [facility] Eosinophils Percent 3.9 % [facility] Basophil Percent 0.1 % [facility] Specimen Blood - Blood specimen (specimen) Performing Organization Address City/State/ZIP Code Phon e Number [facility] [address] [place] [address] COMPREHENSIVE METABOLIC PANEL (04/25/2021 5:31 AM CDT) Glucose 117 (H) 70 - 100 mg/dL [facility] BUN 13 6 - 22 mg/dL [facility] Creatinine 0.70 (L) 0.80 - 1.30 [facility] mg/dL [place] BUN/Creatinine Ratio 18.6 10.0 - 25.0 [facility] Sodium 137 135 - 145 meq/L [facility] Potassium 4.1 3.5 - 5.3 meq/L [facility] Chloride 104 99 - 110 meq/L [facility] CO2 25 20 - 29 meq/L [facility] Anion Gap with K 12 6 - 20 meq/L [facility] Calcium 8.5 8.5 - 10.5 [facility] mg/dL [place] Protein Total 5.7 (L) 6.0 - 8.2 g/dL [facility] Albumin 3.2 (L) 3.5 - 5.0 g/dL [facility] Alkaline Phosphatase 71 30 - 150 U/L [facility] AST - SGOT 32 0 - 35 U/L [facility] ALT - SGPT 34 0 - 55 U/L [facility] Bilirubin Total 1.4 (H) 0.2 - 1.2 mg/dL [facility] Corrected Calcium 9.1 8.5 - 10.5 [facility]/dL [place] Age 71 Years [facility] eGFR Non- >90 >=60 [facility] Icelandic mL/min/1.73m2 [place] eGFR >90 >=60 [facility] mL/min/1.73m2 [place] Specimen Blood - Blood specimen (specimen) Performing Organization Address City/[facility]/ZIP Code Phon e Number [facility] [address] [place] [address] LAB ONLY-COMPLETE BLOOD COUNT WITH DIFFERENTIAL (04/24/2021 6:05 AM CDT) [facility] WBC 8.2 4.0 - 11.0 K/uL [facility] RBC 4.53 4.40 - 5.80 [facility] Hemoglobin 13.4 (L) 13.5 - 17.5 [facility] gdL [place] Hematocrit 42.0 40.0 - 50.0 % [facility] MCV 92.7 80.0 - 98.0 fL [facility] MCH 29.6 25.5 - 34.0 pg [facility] MCHC 31.9 31.5 - 36.5 [facility] gdL [place] RDW-CV 15.0 11.5 - 15.5 % [facility] RDW-SD 48.7 35.5 - 50.0 fl [facility] Platelet Count 122 (L) 140 - 400 K/uL [facility] MPV 11.4 8.5 - 12.0 fL [facility] Seg Neut Absolute 4.8 1.8 - 8.0 K/uL [facility] Lymphocytes Absolute 2.0 0.8 - 4.1 K/uL [facility] Monocytes Absolute 1.0 0.0 - 1.0 K/uL [facility] Eosinophils Absolute 0.2 0.0 - 0.7 K/uL [facility] Basophil Absolute 0.0 0.0 - 0.2 K/uL [facility] Neutrophils Abs. 4,800 /uL [facility] (Segs and Bands) [place] Neutrophils Percent 58.9 % [facility] Lymphocytes Percent 24.7 % [facility] Monocytes Percent 12.7 % [facility] Eosinophils Percent 2.9 % [facility] Basophil Percent 0.1 % [facility] Specimen Blood - Blood specimen (specimen) Performing Organization Address City/State/ZIP Code Phon e Number [facility] [address] [place] [address] COMPREHENSIVE METABOLIC PANEL (04/24/2021 6:05 AM CDT) [facility] Glucose 126 (H) 70 - 100 mg/dL [facility] BUN 15 6 - 22 mg/dL [facility] Creatinine 0.76 (L) 0.80 - 1.30 [facility] mg/dL [place] BUN/Creatinine Ratio 19.7 10.0 - 25.0 [facility] Sodium 138 135 - 145 meq/L [facility] Potassium 4.3 3.5 - 5.3 meq/L [facility] Chloride 104 99 - 110 meq/L [facility] CO2 27 20 - 29 meq/L [facility] Anion Gap with K 11 6 - 20 meq/L [facility] Calcium 9.0 8.5 - 10.5 [facility] mg/dL [place] Protein Total 6.4 6.0 - 8.2 g/dL [facility] Albumin 3.6 3.5 - 5.0 g/dL [facility] Alkaline Phosphatase 81 30 - 150 U/L [facility] AST - SGOT 40 (H) 0 - 35 U/L [facility] ALT - SGPT 43 0 - 55 U/L [facility] Bilirubin Total 1.5 (H) 0.2 - 1.2 mg/dL [facility] Corrected Calcium 9.3 8.5 - 10.5 [facility] mg/dL [place] Age 71 Years [facility] eGFR Non- >90 >=60 [facility] Icelandic mL/min/1.73m2 [place] eGFR >90 >=60 [facility] mL/min/1.73m2 [place] Specimen Blood - Blood specimen (specimen) Performing Organization Address City/[facility]/ZIP Code Phon e Number [facility] [address] [place] [address] GLUCOSE BY METER, POCT (04/23/2021 6:14 AM CDT) [facility] Glucose POC 111 (H) 70 - 99 mg/dL [facility] Specimen Blood - Blood specimen (specimen) Performing Organization Address City/[facility]/ZIP [facility] Phon e Number [facility] [address] [place] [address] LAB ONLY-COMPLETE BLOOD COUNT WITH DIFFERENTIAL (04/23/2021 5:57 AM CDT) [facility] WBC 6.5 4.0 - 11.0 K/uL [facility] RBC 4.03 (L) 4.40 - 5.80 [facility] M/[facility] Hemoglobin 12.0 (L) 13.5 - 17.5 [facility] gdL [place] Hematocrit 37.5 (L) 40.0 - 50.0 % [facility] MCV 93.1 80.0 - 98.0 fL [facility] MCH 29.8 25.5 - 34.0 pg [facility] MCHC 32.0 31.5 - 36.5 [facility] gdL [place] RDW-CV 14.9 11.5 - 15.5 % [facility] RDW-SD 48.2 35.5 - 50.0 fl [facility] Platelet Count 147 140 - 400 K/uL [facility] MPV 10.7 8.5 - 12.0 fL [facility] Seg Neut Absolute 4.0 1.8 - 8.0 K/uL [facility] Lymphocytes Absolute 1.2 0.8 - 4.1 K/uL [facility] Monocytes Absolute 0.9 0.0 - 1.0 K/uL [facility] Eosinophils Absolute 0.3 0.0 - 0.7 K/uL [facility] Basophil Absolute 0.0 0.0 - 0.2 K/uL [facility] Neutrophils Abs. 4,000 /uL [facility] (Segs and Bands) [place] Neutrophils Percent 62.0 % [facility] Lymphocytes Percent 19.1 % [facility] Monocytes Percent 14.4 % [facility] Eosinophils Percent 4.0 % [facility] Basophil Percent 0.2 % [facility] Specimen Blood - Blood specimen (specimen) Performing Organization Address City/State/ZIP Code Phon e Number [facility] [address] [place] [address] COMPREHENSIVE METABOLIC PANEL (04/23/2021 5:57 AM CDT) [facility] Glucose 115 (H) 70 - 100 mg/dL [facility] BUN 15 6 - 22 mg/dL [facility] Creatinine 0.70 (L) 0.80 - 1.30 [facility] mg/dL [place] BUN/Creatinine Ratio 21.4 10.0 - 25.0 [facility] Sodium 138 135 - 145 meq/L [facility] Potassium 3.9 3.5 - 5.3 meq/L [facility] Chloride 105 99 - 110 meq/L [facility] CO2 26 20 - 29 meq/L [facility] Anion Gap with K 11 6 - 20 meq/L [facility] Calcium 8.2 (L) 8.5 - 10.5 [facility] mg/dL [place] Protein Total 5.7 (L) 6.0 - 8.2 g/dL [facility] [facility] Albumin 3.2 (L) 3.5 - 5.0 g/dL [facility] Alkaline Phosphatase 66 30 - 150 U/L [facility] AST - SGOT 46 (H) 0 - 35 U/L [facility] ALT - SGPT 44 0 - 55 U/L [facility] Bilirubin Total 1.7 (H) 0.2 - 1.2 mg/dL [facility] Corrected Calcium 8.8 8.5 - 10.5 [facility] mg/dL [place] Age 71 Years [facility] eGFR Non- >90 >=60 [facility] mL/min/1.73m2 [place] eGFR >90 >=60 [facility] mL/min/1.73m2 [place] Specimen Blood - Blood specimen (specimen) Performing Organization Address City/[facility]/ZIP Code Phon e Number [facility] [address] [place], [place] [address] GLUCOSE BY METER, POCT (04/22/2021 9:04 PM CDT) Pathologist Sig nature Glucose POC 109 (H) 70 - 99 mg/dL [facility] Specimen Blood - Blood specimen (specimen) Performing Organization Address City/[facility]/ZIP Code Phon e Number [facility] [address] [place] [address] GLUCOSE BY METER, POCT (04/22/2021 5:03 PM CDT) Pathologist Sig nature Glucose POC 120 (H) 70 - 99 mg/dL [facility] Specimen Blood - Blood specimen (specimen) Performing Organization Address City/[facility]/ZIP Code Phon e Number [facility] [address] [place] [address] CLOSTRIDIUM DIFFICILE BY NAAT (PCR/LAMP) (04/22/2021 3:15 PM CDT) C difficile Not Detected Not Detected [facility] Toxin B Gene NAD [facility] 027/NAP1/BI Presumptive Presumptive [facility] Negative Negative [facility] Specimen Feces - Stool specimen (specimen) Narrative Performed At Detection of 027/NAP1/BI strains of C. difficile is [facility] presumptive and solely for epidemiological purposes. It is not intended to guide or monitor treatment for C. difficile infections. Treatment remains the same. This test was performed by polymerase chain reaction (PCR) on the GeneXpert instrument. Performing Organization Address City/State/ZIP Code Phon e Number [facility] [address] [place] [address] LABORATORY [address] GLUCOSE BY METER, POCT (04/22/2021 11:06 AM CDT) Pathologist Sig nature Glucose POC 139 (H) 70 - 99 mg/dL [facility] Specimen Blood - Blood specimen (specimen) Performing Organization Address City/[facility]/ZIP Code Phon e Number [facility] [address] [place] [phone] XRAY ABDOMEN 1 VIEW (04/22/2021 10:31 AM CDT)Only the most recent of2 results within the time period is included. Specimen Narrative Performed At [facility] Patient Name: MARKEL LARES Date of : 1950 Procedure: XRAY ABDOMEN 1 VIEW Date of Service: 04/22/2021 EXAM: XRAY ABDOMEN 1 VIEW INDICATION:nausea, diarrhea COMPARISON(S): 04/19/2021 FINDINGS: Mild small bowel dilatation mid to inferior left abdom en, 4.9 cm greatest diameter mildly decreased (previous 6 cm). No intraperitoneal free air. No abnormal calcific foci. No other interval change. IMPRESSION: Mild small bowel dilatation, mildly improved which may represent resolving low-grade small bowel obstruction versus camilla namic ileus which can be seen with inflammatory and/or infectious proces s. If clinical suspicion exists for persistent bowel obstruction foll ow-up abdomen series would at least be recommended. Finalized by: Tor Torres MD on 03/30 10:38 AM CDT Patient/Procedure Information: [facility] MRN/BRITTANY: [id number] Order Number: [id number] Accession Number: [id number] Ordering Provider: DALE FORTE Authorizing Provider: DALE FORTE Procedure Note Ani Swansonres - 04/22/2021 10:40 AM CDT Patient Name: MARKEL LARES Date of : 1950 Procedure: XRAY ABDOMEN 1 VIEW Date of Service: 04/22/2021 EXAM: XRAY ABDOMEN 1 VIEW INDICATION:nausea, diarrhea COMPARISON(S): 04/19/2021 FINDINGS: Mild small bowel dilatation mid to infer ior left abdomen, 4.9 cm greatest diameter mildly decreased (previous 6 cm). No intraperitoneal free air. No abnormal calcific foci. No other interval change. IMPRESSION: Mild small bowel dilatation, mildly impr susanna which may represent resolving low- grade small bowel obstruction versus adynamic ileus which can be seen with inflammatory and/or infectious process. If clinical suspicion exists for persistent bowel obstruction follow- up abdomen series would at least be recommended. Finalized by: Tor Torres MD on 03/30 10:38 AM CDT Patient/Procedure Information: [facility] MRN/BRITTANY: [id number] Order Number: [id number] Accession Number: [id number] Ordering Provider: DALE FORTE Authorizing Provider: DALE FORTE Performing Organization Address City/State/ZIP Code Phon e Number [facility] LAB ONLY-COMPLETE BLOOD COUNT WITH DIFFERENTIAL (04/22/2021 9:34 AM CDT) WBC 9.8 4.0 - 11.0 K/uL [facility] RBC 4.40 4.40 - 5.80 [facility] M/[facility] Hemoglobin 13.1 (L) 13.5 - 17.5 [facility] g/dL [place] Hematocrit 40.6 40.0 - 50.0 % [facility] MCV 92.3 80.0 - 98.0 fL [facility] MCH 29.8 25.5 - 34.0 pg [facility] MCHC 32.3 31.5 - 36.5 [facility] g/dL [place] RDW-CV 14.8 11.5 - 15.5 % [facility] RDW-SD 48.0 35.5 - 50.0 fl [facility] Platelet Count 186 140 - 400 K/uL [facility] MPV 10.6 8.5 - 12.0 fL [facility] Seg Neut Absolute 8.1 (H) 1.8 - 8.0 K/uL [facility] Lymphocytes Absolute 0.7 (L) 0.8 - 4.1 K/uL [facility] Monocytes Absolute 0.9 0.0 - 1.0 K/uL [facility] Eosinophils Absolute 0.1 0.0 - 0.7 K/uL [facility] Basophil Absolute 0.0 0.0 - 0.2 K/uL [facility] Neutrophils Abs. 8,100 /uL [facility] (Segs and Bands) [place] Neutrophils Percent 82.1 % [facility] Lymphocytes Percent 6.9 % [facility] Monocytes Percent 9.5 % [facility] Eosinophils Percent 1.2 % [facility] Basophil Percent 0.1 % [facility] Specimen Blood - Blood specimen (specimen) Performing Organization Address City/State/ZIP Code Phon e Number [facility] [address] [place] [address] COMPREHENSIVE METABOLIC PANEL (04/22/2021 9:34 AM CDT) Pathologist Sig nature Glucose 140 (H) 70 - 100 mg/dL [facility] BUN 17 6 - 22 mg/dL [facility] Creatinine 0.81 0.80 - 1.30 [facility] mg/dL [place] BUN/Creatinine Ratio 21.0 10.0 - 25.0 [facility] Sodium 137 135 - 145 meq/L [facility] Potassium 4.1 3.5 - 5.3 meq/L [facility] Chloride 100 99 - 110 meq/L [facility] CO2 28 20 - 29 meq/L [facility] Anion Gap with K 13 6 - 20 meq/L [facility] Calcium 8.7 8.5 - 10.5 [facility] mg/dL [place] Protein Total 6.4 6.0 - 8.2 g/dL [facility] Albumin 3.6 3.5 - 5.0 g/dL [facility] Alkaline Phosphatase 75 30 - 150 U/L [facility] AST - SGOT 46 (H) 0 - 35 U/L [facility] ALT - SGPT 40 0 - 55 U/L [facility] Bilirubin Total 1.9 (H) 0.2 - 1.2 mg/dL [facility] Corrected Calcium 9.0 8.5 - 10.5 [facility] mg/dL [place] Age 71 Years [facility] eGFR Non- >90 >=60 [facility] Icelandic mL/min/1.73m2 [place] eGFR >90 >=60 [facility] mL/min/1.73m2 [place] Specimen Blood - Blood specimen (specimen) Performing Organization Address City/[facility]/ZIP Code Phon e Number [facility] [address] [place] [address] GLUCOSE BY METER, POCT (04/22/2021 6:01 AM CDT) Pathologist Sig nature Glucose POC 161 (H) 70 - 99 mg/dL [facility] Specimen Blood - Blood specimen (specimen) Performing Organization Address [facility]/ZIP Code Phon e Number [facility] [address] [place], [place] [address] GLUCOSE BY METER, POCT (04/21/2021 9:24 PM CDT) Pathologist Sig nature Glucose POC 132 (H) 70 - 99 mg/dL [facility] Specimen Blood - Blood specimen (specimen) Performing Organization Address City/[facility]/ZIP Code Phon e Number [facility] [address] [place], [place] [address] GLUCOSE BY METER, POCT (04/21/2021 4:42 PM CDT) Pathologist Sig nature Glucose POC 142 (H) 70 - 99 mg/dL [facility] Specimen Blood - Blood specimen (specimen) Performing Organization Address City/[facility]/ZIP Code Phon e Number [facility] [address] [place], [place] [phone] URINE DIP, REFLEX TO MICROSCOPIC, REFLEX TO CULTURE (04/21/2021 10:03 AM CDT) Color Urine Yellow Selene, Dark [facility] Yellow, Straw, UNIVERSITY Yellow, Colorless Clarity Urine Clear Clear [facility] Glucose Urine Negative Negative [facility] Bilirubin Urine Negative Negative [facility] Ketones Urine 5 mg/dL Negative, 5 [facility] mg/dL, 10 mg/dL [place] Specific [place] 1.015 1.002 - 1.030 [facility] Blood Urine Negative Negative [facility] PH Urine 5.0 5.0, 5.5, 6.0, [facility] 6.5, 7.0, 7.5, [place] 8.0 Protein Urine Negative Negative [facility] Urobilinogen < 2 mg/dL < 2 mg/dL [facility] Nitrite Negative Negative [facility] Leukocyte Esterase Negative Negative [facility] Urine [place] Specimen Urine - Urine specimen obtained by clean catch procedure (specimen) Narrative Performed At Microscopic exam not indicated [facility] Culture not performed - reflex criteria not met. Culture is only performed when the urine macroscopic c olor is reported as [place], or whentwoor more of the following criteria are met: Positive Nitrite, Positive Leukocyte Esterase, WBC's > 5 cells/hpf. Performing Organization Address [facility] Code Phon e Number [facility] [address] [place], [place] [address] GLUCOSE BY METER, POCT (04/21/2021 8:57 AM CDT) Pathologist Sig nature Glucose POC 128 (H) 70 - 99 mg/dL [facility] Specimen Blood - Blood specimen (specimen) Performing Organization Address [facility] Phon e Number [facility] [address] [place], [place] [address] GLUCOSE BY METER, POCT (04/21/2021 6:11 AM CDT) Pathologist Sig nature Glucose POC 151 (H) 70 - 99 mg/dL [facility] Specimen Blood - Blood specimen (specimen) Performing Organization Address City/[facility]/ZIP Code Phon e Number [facility] [address] [place], [place] [address] GLUCOSE BY METER, POCT (04/20/2021 9:22 PM CDT) Pathologist Sig nature Glucose POC 107 (H) 70 - 99 mg/dL [facility] Specimen Blood - Blood specimen (specimen) Performing Organization Address [facility] Phon e Number [facility] [address] [place], [place] [address] GLUCOSE BY METER, POCT (04/20/2021 5:34 PM CDT) Pathologist Sig nature Glucose POC 116 (H) 70 - 99 mg/dL [facility] Specimen Blood - Blood specimen (specimen) Performing Organization Address City/State/ZIP Code Phon e Number [facility] [address] [place] [address] GLUCOSE BY METER, POCT (04/20/2021 11:08 AM CDT) Pathologist Sig nature Glucose POC 140 (H) 70 - 99 mg/dL [facility] Specimen Blood - Blood specimen (specimen) Performing Organization Address City/[facility]/ZIP Code Phon e Number [facility] [address] [place] [address] GLUCOSE BY METER, POCT (04/20/2021 5:54 AM CDT) Pathologist Sig nature Glucose POC 143 (H) 70 - 99 mg/dL [facility] Specimen Blood - Blood specimen (specimen) Performing Organization Address City/State/ZIP Code Phon e Number [facility] [address] [place], [place] [address] GLUCOSE BY METER, POCT (04/19/2021 5:15 PM CDT) Pathologist Sig nature Glucose POC 132 (H) 70 - 99 mg/dL [facility] Specimen Blood - Blood specimen (specimen) Performing Organization Address City/[facility]/ZIP Code Phon e Number [facility] [address] [place], [place] [address] GLUCOSE BY METER, POCT (04/19/2021 11:23 AM CDT) Pathologist Sig nature Glucose POC 109 (H) 70 - 99 mg/dL [facility] Specimen Blood - Blood specimen (specimen) Performing Organization Address City/[facility]/ZIP Code Phon e Number [facility] [address] [place], [place] [phone] COLLECT AND HOLD LAVENDER (EDTA) TOP TUBE (04/19/2021 5:42 AM CDT) Collect and Hold Comment: RECEIVED [facility] Specimen Blood - Blood specimen (specimen) Performing Organization Address City/State/ZIP Code Phon e Number [facility] [address] [place] [address] [phone] BASIC METABOLIC PANEL (04/19/2021 5:42 AM CDT) Pathologist Sig nature Glucose 154 (H) 70 - 100 mg/dL [facility] BUN 21 6 - 22 mg/dL [facility] Creatinine 0.79 (L) 0.80 - 1.30 [facility] mg/dL [place] BUN/Creatinine Ratio 26.6 (H) 10.0 - 25.0 [facility] Sodium 136 135 - 145 meq/L [facility] Potassium 5.0 3.5 - 5.3 meq/L [facility] Chloride 102 99 - 110 meq/L [facility] CO2 26 20 - 29 meq/L [facility] Anion Gap with K 13 6 - 20 meq/L [facility] Calcium 9.3 8.5 - 10.5 [facility] mg/dL [place] Age 71 Years [facility] eGFR Non- >90 >=60 [facility] mL/min/1.73m2 [place] eGFR >90 >=60 [facility] mL/min/1.73m2 [place] Specimen Blood - Blood specimen (specimen) Performing Organization Address City/[facility]/ZIP Code Phon e Number [facility] [address] [place] [address] GLUCOSE BY METER, POCT (04/19/2021 5:28 AM CDT) Pathologist Sig nature Glucose POC 140 (H) 70 - 99 mg/dL [facility] Specimen Blood - Blood specimen (specimen) Performing Organization Address City/State/ZIP Code Phon e Number [facility] [address] [place], [place] [address] GLUCOSE BY METER, POCT (04/18/2021 8:59 PM CDT) Pathologist Sig nature Glucose POC 141 (H) 70 - 99 mg/dL [facility] Specimen Blood - Blood specimen (specimen) Performing Organization Address City/State/ZIP Code Phon e Number [facility] [address] [place] [address] GLUCOSE BY METER, POCT (04/18/2021 5:12 PM CDT) Pathologist Sig nature Glucose POC 158 (H) 70 - 99 mg/dL [facility] Specimen Blood - Blood specimen (specimen) Performing Organization Address City/State/ZIP Code Phon e Number [facility] [address] [place], [place] [address] [phone] GLUCOSE BY METER, POCT (04/18/2021 11:16 AM CDT) Pathologist Sig nature Glucose POC 211 (H) 70 - 99 mg/dL [facility] Specimen Blood - Blood specimen (specimen) Performing Organization Address City/[facility]/ZIP Code Phon e Number [facility] [address] [place], [place] [address] BASIC METABOLIC PANEL (04/18/2021 5:20 AM CDT) Pathologist Sig [facility] Glucose 164 (H) 70 - 100 mg/dL [facility] BUN 24 (H) 6 - 22 mg/dL [facility] Creatinine 0.91 0.80 - 1.30 [facility] mg/[facility] BUN/Creatinine Ratio 26.4 (H) 10.0 - 25.0 [facility] Sodium 136 135 - 145 meq/L [facility] Potassium 5.3 3.5 - 5.3 meq/L [facility] Chloride 103 99 - 110 meq/L [facility] CO2 24 20 - 29 meq/L [facility] Anion Gap with K 14 6 - 20 meq/L [facility] Calcium 9.5 8.5 - 10.5 [facility] mg/dL [place] Age 71 Years [facility] eGFR Non- 83 >=60 [facility] mL/min/1.73m2 [place] eGFR >90 >=60 [facility] Icelandic mL/min/1.73m2 [place] Specimen Blood - Blood specimen (specimen) Performing Organization Address City/[facility]/ZIP Code Phon e Number [facility] [address] [place], [place] [address] COLLECT AND HOLD GREEN TOP TUBE (04/18/2021 5:20 AM CDT) Collect and Hold Comment: [facility] Specimen Blood - Blood specimen (specimen) Performing Organization Address City/[facility]/ZIP Code Phon e Number [facility] [address] [place] [address] [phone] HEMOGLOBIN (04/18/2021 5:20 AM CDT) Pathologist Sig nature Hemoglobin 13.4 (L) 13.5 - 17.5 g/dL [facility] Specimen Blood - Blood specimen (specimen) Performing Organization Address City/[facility]/ZIP Code Phon e Number [facility] [address] [place] [address] XRAY KNEE 1-2 VIEWS RT (04/17/2021 1:33 PM CDT) Specimen Narrative Performed At [facility] Patient Name: MARKEL LARES Date of : 1950 Procedure: XRAY KNEE 1-2 VIEWS RT Date of Service: 04/17/2021 EXAM: XRAY KNEE 1-2 VIEWS RT INDICATION: Post op x-ray COMPARISON(S): 04/08/2021 FINDINGS/IMPRESSION: Immediate postoperative changes r elated to right total knee arthroplasty without complication. Anatomic alignment. Expected subcutaneous emphysema. Finalized by: Michael Moreno MD on 1:46 PM CDT Patient/Procedure Information: [facility] MRN/BRITTANY: [id number] Order Number: [id number] Accession Number: [id number] Ordering Provider: ZI DIAZ Authorizing Provider: ZI DIAZ Procedure Note Interface, Radiantres - 04/17/2021 1:48 PM CDT Patient Name: MARKEL LARES Date of : 1950 Procedure: XRAY KNEE 1-2 VIEWS RT Date of Service: 04/17/2021 EXAM: XRAY KNEE 1-2 VIEWS RT INDICATION: Post op x-ray COMPARISON(S): 04/08/2021 FINDINGS/IMPRESSION: Immediate postopera tive changes related to right total knee arthroplasty without complication. Anatomic alignment. Expected subcutaneous emphysema. Finalized by: Michael Moreno MD on 021 1:46 PM CDT Patient/Procedure Information: [facility] MRN/BRITTANY: [id number] Order Number: [id number] Accession Number: [id number] Ordering Provider: ZI DIAZ Authorizing Provider: ZI DIAZ Performing Organization Address City/[facility] Phon e Number [facility] TISSUE EXAM (04/17/2021 12:01 PM CDT) Pathologist Sig nature FINAL DIAGNOSIS Bone and soft tissue, right knee, arthroplasty: [facility] Electronically signed - Bone fragments with change s grossly consistent with degenerative joint disease, and soft tissue fragments without gross pathological abnormality (gross examination only; see gross description). [facility] by Vicente Romero MD on 04/24/2021 at [place]:ch 9:16 AM GROSS DESCRIPTION [facility] Received in formalin labeled "right knee bone and tissue " is a 9 x 8 x 4 cm aggregate of multiple yellow-richards bone and soft tissue fragments, including the tibial plateau and femoral condyles. [facility] cular surfaces show areas of eburnation, osteophyte formation, and focal pitting. The specimen is for gross only diagnosis, no sections are submitted. MB CASE REPORT Surgical Pathology Report Case: [id number] [facility] Authorizing Provider: Joaquín Robles MD Collected: 04/17/2021 1201 CLINIC Ordering Location: [facility] [place] Received: 04/17/2021 1313 Pathologist: Vicente Romero MD Specimen: Knee, Right k nee bone and tissue EMBEDDED IMAGES [facility] Specimen Bone - Entire knee region (body structur e) Performing Organization Address [facility] Phon e Number [facility] [address] [place] [address] [facility] [address] [place] [address] LAB[address]AT[address] documented in this encounter Visit Diagnoses Diagnosis Status post total right knee replacement - Primary Primary osteoarthritis of both knees Primary localized osteoarthrosis, lower leg Essential hypertension Unspecified essential hypertension Chronic low back pain with sciatica, sci atica laterality unspecified, unspecified back pain laterality Functional diarrhea Ileus (HCC) Paralytic ileus documented in this encounter Discharge Diagnoses Not on filedocumented in this encounter Administered Medications Medication Order MAR Action Action Date Dose Rate Site acetaminophen (TYLENOL) tablet Given 04/25/2021 8:12 AM CDT 1,0 00 mg 1,000 mg 1,000 mg, Oral, Three times a day, First dose (after last modification) on Wed04/21/21 at 2100, Until Discontinued, Post - Op, Alternate with tramadol (ULTRAM); Adult patients: Total dose of acetaminophen from all acetaminophen containing products should not exceed 4 grams (4000 mg) per day. Pediatric Patients 0 - 3 months: Maximum of 60 mg/kg/24 hours of acetaminophen. Pediatric Patients older than 3 months: Maximum of 75 mg/kg/24 hours of acetaminophen (Never exceeding 4 grams/day). Given 04/24/2021 9:15 PM CDT 1,000 mg Given 04/24/2021 2:45 PM CDT 1,000 mg apixaban (ELIQUIS) tablet 2.5 mg Given 04/25/2021 8:15 AM CDT 2.5 mg 2.5 mg, Oral, Two times a day, 24 doses, First dose on Wed04/18/21 at 0800, Last dose on Wed04/29/21 at 2000, Post - Op Given 04/24/2021 9:15 PM CDT 2.5 mg Given 04/24/2021 8:46 AM CDT 2.5 mg aspirin enteric coated tablet 81 mg Given 04/25/2021 8:15 AM CDT 81 mg 81 mg, Oral, Daily, First dose on Wed04/18/21 at 0900, Until Discontinued, Tablet should be swallowed whole and not be divided, crushed or chewed. Given 04/24/2021 8:49 AM CDT 81 mg Given 04/23/2021 8:46 AM CDT 81 mg atorvaSTATin (LIPITOR) tablet 20 mg Given 04/24/2021 9:15 PM CDT 20 mg 20 mg, Oral, Bedtime, First dose on Wed04/17/21 at 2100, Until Discontinued Given 04/23/2021 8:07 PM CDT 20 mg Given 04/22/2021 7:44 PM CDT 20 mg bisacodyl (DULCOLAX) enteric coated tablet 5 Given 7:36 AM CDT 5 mg mg 5 mg, Oral, Two times a day prn, Starting on Wed04/17/21 at 1414, Until Discontinued, constipation, Post - Op, SECOND choice or per patient preference calcium carbonate (TUMS) chewable tablet 500 Given 1:08 AM CDT 500 mg mg 500 mg, Oral, Four times a day prn, Starting on Wed04/18/21 at 2341, Until Discontinued, indigestion Given 04/22/2021 7:01 PM CDT 500 mg Given 04/22/2021 9:21 AM CDT 500 mg carVEDilol (COREG) tablet 3.125 mg Given 04/25/2021 8:14 AM CDT 3.125 mg 3.125 mg, Oral, Two times a day with meals, First dose on Wed04/24/21 at 1730, Until Discontinued, Take with food. Given 04/24/2021 5:32 PM CDT 3.125 mg escitalopram (LEXAPRO) tablet 20 mg Given 04/24/2021 9:15 PM CDT 20 mg 20 mg, Oral, Bedtime, First dose on Wed04/17/21 at 2100, Until Discontinued Given 04/23/2021 8:07 PM CDT 20 mg Given 04/22/2021 7:44 PM CDT 20 mg fentaNYL 100 mcg/2 mL preservative free Given 04/18/2021 1:27 A M CDT 50 mcg injection solution 50 mcg 50 mcg, IV, Every thirty minutes prn, Starting on Wed04/17/21 at 1414, Until Discontinued, severe pain, 1 mL, Post - Op, If pain unrelieved by oxycodone hydrALAZINE (APRESOLINE) injection solut ion 5 mg 5 mg, IV, Every four hours prn, Starting on Wed 1 at 1422, Until Discontinued, SBP > 180, 0.25 mL lidocaine (LIDODERM) 5% patch Applied 04/25/2021 8:15 AM CDT 2 patches 2 patch, Apply externally, Daily, First dose on Wed04/21/21 at 1000, Until Discontinued, Administer over 12 Hours Applied 04/24/2021 8:52 AM CDT 2 patches Applied 04/23/2021 8:49 AM CDT 2 patches Back Lower Left TD loperamide (IMODIUM) capsule 2 mg Given 04/24/2021 6:23 AM CDT 2 mg 2 mg, Oral, Every one hour prn, Starting on Wed04/22/21 at 1353, Until Discontinued, diarrhea, if stool is negative for C. difficile, Recommended maximum for children greater than 12 years and adults: 16 mg in 24 hours. Given 04/23/2021 9:23 PM CDT 2 mg Given 04/23/2021 8:07 PM CDT 2 mg loperamide (IMODIUM) capsule 2 mg Given 04/25/2021 6:27 AM CDT 2 mg 2 mg, Oral, Every eight hours, First dose on Wed04/24/21 at 1400, Until Discontinued, Recommended maximum for children greater than 12 years and adults: 16 mg in 24 hours. Given 04/24/2021 9:14 PM CDT 2 mg Given 04/24/2021 2:17 PM CDT 2 mg losartan tablet 50 mg Given 04/25/2021 8:14 AM CDT 50 mg 50 mg, Oral, DAILY, First dose (after last modification) on Wed04/22/21 at 0900, Until Discontinued, Hold for SBP less than 100 Given 04/24/2021 8:47 AM CDT 50 mg Given 04/23/2021 8:46 AM CDT 50 mg magnesium hydroxide (MILK OF MAGNESIA) oral Given 04/19/2021 7:36 AM CDT 30 mL suspension 30 mL 30 mL, Oral, Two times a day prn, Starting on Wed04/17/21 at 1414, Until Discontinued, constipation, 30 mL, Post - Op, FIRST choice or per patient preference. Exception: Nephrology/renal patients Given 04/18/2021 6:36 AM CDT 30 mL omeprazole (priLOSEC) capsule 20 mg Given 04/25/2021 6:28 AM CDT 20 mg 20 mg, Oral, Every morning, First dose on Wed04/18/21 at 0700, Until Discontinued, Swallow cap whole. Do not crush, chew or open. Given 04/24/2021 6:23 AM CDT 20 mg Given 04/23/2021 6:14 AM CDT 20 mg ondansetron (ZOFRAN) injection solution 4 mg Given 04/22/2021 5:49 AM CDT 4 mg 4 mg, IV, Every four hours prn, Starting on Wed04/17/21 at 1307, Until Discontinued, nausea, vomiting, 2 mL, PACU - Continue Post-Op, Use FIRST for nausea/vomiting. If ineffective after 15 minutes use haloperidol if ordered for nausea/vomiting. If preference is to further dilute for IV administration: First draw up patient-specific dose, then dilute to 10 mL with 0.9% sodium chloride. Given 04/21/2021 6:40 PM CDT 4 mg Given 04/19/2021 7:45 AM CDT 4 mg oxyCODONE (OXY-IR) tablet 5-10 mg Given 04/21/2021 9:37 AM CDT 5 mg 5-10 mg, Oral, Every four hours prn, Starting on Marika 04/17/21 at 1414, Until Discontinued, moderate pain, severe pain, Post - Op, For patients with moderate pain, pain rating of 4-6, give oxyCODONE 5 mg PO every 4 hours PRN. For patients with severe pain, pain rating of 7 or greater, give oxyCODONE 10 mg PO every 4 hours PRN. May administer less potent prescribed medication based on patient request per the organization's medication management policy. Given 04/20/2021 3:39 AM CDT 10 mg Given 04/19/2021 3:20 PM CDT 10 mg polyethylene glycol (MIRALAX) packet 1 Given 04/25/2021 8:14 AM CDT 1 packet packet 1 packet, Oral, Daily, First dose on 04/21/21 at 0900, Until Discontinued, Dissolve in 8 ounces of water, juice, soda, coffee, tea Do NOT give if patient on thickened liquids. Contact provider for alternative if needed. Given 04/23/2021 8:46 AM CDT 1 packet Given 04/21/2021 8:42 AM CDT 1 packet sodium chloride 0.9% flush (adult) 10 mL Given 04/24/2021 9:16 PM CDT 10 mL 10 mL, IV, Two times a day and prn, First dose on Marika 04/17/21 at 2100, Until Discontinued, 10 mL, Post - Op, Flush unused lumens as scheduled and as often as necessary before and after meds. Use a push/pause technique when flushing to create turbulence. Given 04/24/2021 8:48 AM CDT 10 mL Given 04/23/2021 8:09 PM CDT 10 mL tamsulosin (FLOMAX) capsule 0.4 mg Given 04/25/2021 8:16 AM CDT 0.4 mg 0.4 mg, Oral, Daily, First dose on Wed04/18/21 at 0900, Until Discontinued, Swallow cap whole. Do not crush, chew or open. Given 04/24/2021 8:48 AM CDT 0.4 mg Given 04/23/2021 8:46 AM CDT 0.4 mg Medication Order MAR Action Action Date Dose Rate Site acetaminophen (TYLENOL) tablet Given 04/17/2021 8:47 AM CDT 1,0 00 mg 1,000 mg 1,000 mg, Oral, Pre-op, 1 dose, On Wed04/17/21 at 0755, Pre - Op, Adult patients: Total dose of acetaminophen from all acetaminophen containing products should not exceed 4 grams (4000 mg) per day. Pediatric Patients 0 - 3 months: Maximum of 60 mg/kg/24 hours of acetaminophen. Pediatric Patients older than 3 months: Maximum of 75 mg/kg/24 hours of acetaminophen (Never exceeding 4 grams/day). acetaminophen (TYLENOL) tablet 1,000 mg Given 04/21/2021 1:21 PM CDT 1,000 mg 1,000 mg, Oral, Every six hours, First dose (after last modification) on Wed04/21/21 at 1200, Until Discontinued, Post - Op, Alternate with tramadol (ULTRAM); Adult patients: Total dose of acetaminophen from all acetaminophen containing products should not exceed 4 grams (4000 mg) per day. Pediatric Patients 0 - 3 months: Maximum of 60 mg/kg/24 hours of acetaminophen. Pediatric Patients older than 3 months: Maximum of 75 mg/kg/24 hours of acetaminophen (Never exceeding 4 grams/day). acetaminophen (TYLENOL) tablet 650 mg Given 04/21/2021 6:01 AM CDT 650 mg 650 mg, Oral, Every six hours, First dose on Wed04/17/21 at 1800, Until Discontinued, Post - Op, Alternate with tramadol (ULTRAM); Adult patients: Total dose of acetaminophen from all acetaminophen containing products should not exceed 4 grams (4000 mg) per day. Pediatric Patients 0 - 3 months: Maximum of 60 mg/kg/24 hours of acetaminophen. Pediatric Patients older than 3 months: Maximum of 75 mg/kg/24 hours of acetaminophen (Never exceeding 4 grams/day). Given 04/21/2021 12:28 AM CDT 650 mg Given 04/20/2021 11:58 AM CDT 650 mg bisacodyl (DULCOLAX) suppository 10 mg Given 04/19/2021 11:43 AM CDT 10 mg 10 mg, Rectal, One time a day prn, Starting on Marika 04/17/21 at 1414, Until 04/19/21 at 1734, constipation, Post - Op, THIRD choice or per patient preference. If patient cannot take oral medications, use first for constipation. ceFAZolin (ANCEF) 2000 mg/20 mL sterile Given 04/18/2021 3:22 A M CDT 2,000 mg water IV syringe 2,000 mg, IV, Every eight hours, 2 doses, First dose on Marika 04/17/21 at 1930, Last dose on Wed04/18/21 at 0330, 20 mL, PACU - Continue Post-Op, Administer as IV push over 4 minutes. Given 04/17/2021 8:33 PM CDT 2,000 mg fentaNYL 100 mcg/2 mL preservative free Given 04/17/2021 11:19 A M CDT 100 mcg injection solution 25-100 mcg 25-100 mcg, IV, Every five minutes prn, 3 doses, Starting on Marika 04/17/21 at 0752, Until Marika 04/17/21 at 1309, for block, 2 mL, Pre - Op, Fentanyl 25-100 mcg q 5 min prn over the next 2 hours to a MAX of 300 mcg as needed for analgesia during procedure gabapentin (NEURONTIN) capsule 600 mg Given 04/17/2021 8:47 AM CDT 600 mg 600 mg, Oral, Pre-op, 1 dose, On Marika 04/17/21 at 0755, Pre - Op, 1 dose prior to surgery insulin aspart (NovoLOG) SQ correction Given 04/22/2021 6:30 AM CDT 2 Units scale (Adult) 2-8 Units, Subcutaneous, Three times a day, First dose on Wed04/18/21 at 1130, Until Discontinued, 0.08 mL, Give this dose whether patient is eating or patient is NPO LOW DOSE insulin aspart (NovoLOG) subcutaneous correction scale Premeal Blood Glucose = Insulin Dose 150-199 2 units 200-249 3 units 250-299 5 units 300-349 7 units Over 349 8 units Given 04/21/2021 6:53 AM CDT 2 Units Given 04/18/2021 5:42 PM CDT 2 Units lactated ringers IV solution New Bag 04/17/2021 12:19 PM CDT IV, at 25 mL/hr, Continuous, Starting on Marika 04/17/21 at 0855, Until Marika 04/17/21 at 1309, 1,000 mL, Pre - Op Now New Bag/Tubing 04/17/2021 8:37 AM CDT 25 mL/hr lactated ringers IV solution Already Infusing 04/17/2021 1:09 PM CDT 125 mL/hr IV, at 125 mL/hr, Continuous, Starting on Marika 04/17/21 at 1350, Until Marika 04/17/21 at 1400, 1,000 mL, PACU, TKO current fluids if patient is going to Day Unit / ARU and tolerating PO fluids without nausea. lactulose oral solution (10 gm/15 mL) 30 mL Given 04/21/2021 9:52 PM CDT 30 mL 30 mL, Oral, Two times a day, First dose on Wed04/21/21 at 2100, Until Discontinued, 30 mL losartan tablet 25 mg Given 04/21/2021 8:42 AM CDT 25 mg 25 mg, Oral, DAILY, First dose on 04/19/21 at 0900, Until Discontinued, Hold for SBP less than 100 Given 04/20/2021 8:54 AM CDT 25 mg Given 04/19/2021 10:17 AM CDT 25 mg losartan tablet 25 mg Given 04/21/2021 10:54 AM CDT 25 mg 25 mg, Oral, One time, 1 dose, On 04/21/21 at 1000 metoclopramide (REGLAN) inj soln 10 mg Given 04/21/2021 9:52 PM CDT 10 mg 10 mg, IV, Three times a day, First dose on 04/21/21 at 2100, Until Discontinued, 2 mL, If preference is to further dilute for IV administration: First draw up patient-specific dose, then dilute to 10 mL with 0.9% sodium chloride. metoclopramide (REGLAN) inj soln 10 mg Given 04/23/2021 6:14 AM CDT 10 mg 10 mg, IV, Every six hours, First dose on Wed04/22/21 at 1200, Until Discontinued, 2 mL, If preference is to further dilute for IV administration: First draw up patient-specific dose, then dilute to 10 mL with 0.9% sodium chloride. Given 04/22/2021 5:11 PM CDT 10 mg Given 04/22/2021 12:06 PM CDT 10 mg midazolam (VERSED) injection solution 0.25-2 Given 11:19 AM CDT 2 mg mg 0.25-2 mg, IV, Every five minutes prn, 6 doses, Starting on Marika 04/17/21 at 0752, Until Marika 04/17/21 at 1309, sedation, 2 mL, Pre - Op, Midazolam 0.25-2 mg q 5 min prn to a MAX of 5 mg as needed for sedation during procedure. polyethylene glycol (MIRALAX) packet 1 Given 04/19/2021 10:16 AM CDT 1 packet packet 1 packet, Oral, Daily, First dose on Wed04/18/21 at 0900, Until Discontinued, Post - Op, Hold if 2 loose stools occur in the last 24 hours. Do NOT give if patient on thickened liquids. Contact provider for alternative if needed. Given 04/18/2021 9:47 AM CDT 1 packet polyethylene glycol (MIRALAX) packet 1 Given 04/19/2021 8:05 PM CDT 1 packet packet 1 packet, Oral, Two times a day, First dose (after last modification) on Wed04/19/21 at 2100, Until Discontinued, Post - Op, Hold if 2 loose stools occur in the last 24 hours. Do NOT give if patient on thickened liquids. Contact provider for alternative if needed. ropivacaine 0.5 % 100 mg Peripheral Nerve Block Given 04/17/2021 11:20 AM CDT Injection Syringe Perineural, Now, 1 dose, On Marika 04/17/21 at 0755, 20 mL, Pre - Op, Inject 5-10 mL per administration as directed by Anesthesia with a total maximum of 40 mL senna-docusate sodium Given 04/19/2021 8:04 PM CDT 1 tablet (SENOKOT-S;PERICOLACE) tablet 1 tablet 1 tablet, Oral, Two times a day, First dose on Marika 04/17/21 at 2100, Until Discontinued, Post - Op, Hold if 2 loose stools occur in the last 24 hours. Given 04/19/2021 10:15 AM CDT 1 tablet Given 04/18/2021 7:47 PM CDT 1 tablet sodium chloride 0.9% flush (adult) 10 mL Given 04/22/2021 8:54 AM CDT 10 mL 10 mL, IV, Two times a day and prn, First dose on Marika 04/17/21 at 0900, Until Discontinued, 10 mL, Active Now, Flush PIV line as scheduled and as often as necessary before and after meds. Use a push / pause technique when flushing to create turbulence. Given 04/21/2021 8:44 AM CDT 10 mL Given 04/20/2021 8:09 PM CDT 10 mL sodium chloride 0.9% IV solution New Bag 04/17/2021 2:45 PM CDT 75 mL/hr IV, at 75 mL/hr, Continuous, Starting on Marika 04/17/21 at 1415, Until Wed04/18/21 at 0031, 1,000 mL, Post - Op sodium chloride 0.9% IV solution New Bag 04/19/2021 12:11 PM CDT 75 mL/hr IV, at 75 mL/hr, Continuous, Starting on 04/19/21 at 1255, Until 04/19/21 at 1701, 1,000 mL sodium chloride 0.9% IV solution New Bag 04/23/2021 1:10 AM CDT 75 mL/hr IV, at 75 mL/hr, Continuous, Starting on Tu04/22/21 at 1225, Until 04/23/21 at 1048, 1,000 mL New Bag 04/22/2021 12:06 PM CDT 75 mL/hr traMADol (ULTRAM) tablet 100 mg Given 04/17/2021 8:47 AM CDT 100 mg 100 mg, Oral, Pre-op, 1 dose, On Marika 04/17/21 at 0755, Pre - Op, Recommended maximum daily dose of tramadol = 400 mg. Recommended maximum daily dose in patients 75 years or older = 300 mg. traMADol (ULTRAM) tablet 100 mg Given 04/20/2021 10:35 AM CDT 100 mg 100 mg, Oral, Every six hours, First dose on Marika 04/17/21 at 1500, Until Discontinued, Post - Op, Alternate with acetaminophen (TYLENOL). Recommended maximum daily dose of traMADol = 400 mg. Recommended maximum daily dose in patients greater than 75 years of age = 300 mg Given 04/20/2021 4:21 AM CDT 100 mg Given 04/19/2021 8:03 PM CDT 100 mg documented in this encounter Active and Recently Administered Medications Times are shown in CDT. Medication Order 04/23/2021 04/24/2021 04/25/2021 acetaminophen (TYLENOL) tablet 1,000 mg 0847 (Given - Provider: Marley Olivares LPN)1514 (Given - Provider: Marley Olivares LPN)2006 (Given - Provider: Kassidy Crane RN) 0850 (Given - Provider: Micheala Cornelius)144 (Given - Provider: Marley Olivares LPN)2114 (Given - Provider: Vidal Robison RN) 0812 (Given - Provider: Nieves Marrero RN)1500 (Due)2100 (Due) 1,000 mg, Oral, Three times a day, First dose (after last modification) on 04/21/21 at 2100, Until Discontinued, Post - Op, Alternate with tramadol (ULTRAM); Adult patients: Total dose of acetamino phen from all acetaminophen containing p roducts should not exceed 4 grams (4000 mg) per day. Pediatric Patients 0 - 3 months: Maximum of 60 mg/kg/24 hours of acetaminophen. Pediatric Patients older th an 3 months: Maximum of 75 mg/kg/24 stephanie rs of acetaminophen (Never exceeding 4 grams/day). apixaban (ELIQUIS) tablet 2.5 mg 0846 (Given - Provide r: Marley Olivares LPN)2006 (Given - Provider: Kassidy Crane RN) 0846 (Given - Provider: Marley Olivares LPN)2114 (Given - Provider: Vidal Robison RN) 0815 (Given - Provider: Nieves Marrero RN)2000 (Due) 2.5 mg, Oral, Two times a day, 24 doses, First dose on Wed04/18/21 at 0800, Last dose on Wed04/29/21 at 2000, Post - Op aspirin enteric coated tablet 81 mg 0846 (Given - Provider: Marley Olivares LPN) 0849 (Given - Provider: Marley Olivares LPN) 0815 (Given - Provider: Nieves Marrero RN) 81 mg, Oral, Daily, First dose on Wed at 0900, Until Discontinued, Tablet should be swallowed whole and not be divided, crushed or chewed. atorvaSTATin (LIPITOR) tablet 20 mg 2006 (Given - Provider: Kassidy Crane RN) 2114 (Given - Provider: Vidal Robison RN) 2099 (Due) 20 mg, Oral, Bedtime, First dose on Wed04/17/21 at 2100, Until D iscontinued carVEDilol (COREG) tablet 3.125 mg 1731 (Given - Provider: Aline Cabrera RN) 813 (Given - Provider: [place])1729 (Due) 3.125 mg, Oral, Two times a day with hung ls, First dose on Wed04/24/21 at 1730, Until Discontinued, Take with food. escitalopram (LEXAPRO) tablet 20 mg 2006 (Given - Provider: Kassidy Crane RN) 2114 (Given - Provider: Vidal Robison, MARLA) 2099 (Due) 20 mg, Oral, Bedtime, First dose on Wed04/17/21 at 2100, Until D iscontinued lidocaine (LIDODERM) 5% patch 49 (Applied - Provider : Marley Olivares LPN)1954 (Remove - Provider: Melyssa Louis RN) 0852 (Applied - Provider: Blair damon RN)2205 (Remove - Provider: Vidal Robison, MARLA) 0815 (Applied - Provider: Nieves Marrero RN)2014 (Due: Remove - Provider: Nieves Marrero RN) 2 patch, Apply externally, Daily, First dose on Wed04/21/21 at 1000, Until Discontinued, Administer over 12 Hours loperamide (IMODIUM) capsule 2 mg 1416 ( Given - Provider: Marley Olivares LPN)2113 (Given - Provider: Vidal Robison RN) 06 (Given - Provider: Vidal Robison, MARLA)1400 (Due)2200 (Due) 2 mg, Oral, Every eight hours, First dos e on Wed04/24/21 at 1400, Until Discontinued, Recommended maximum for children greater than 12 years and adults: 16 mg in 24 hours. losartan tablet 50 mg 0846 (Given - Provider: Marley Olivares LPN) 0847 (Given - Provider: Marley Olivares LPN) 0814 (Given - Provider: [place]) 50 mg, Oral, DAILY, First dose (after la st modification) on Wed04/22/21 at 0900, Until Discontinued, Hold for SBP less than 100 metoclopramide (REGLAN) inj soln 10 mg (CANCELED) 0614 (Given - Provider: Kassidy Crane RN) 10 mg, IV, Every six hours, First dose o n Wed04/22/21 at 1200, Until Discontinued, 2 mL, If preference is to further dilute for IV administration: First draw up patient-specific dose, then dilute to 10 mL with 0.9% sodium chloride. omeprazole (priLOSEC) capsule 20 mg 0614 (Given - Provider: Kassidy Crane RN) 06 (Given - Provider: Darby Coreas RN) 0628 (Given - Provider: Vidal Robison RN) 20 mg, Oral, Every morning, First dose o n Wed04/18/21 at 0700, Until Discontinued, Swallow cap whole. Do not crush, chew or open. polyethylene glycol (MIRALAX) packet 1 packet 0846 (Gi brandon - Provider: Marley Olivares LPN) 0848 (Refused - Provider: Marley Olivares LPN) 0814 (Gi brandon - Provider: Nieves Marrero RN) 1 packet, Oral, Daily, First dose on Wed04/21/21 at 0900, Until Discontinued, Dissolve in 8 ounces of water, juice, soda, coffee, tea Do NOT give if patient on thickened liquids. Contact provider for alternative if needed. sodium chloride 0.9% flush (adult) 10 mL 0900 (Not Ind icated - Provider: Marley Olivares LPN)2008 (Given - Provider: Kassidy Crane RN) 0848 (Given - Provider: Marley Olivares LPN)2115 (Given - Provider: Vidal Robison RN) 08 (Not Indicated - Provider: Nieves Marrero RN - Comment: No IV access)2099 (Due) 10 mL, IV, Two times a day and prn, Firs t dose on Wed04/17/21 at 2100, Until Discontinued, 10 mL, Post - Op, Flush unused lumens as scheduled and as often as necessary before and after meds. Use a push/ pause technique when flushing to create turbulence. tamsulosin (FLOMAX) capsule 0.4 mg 08 (Given - Provider: Elaine Olivares LPN) 0848 (Given - Provider: Marley Olivares LPN) 0816 (Given - Provider: Nieves Marrero RN) 0.4 mg, Oral, Daily, First dose on Wed at 0900, Until Discontinued, Swallow cap whole. Do not crush, chew or open. Medication Order 04/23/2021 04/24/2021 04/25/2021 sodium chloride 0.9% IV solution (CANCELED) 0110 (New Bag - Provider: Kassidy Crane RN)1214 (Stopped - Provider: Marley Olivares LPN) IV, at 75 mL/hr, Continuous, Starting on Wed04/22/21 at 1225, Until Wed04/23/21 at 1048, 1,000 mL Medication Order 04/23/2021 04/24/2021 04/25/2021 benzocaine-menthol (CEPACOL w/ BENZOCAINE) lozenge 1 lozenge 1 lozenge, Mouth/Throat, Every four hour s prn, Starting Marika 04/17/21 at 1414, Until Discontinued, sore throat, other (Specify), throat irritation, Post - Op, Exception: Patients with dysphagia, radiation mucositis/esophagitis or without a gag reflex. bisacodyl (DULCOLAX) enteric coated tablet 5 mg 5 mg, Oral, Two times a day prn, Startin g Marika 04/17/21 at 1414, Until Discontinued, constipation, Post - Op, SECOND choice or per patient preference calcium carbonate (TUMS) chewable tablet 500 mg 0108 (Given - Provider: Darby Coreas, RN) 500 mg, Oral, Four times a day prn, Star ting Wed04/18/21 at 2341, Until Discontinued, indigestion diphenhydrAMINE (BENADRYL) injection solution 25 mg 25 mg, IV, Every four hours prn, Startin g Marika 04/17/21 at 1414, Until Discontinued, itching, 0.5 mL, Post - Op, May repeat 4 times If preference is to further dilute for IV administration: First draw up patient-specific dose, then dilute to 10 mL with 0.9% sodium chl oride. fentaNYL 100 mcg/2 mL preservative free injection solution 50 mc g 50 mcg, IV, Every thirty minutes prn, St arting Marika 04/17/21 at 1414, Until Discontinued, severe pain, 1 mL, Post - Op, If pain unrelieved by oxycodone hydrALAZINE (APRESOLINE) injection solution 5 mg 5 mg, IV, Every four hours prn, Starting Marika 04/17/21 at 1422, Until Discontinued, SBP > 180, 0.25 mL loperamide (IMODIUM) capsule 2 mg 2006 (Given - Provid er: Kassidy Crane RN)2122 (Given - Provider: Melyssa Louis RN) 622 (Given - Provider: Darby Coreas RN) 2 mg, Oral, Every one hour prn, Starting on Tu04/22/21 at 1353, Until Discontinued, diarrhea, if stool is negative for C. difficile, Recommended maximum for children greater than 12 years and adults: 16 mg in 24 hours. magnesium hydroxide (MILK OF MAGNESIA) oral suspension 30 mL 30 mL, Oral, Two times a day prn, Starti ng Marika 04/17/21 at 1414, Until Discontinued, constipation, 30 mL, Post - Op, FIRST choice or per patient preference. Exception: Nephrology/renal patients nalOXone (NARCAN) injection solution (vial) 0.2 mg 0.2 mg, Injection, Every two minutes prn , Starting Marika 04/17/21 at 1414, Until Discontinued, other (Specify), opioid induced respiratory depression - PARTIAL reversal, 0.5 mL, Post - Op, PARTIAL REVERSAL /RESPIRATORY DEPRESSION If respiratory r ate less than 8/minute - call rapid response and administer (until respiratory rate increases to 10/minute). Give IV (preferred), IM or SUBQ nalOXone (NARCAN) injection solution (vial) 0.4 mg 0.4 mg, Injection, Every two minutes prn , Starting Marika 04/17/21 at 1414, Until Discontinued, other (Specify), opioid induced respiratory arrest - FULL reversal, 1 mL, Post - Op, FULL REVERSAL/RESPIRATORY ARREST If patient is not breathing - ca ll CODE BLUE and administer. Give IV (preferred), IM or SUBQ nitroglycerin (NITROSTAT) sublingual tablet 0.4 mg 0.4 mg, Sublingual, Every five minutes p rn, Starting Marika 04/17/21 at 1313, Until Discontinued, chest pain, At onset of chest pain, dissolve one tablet under tongue. May repeat every 5 minutes for 3 doses. Do not crush or chew. ondansetron (ZOFRAN) injection solution 4 mg 4 mg, IV, Every four hours prn, Starting Marika 04/17/21 at 1307, Until Discontinued, nausea, vomiting, 2 mL, PACU - Continue Post-Op, Use FIRST for nausea/vomiting. If ineffective after 15 minutes use halo peridol if ordered for nausea/vomiting. If preference is to further dilute for IV administration: First draw up patient-specific dose, then dilute to 10 mL with 0.9% sodium chloride. oxyCODONE (OXY-IR) tablet 5-10 mg 5-10 mg, Oral, Every four hours prn, Sta rting Marika 04/17/21 at 1414, Until Discontinued, moderate pain, severe pain, Post - Op, For patients with moderate pain, pain rating of 4-6, give oxyCODONE 5 mg PO every 4 hours PRN. For patients with se fidel pain, pain rating of 7 or greater, give oxyCODONE 10 mg PO every 4 hours PRN. May administer less potent prescribed medication based on patient request per the organization's medication management policy. documented in this encounter
[2021-04-29] MEDS: Citalopram 20 MG Tab PO SCH (20:36)
[2021-04-29] MEDS: REMOVE LIDOCAINE TRDERM SCH (20:39)
[2021-04-30] MEDS: Acetaminophen 500 MG Tab PO PRN ×4 (00:32→22:29)
[2021-04-30] MEDS: Omeprazole 20 MG Cap.CR PO SCH (06:06)
[2021-04-30] MEDS: Aspirin 81 MG Tab.EC PO SCH (07:27)
[2021-04-30] MEDS: atorvaSTATin 10 MG Tab PO SCH (07:28)
[2021-04-30] MEDS: Multivitamins with Iron/Calcium/Folic Acid/Minerals Tab PO SCH (07:29)
[2021-04-30] MEDS: Carvedilol 3.125 MG Tab PO SCH ×2 (07:29→17:32)
[2021-04-30] MEDS: Losartan 50 MG Tab PO SCH (07:30)
[2021-04-30] MEDS: Lidocaine 4% 1 each Patch TOP SCH (07:30)
[2021-04-30] MEDS: MILK THISTLE 175 MG PO SCH ×2 (07:31→19:32)
[2021-04-30] MEDS: TURMERIC ROOT EXTRACT 1000 MG PO SCH (07:32)
[2021-04-30] MEDS: Polyethylene Glycol 3350 Powder 17 GM Packet PO SCH (07:32)
[2021-04-30] MEDS: Citalopram 20 MG Tab PO SCH (19:32)
[2021-04-30] MEDS: REMOVE LIDOCAINE TRDERM SCH (19:33)
[2021-05-01] MEDS: Omeprazole 20 MG Cap.CR PO SCH (06:24)
[2021-05-01] MEDS: Lidocaine 4% 1 each Patch TOP SCH (07:43)
[2021-05-01] MEDS: Acetaminophen 500 MG Tab PO PRN (07:44)
[2021-05-01] MEDS: atorvaSTATin 10 MG Tab PO SCH (07:44)
[2021-05-01] MEDS: Aspirin 81 MG Tab.EC PO SCH (07:44)
[2021-05-01] MEDS: Carvedilol 3.125 MG Tab PO SCH (07:44)
[2021-05-01] MEDS: Multivitamins with Iron/Calcium/Folic Acid/Minerals Tab PO SCH (07:44)
[2021-05-01] MEDS: Polyethylene Glycol 3350 Powder 17 GM Packet PO SCH (07:44)
[2021-05-01] MEDS: Losartan 50 MG Tab PO SCH (07:45)
[2021-05-01] MEDS: MILK THISTLE 175 MG PO SCH (07:46)
[2021-05-01] MEDS: TURMERIC ROOT EXTRACT 1000 MG PO SCH (07:46)
--- NOTE | 2021-05-01 08:35 | PCM.DCSUM1 ---
Discharge Summary - Hospital Course Free Text/Narrative:: Markel is a 71-year-old male with past medical history of depression, hyperlipidemia, hypertension, morbid obesity, BPH, gastric cancer, liver cirrhosis from chronic hepatitis C who was admitted to [facility] on 04/17/[address] Robles for a right total knee arthroplasty. He did tolerate the procedure well. After the surgery he developed an ileus which did prolong his hospital stay. He also had some acute delirium secondary to the pain medications that he was on. He was being seen by physical therapy and occupational therapy and by 04/25/2021 and he was deemed good enough for discharge to an outside facility for ongoing therapies. He arrived to [facility] on 04/25/21 for this. Progressed well through therapies over the last week and has been deemed stable to discharge home to continue outpatient therapies. He has been taking PRN tylenol for pain during his stay. He is finished with his anticoagulant for post-op DVT prophylaxis. New medications since this hospitalization include COREG 3.125 BID which has been controlling his BP well here. He will take this with his lisinopril daily for BP control; patient is aware of this change. Patient should make an appointment with his PCP within 2 weeks time for hospital discharge follow-up. - Discharge Data Discharge Date: 05/01/21 Discharge Disposition: Home, Self-Care 01 Condition: Good - Referral to Home Health Primary Care Physician: Kyle Colon MD - Discharge Diagnosis/Problem(s) (1) Physical deconditioning SNOMED Code(s): 69386636061279 ICD Code: R53.81 - OTHER MALAISE Status: Acute Current Visit: Yes (2) Total knee replacement status SNOMED Code(s): 6207780937189, [id number], 7793204798146 ICD Code: Z96.659 - PRESENCE OF UNSPECIFIED ARTIFICIAL KNEE JOINT Status: Acute Current Visit: Yes - Patient Summary/Data Consults: Consultations 04/25/21 13:09 OT Evaluation and Treatment [CONS] Routine PT Evaluation and Treatment [CONS] Routine - Discharge Plan Home Medications: Home Meds Acetaminophen [Tylenol Extra Strength] 1,000 mg PO Q6H PRN 04/25/21 [History] Aspirin [Aspirin EC] 81 mg PO DAILY 04/25/21 [History] Escitalopram [Lexapro] 20 mg PO BEDTIME 04/25/21 [History] Lidocaine 5% [Lidoderm 5%] 2 patch TOP DAILY 04/25/21 [History] Loperamide HCl [Loperamide] 2 - 4 mg PO ASDIRECTED PRN 04/25/21 [History] Losartan [Cozaar] 50 mg PO DAILY 04/25/21 [History] Milk Thistle 500 mg PO BID 04/25/21 [History] Multivitamin [Multivitamins] 2 tab PO DAILY 04/25/21 [History] Nitroglycerin [Nitrostat] 0.4 mg SL ASDIRECTED PRN 04/25/21 [History] Omeprazole Magnesium [Prilosec Otc] 20 mg PO DAILY 04/25/21 [History] Turmeric Root Extract [Turmeric] 2,000 mg PO DAILY 04/25/21 [History] atorvaSTATin [Lipitor] 20 mg PO DAILY 04/25/21 [History] bisacodyL [Dulcolax] 5 mg PO BID PRN 04/25/21 [History] carvediloL [Carvedilol] 3.125 mg PO BIDMEALS 04/25/21 [History] polyethylene glycoL 3350 [MiraLAX] 17 gram PO DAILY 04/25/21 [History] - Discharge Summary/Plan Comment DC Time >30 min.: No - General Info Date of Service: 05/01/21 Admission Dx/Problem (Free Text: Admission Diagnosis/Problem Admission Diagnosis/Problem Physical deconditioning - Review of Systems General: Reports: No Symptoms HEENT: Reports: No Symptoms Pulmonary: Reports: No Symptoms Cardiovascular: Reports: No Symptoms Gastrointestinal: Reports: No Symptoms Genitourinary: Reports: No Symptoms Musculoskeletal: Reports: Leg Pain (knee improving, swelling improving) Skin: Reports: No Symptoms Neurological: Reports: No Symptoms Psychiatric: Reports: No Symptoms - Patient Data Vitals - Most Recent: Last Vital Signs Temp 97.8 F 05/01/21 05:01 Pulse 79 05/01/21 07:44 Resp 18 05/01/21 05:01 BP 150/78 H 05/01/21 07:45 Pulse Ox 96 05/01/21 05:01 Weight - Most Recent: 338 lb 14.4 oz I&O - Last 24 hours: Intake & Output 04/30/21 05/01/21 05/01/21 22:59 06:59 14:59 Intake Total 200 Balance 200 Med Orders - Current: Current Medications Acetaminophen (Acetaminophen 500 Mg Tab) 1,000 mg PO Q6H PRN PRN Reason: Pain Last Admin: 05/01/21 07:44 Dose: 1,000 mg Documented by: Aspirin (Aspirin 81 Mg Tab.Ec) 81 mg PO DAILY [facility] Last Admin: 05/01/21 07:44 Dose: 81 mg Documented by: Atorvastatin Calcium (Atorvastatin 10 Mg Tab) 20 mg PO DAILY [facility] Last Admin: 05/01/21 07:44 Dose: 20 mg Documented by: Bisacodyl (Bisacodyl 5 Mg Tab) 5 mg PO BID PRN PRN Reason: Constipation Carvedilol (Carvedilol 3.125 Mg Tab) 3.125 mg PO BIDMEALS [facility] Last Admin: 05/01/21 07:44 Dose: 3.125 mg Documented by: Citalopram Hydrobromide (Citalopram 20 Mg Tab) 20 mg PO BEDTIME [facility] Last Admin: 04/30/21 19:32 Dose: 20 mg Documented by: Lidocaine (Lidocaine 4% 1 Each Patch) 2 each TOP DAILY [facility] Last Admin: 05/01/21 07:43 Dose: 2 each Documented by: Loperamide HCl (Loperamide 2 Mg Cap) 2 - 4 mg PO ASDIRECTED PRN PRN Reason: Diarrhea Last Admin: 04/26/21 23:00 Dose: 4 mg Documented by: Losartan Potassium (Losartan 50 Mg Tab) 50 mg PO DAILY [facility] Last Admin: 05/01/21 07:45 Dose: 50 mg Documented by: Miscellaneous Information (Remove Patch- Lidocaine 2 Patches) 1 ea TRDERM BEDTIME [facility] Last Admin: 04/30/21 19:33 Dose: Not Given Documented by: Multivitamins/Minerals (Multivitamins With Iron/Calcium/Folic Acid/Minerals Tab) 2 tab PO DAILY [facility] Last Admin: 05/01/21 07:44 Dose: 2 tab Documented by: Nitroglycerin (Nitroglycerin 0.4 Mg Tab.Sl) 0.4 mg SL ASDIRECTED PRN PRN Reason: Chest Pain Patients Own Med Milk Thistle 175 Mg Capsule 0 mg PO BID [facility] Last Admin: 05/01/21 07:46 Dose: 350 mg Documented by: Patients Own Med Turmeric Root Extract [Turmeric] 1000 Mg Capsule) 2,000 mg PO DAILY [facility] Last Admin: 05/01/21 07:46 Dose: 2,000 mg Documented by: Omeprazole (Omeprazole 20 Mg Cap.Cr) 20 mg PO DAILY@0700 [facility] Last Admin: 05/01/21 06:24 Dose: 20 mg Documented by: Ondansetron HCl (Ondansetron 4 Mg Tab.Dis) 4 mg PO Q4H PRN PRN Reason: nausea, able to take PO Polyethylene Glycol (Polyethylene Glycol 3350 Powder 17 Gm Packet) 17 gm PO DAILY [facility] Last Admin: 05/01/21 07:44 Dose: Not Given Documented by: Discontinued Medications Acetaminophen (Acetaminophen 325 Mg Tab) 650 mg PO Q4H PRN PRN Reason: Pain (Mild 1-3)/fever Apixaban (Apixaban 2.5 Mg Tab) 2.5 mg PO BID [facility] Stop: 04/29/21 23:30 Last Admin: 04/29/21 20:36 Dose: 2.5 mg Documented by: - Exam General: Reports: Alert, Oriented HEENT: Reports: EOMI, Mucous Membr. Moist/[place] Neck: Reports: Supple Lungs: Reports: Clear to Auscultation, Normal Respiratory Effort Cardiovascular: Reports: Regular Rate, Regular Rhythm GI/Abdominal Exam: Normal Bowel Sounds, Soft, Non-Tender Extremities: Pedal Edema (right side, 1+, mild tender) Skin: Reports: Warm, Dry Wound/Incisions: Reports: Healing Well (bandage removed, edges well approximated, no erythema. Small scab removed distally and bandage reapplied to this area) Neurological: Reports: No New Focal Deficit Psy/Mental Status: Reports: Alert, Normal Affect, Normal Mood *Q Meaningful Use (DIS) - VTE *Q VTE Anticoagulation Contraindications: Medical/Procedure Contrai
== END 2021-05-01 09:35 | disposition home or self-care (01) | DRG 948 ==
LOC: VM.MS 12:05
PROVIDERS: ADMIT Family Medicine; ATTEND Family Medicine
DX: R53.81 Other malaise (principal); Z47.1 Aftercare following joint replacement surgery; Z96.651 Presence of right artificial knee joint; F32.9 Major depressive disorder, single episode, unspecified; E78.5 Hyperlipidemia, unspecified; I10 Essential (primary) hypertension; E66.01 Morbid (severe) obesity due to excess calories; N40.0 Benign prostatic hyperplasia without lower urinary tract symptoms; K74.60 Unspecified cirrhosis of liver; E78.00 Pure hypercholesterolemia, unspecified; G47.30 Sleep apnea, unspecified; K21.9 Gastro-esophageal reflux disease without esophagitis; M19.90 Unspecified osteoarthritis, unspecified site; F41.9 Anxiety disorder, unspecified; Z85.46 Personal history of malignant neoplasm of prostate
CPT/HCPCS: 36415; 80053; 85025; 97110-GP; 97116-GP; 97162-GP; 97165-GO; A9270-GY